=== PATIENT | female | born 1965 | race Two or more races ===

== ENCOUNTER 2020-10-28 11:34 | Inpatient (IN) | payer OTHER ==
[2020-10-28] MEDS ORDERED: SODIUM CHLORIDE 0.9% 500 ML 500 ML IV STA (11:50)
[2020-10-28 12:14] LABS: Basophils # (A) 0.1 k/uL (0-0.2); Basophils % (A) 1 %; Eosinophils # (A) 0.2 k/uL (0-0.7); Eosinophils % (A) 2 %; HCT 37.1 % (34.0-46.0); HGB 12.3 gm/dL (11.4-16.0); Lymphocytes # (A) 1.5 k/uL (1.0-4.8); Lymphocytes % (A) 17 %; MCH 30.9 pg (25.0-35.0); MCHC 33.2 g/dL (31.0-37.0); MCV 92.9 fL (80.0-100.0); Monocytes # (A) 0.7 k/uL (0-1.0); Monocytes % (A) 8 %; Neutrophils # (A) 6.2 k/uL (1.3-7.7); Neutrophils % (A) 71 %; Platelet Count 510 k/uL (150-450); RBC 3.99 m/uL (3.80-5.40); RDW 12.1 % (11.5-15.5); WBC 8.8 k/uL (3.8-10.6)
[2020-10-28 12:16] LABS: Appearance,Urine Clear (Clear); Bilirubin,Urine Negative (Negative); Blood,Urine Negative (Negative); Color,Urine Light Yellow; Glucose,Urine (UA) Negative (Negative); Ketones,Urine Negative (Negative); Leukocyte Esterase,Urine Trace (Negative); Nitrite,Urine Negative (Negative); PH, Urine 6.5 (5.0-8.0); Protein,Urine Negative (Negative); RBC,Urine <1 /hpf (0-5); Specific Gravity,Urine 1.005 (1.001-1.035); Urobilinogen,Urine <2.0 mg/dL (<2.0); WBC,Urine 3 /hpf (0-5)
--- NOTE | 2020-10-28 12:19 | ED ---
Abdominal Pain HPI - General Chief Complaint: Abdominal Pain Stated Complaint: abd distention Time Seen by Provider: 10/28/20 11:41 Source: patient, RN notes reviewed Mode of arrival: ambulatory Limitations: no limitations - History of Present Illness Initial Comments: 54-year-old female presents emergency Department chief complaint abdominal pain and swelling. Patient states that she has not had a good bowel movement over a week states over the last couple weeks she's noticed that she's had increased abdominal distention she's had mild discomfort occasionally on the right side. She denies any melena, hematochezia, hematemesis, coffee-ground emesis, dysuria hematuria. Patient has no significant abdominal issues in the past. Patient denies any liver disease denies fevers chills chest pain states that she's had no shortness breath no leg pain or leg swelling. Patient states she had a small bowel movement this morning which is more liquid stools or anything. Patient was seen by urgent care sent for further evaluation. - Related Data Home Medications Medication Instructions Recorded Confirmed Psyllium Husk (with Sugar) 6 gm PO DAILY 10/28/20 10/28/20 [Metamucil Powder] polyethylene glycoL 3350 [Miralax] 17 gm PO DAILY PRN 10/28/20 10/28/20 Allergies Allergy/AdvReac Type Severity Reaction Status Date / Time No Known Allergies Allergy Verified 10/28/20 13:19 Review of Systems ROS Statement: Those systems with pertinent positive or pertinent negative responses have been documented in the HPI. ROS Other: All systems not noted in ROS Statement are negative. Past Medical History Past Medical History: No Reported History History of Any Multi-Drug Resistant Organisms: None Reported Past Surgical History: Hernia Repair Past Psychological History: Anxiety Smoking Status: Never smoker Past Alcohol Use History: None Reported Past Drug Use History: None Reported General Exam Limitations: no limitations General appearance: alert, in no apparent distress Head exam: Present: atraumatic, normocephalic, normal inspection Neck exam: Present: normal inspection, full ROM. Absent: tenderness, meningismus, lymphadenopathy Respiratory exam: Present: normal lung sounds bilaterally. Absent: respiratory distress, wheezes, rales, rhonchi, stridor Cardiovascular Exam: Present: regular rate, normal rhythm, normal heart sounds. Absent: systolic murmur, diastolic murmur, rubs, gallop, clicks GI/Abdominal exam: Present: soft, distended, tenderness (Minimal), normal bowel sounds. Absent: guarding, rebound, rigid Back exam: Absent: CVA tenderness (R), CVA tenderness (L) Neurological exam: Present: alert, oriented X3, reflexes normal. Absent: motor sensory deficit Skin exam: Present: warm, dry, intact, normal color. Absent: rash Course Vital Signs 10/28/20 10/28/20 11:36 13:20 Temperature 97.6 F Pulse Rate 88 95 Respiratory 18 16 Rate Blood Pressure 131/67 99/62 O2 Sat by Pulse 99 99 Oximetry Medical Decision Making - Medical Decision Making CT reviewed shows evidence of large amount of ascites, no other acute Abnormality he there is no significant mL is on lab work other than mild elevated liver enzymes and low albumin. Patient has not been alcohol drinker. There is no clear reason for her ascites at this time in which the patient will be admitted for further workup with GI. - Lab Data Result diagrams: 10/28/20 12:09 10/28/20 12:09 Lab Results 10/28/20 10/28/20 10/28/20 Range/Units 12:09 12:09 12:09 WBC 8.8 (3.8-10.6) k/uL RBC 3.99 (3.80-5.40) m/uL Hgb 12.3 (11.4-16.0) gm/dL Hct 37.1 (34.0-46.0) % MCV 92.9 (80.0-100.0) fL MCH 30.9 (25.0-35.0) pg MCHC 33.2 (31.0-37.0) g/dL RDW 12.1 (11.5-15.5) % Plt Count 510 H (150-450) k/uL MPV 7.0 Neutrophils % 71 % Lymphocytes % 17 % Monocytes % 8 % Eosinophils % 2 % Basophils % 1 % Neutrophils # 6.2 (1.3-7.7) k/uL Lymphocytes # 1.5 (1.0-4.8) k/uL Monocytes # 0.7 (0-1.0) k/uL Eosinophils # 0.2 (0-0.7) k/uL Basophils # 0.1 (0-0.2) k/uL PT 10.5 (9.0-12.0) sec INR 1.0 (<1.2) APTT 23.1 (22.0-30.0) sec Sodium (137-145) mmol/L Potassium (3.5-5.1) mmol/L Chloride (98-107) mmol/L Carbon Dioxide (22-30) mmol/L Anion Gap mmol/L BUN (7-17) mg/dL Creatinine (0.52-1.04) mg/dL Est GFR (CKD-EPI)AfAm (>60 ml/min/1.73 sqM) Est GFR (CKD-EPI)NonAf (>60 ml/min/1.73 sqM) Glucose (74-99) mg/dL Plasma Lactic Acid Yasmani (0.7-2.0) mmol/L Calcium (8.4-10.2) mg/dL Total Bilirubin (0.2-1.3) mg/dL AST (14-36) U/L ALT (4-34) U/L Alkaline Phosphatase (38-126) U/L Total Protein (6.3-8.2) g/dL Albumin (3.5-5.0) g/dL Amylase (30-110) U/L Lipase (23-300) U/L Urine Color Light Yellow Urine Appearance Clear (Clear) Urine pH 6.5 (5.0-8.0) Ur Specific [place] 1.005 (1.001-1.035) Urine Protein Negative (Negative) Urine Glucose (UA) Negative (Negative) Urine Ketones Negative (Negative) Urine Blood Negative (Negative) Urine Nitrite Negative (Negative) Urine Bilirubin Negative (Negative) Urine Urobilinogen <2.0 (<2.0) mg/dL Ur Leukocyte Esterase Trace H (Negative) Urine RBC <1 (0-5) /hpf Urine WBC 3 (0-5) /hpf 10/28/20 10/28/20 Range/Units 12:09 12:09 WBC (3.8-10.6) k/uL RBC (3.80-5.40) m/uL Hgb (11.4-16.0) gm/dL Hct (34.0-46.0) % MCV (80.0-100.0) fL MCH (25.0-35.0) pg MCHC (31.0-37.0) g/dL RDW (11.5-15.5) % Plt Count (150-450) k/uL MPV Neutrophils % % Lymphocytes % % Monocytes % % Eosinophils % % Basophils % % Neutrophils # (1.3-7.7) k/uL Lymphocytes # (1.0-4.8) k/uL Monocytes # (0-1.0) k/uL Eosinophils # (0-0.7) k/uL Basophils # (0-0.2) k/uL PT (9.0-12.0) sec INR (<1.2) APTT (22.0-30.0) sec Sodium 130 L (137-145) mmol/L Potassium 4.6 (3.5-5.1) mmol/L Chloride 94 L (98-107) mmol/L Carbon Dioxide 28 (22-30) mmol/L Anion Gap 8 mmol/L BUN 12 (7-17) mg/dL Creatinine 0.60 (0.52-1.04) mg/dL Est GFR (CKD-EPI)AfAm >90 (>60 ml/min/1.73 sqM) Est GFR (CKD-EPI)NonAf >90 (>60 ml/min/1.73 sqM) Glucose 104 H (74-99) mg/dL Plasma Lactic Acid Yasmani 1.0 (0.7-2.0) mmol/L Calcium 9.5 (8.4-10.2) mg/dL Total Bilirubin 0.9 (0.2-1.3) mg/dL AST 40 H (14-36) U/L ALT 27 (4-34) U/L Alkaline Phosphatase 199 H (38-126) U/L Total Protein 6.4 (6.3-8.2) g/dL Albumin 3.4 L (3.5-5.0) g/dL Amylase 176 H (30-110) U/L Lipase 62 (23-300) U/L Urine Color Urine Appearance (Clear) Urine pH (5.0-8.0) Ur Specific [place] (1.001-1.035) Urine Protein (Negative) Urine Glucose (UA) (Negative) Urine Ketones (Negative) Urine Blood (Negative) Urine Nitrite (Negative) Urine Bilirubin (Negative) Urine Urobilinogen (<2.0) mg/dL Ur Leukocyte Esterase (Negative) Urine RBC (0-5) /hpf Urine WBC (0-5) /hpf Disposition Clinical Impression: Ascites, Abdominal pain Disposition: ADMITTED IP TO THIS HOSP Condition: Fair Referrals: None,Stated [Primary Care Provider] - 1-2 days
[2020-10-28 12:24] LABS: ALT 27 U/L (4-34); AST 40 U/L (14-36); African American GFR (CKD) >90 (>60 ml/min/1.73 sqM); Albumin 3.4 g/dL (3.5-5.0); Alkaline Phosphatase 199 U/L (38-126); Amylase 176 U/L (30-110); Anion Gap 8 mmol/L; Blood Urea Nitrogen 12 mg/dL (7-17); Calcium 9.5 mg/dL (8.4-10.2); Carbon Dioxide 28 mmol/L (22-30); Chloride 94 mmol/L (98-107); Glucose 104 mg/dL (74-99); Lipase 62 U/L (23-300); Non-African American GFR(CKD) >90 (>60 ml/min/1.73 sqM); Potassium 4.6 mmol/L (3.5-5.1); Sodium 130 mmol/L (137-145); Total Bilirubin 0.9 mg/dL (0.2-1.3); Total Protein 6.4 g/dL (6.3-8.2)
[2020-10-28 12:25] LABS: Partial Thromboplastin Time 23.1 sec (22.0-30.0); Prothrombin Time 10.5 sec (9.0-12.0)
--- NOTE | 2020-10-28 13:14 | CT ---
EXAMINATION TYPE: CT abdomen pelvis w con DATE OF EXAM: 10/28/2020 COMPARISON: None INDICATION: constipation, bloating DLP: 763.7 mGycm, Automated exposure control for dose reduction was used. CONTRAST: 100 mL of Isovue 300. Study performed without Oral Contrast TECHNIQUE: Axial images were obtained from above the diaphragm to the pubic rami in the axial plane a t 5 mm thick sections. Reconstructed images are reviewed on the computer in the coronal plane. FINDINGS: Limited CT sections are obtained the lung bases. The lung bases are clear. Small hiatal hernia is p resent. CT ABDOMEN: Abundant ascites is present. Liver: Normal Spleen: Scattered calcified granuloma are within the spleen. Pancreas: Normal Adrenal glands: The adrenal glands are normal. Gallbladder: Normal Kidneys: No masses are evident. No hydronephrosis is present. No cysts are present. Delayed images were obtained through the kidneys, which remain unremarkable. Aorta: Vascular calcification is within the aorta. Inferior vena cava: Normal. CT PELVIS: Loops of bowel within the abdomen and pelvis are normal. Studies without oral contrast limiting b owel evaluation. Appendix: Normal as visualized. Urinary bladder: Normal. Genitourinary structures: Uterus appears normal. Adnexal regions appear normal. Osseous structures: No suspicious lytic or sclerotic lesions. IMPRESSIONS: 1. Ascites.
[2020-10-28] MEDS ORDERED: NALOXONE 0.4 MG/ML 1 ML VIAL IV PRN (13:34)
--- NOTE | 2020-10-28 14:38 | US ---
EXAMINATION TYPE: US liver DATE OF EXAM: 10/28/2020 COMPARISON: CT performed same day CLINICAL HISTORY: 54-year-old female Ascites. ABD distention TECHNIQUE: Multiple sonographic images of the right upper quadrant are obtained. FINDINGS: EXAM MEASUREMENTS: Liver Length: 14.9 cm Gallbladder Wall: 0.3 cm CBD: 0.4 cm Right Kidney: 11.1 x 4.2 x 4.9 cm Pancreas: Obscured by bowel gas Liver: Small 5 mm echogenic lesion anterior right liver lobe. Otherwise, there is normal homogeneous appearance without focal lesion. Gallbladder: No abnormal gallbladder distention, wall thickening, or shadowing calculi. Adenomyomatosis anterior wall with ringdown artifact. Evidence for sonographic Flores's sign: No CBD: wnl Right Kidney: wnl Moderate amount of ascites present surrounding the liver and within the right flank IMPRESSION: 1. Moderate ascites visualized. 2. Small 5 mm echogenic lesion anterior right liver lobe probably represents a tiny hemangioma. 3-6 m onth follow-up ultrasound recommended to reassess as this is not clearly demonstrated by CT. 3. Benign adenomyomatosis of the gallbladder. 4. Second look at the patient's CT performed earlier today suggests diffuse omental cake and abnormal solid cystic lesions of the bilateral adnexa in addition to the ascites. Correlate with CA-125 and p ossibility of metastatic ovarian cancer.
--- NOTE | 2020-10-28 16:39 | P.HPIM ---
History of Present Illness Patient is a pleasant 54-year-old female came in with complaints of abdominal distention for couple weeks found to have ascites. Patient denied any significant pain but was comparing of discomfort. Patient initially believed she may be constipated got some medications for constipation which relieved medications for her other discomfort. Patient denied any fever chills patient denied any history of alcohol abuse. Patient denied any significant past medical history in the past. Review of Systems REVIEW OF SYSTEMS: CONSTITUTIONAL: No fever, no malaise, no fatigue. HEENT: No recent visual problems or hearing problems. Denied any sore throat. CARDIOVASCULAR: No chest pain, orthopnea, PND, no palpitations, no syncope. PULMONARY: No shortness of breath, no cough, no hemoptysis. GASTROINTESTINAL: No diarrhea, no nausea, no vomiting. NEUROLOGICAL: No headaches, no weakness, no numbness. HEMATOLOGICAL: Denies any bleeding or petechiae. GENITOURINARY: Denies any burning micturition, frequency, or urgency. MUSCULOSKELETAL/RHEUMATOLOGICAL: Denies any joint pain, swelling, or any muscle pain. ENDOCRINE: Denies any polyuria or polydipsia. The rest of the 14-point review of systems is negative. Past Medical History Past Medical History: Asthma Additional Past Medical History / Comment(s): Bronchitis, chronic low back pain/mild scoliosis, sinus problems/seasonal allergies. History of Any Multi-Drug Resistant Organisms: None Reported Past Surgical History: Hernia Repair Additional Past Surgical History / Comment(s): Umbilical hernia, D&Cs, wisdom teeth extractions. Additional Past Anesthesia/Blood Transfusion Reaction / Comment(s): Hypotensive with hernia surgery Smoking Status: Former smoker - Past Family History Mother Family Medical History: No Reported History Additional Family Medical History / Comment(s): Mother is 83 yrs old and healthy Father Family Medical History: Cancer Additional Family Medical History / Comment(s): Father is at 85 yrs. He had colon cancer. Medications and Allergies Home Medications Medication Instructions Recorded Confirmed Type Psyllium Husk (with Sugar) 6 gm PO DAILY 10/28/20 10/28/20 History [Metamucil Powder] polyethylene glycoL 3350 [Miralax] 17 gm PO DAILY PRN 10/28/20 10/28/20 History Allergies Allergy/AdvReac Type Severity Reaction Status Date / Time No Known Allergies Allergy Verified 10/28/20 13:19 Physical Exam Vitals: Vital Signs Temp Pulse Resp BP Pulse Ox 10/28/20 15:19 95 18 101/78 100 10/28/20 13:20 95 16 99/62 99 10/28/20 11:36 97.6 F 88 18 131/67 99 Intake and Output 10/28/20 10/28/20 10/28/20 06:59 14:59 22:59 Other: Weight 66.088 kg 66.088 kg PHYSICAL EXAMINATION: GENERAL: The patient is alert and oriented x3, not in any acute distress. Well developed, well nourished. HEENT: Pupils are round and equally reacting to light. EOMI. No scleral icterus. No conjunctival pallor. Normocephalic, atraumatic. No pharyngeal erythema. No thyromegaly. CARDIOVASCULAR: S1 and S2 present. No murmurs, rubs, or gallops. PULMONARY: Chest is clear to auscultation, no wheezing or crackles. ABDOMEN: Distended abdomen with fluid shift. MUSCULOSKELETAL: No joint swelling or deformity. EXTREMITIES: No cyanosis, clubbing, or pedal edema. NEUROLOGICAL: Gross neurological examination did not reveal any focal deficits. SKIN: No rashes. Results CBC & Chem 7: 10/28/20 12:09 10/28/20 12:09 Labs: Abnormal Lab Results - Last 24 Hours (Table) 10/28/20 10/28/20 10/28/20 Range/Units 12:09 12:09 12:09 Plt Count 510 H (150-450) k/uL Sodium 130 L (137-145) mmol/L Chloride 94 L (98-107) mmol/L Glucose 104 H (74-99) mg/dL AST 40 H (14-36) U/L Alkaline Phosphatase 199 H (38-126) U/L Albumin 3.4 L (3.5-5.0) g/dL Amylase 176 H (30-110) U/L Ur Leukocyte Esterase Trace H (Negative) Thrombosis Risk Factor Assmnt - Choose All That Apply Any of the Below Risk Factors Present?: Yes Each Factor Represents 1 point: Age 41-60 years Other Risk Factors: No Other congenital or acquired thrombophilia - If yes, enter type in comment: No Thrombosis Risk Factor Assessment Total Risk Factor Score: 1 Thrombosis Risk Factor Assessment Level: Low Risk Assessment and Plan Plan: -Ascites: Patient doesn't have any risk factors for cirrhosis patient does have a family history of colon cancer in father. CT of the abdomen is suspicious for adnexal masses and there is a concern of ovarian cancer I'll obtain tumor markers for ovarian cancer, gynecology will be consulted, ordered ultrasound- guided paracentesis rate will obtain the LDH, cytology cell count protein and albumin. Patient will be started on IV Lasix. -Hyponatremia: Hypervolemic hyponatremia expected to improve with IV Lasix -Anxiety disorder.
[2020-10-28] MEDS: FUROSEMIDE 10 MG/ML 4 ML VIAL IV SCH (20:13)
[2020-10-29] MEDS ORDERED: ONDANSETRON 4 MG/2 ML VIAL IVP PRN (02:18)
[2020-10-29] MEDS ORDERED: SODIUM CHLORIDE 0.9% 500 ML 500 ML IV ONE (02:18)
[2020-10-29 06:40] LABS: ALT 29 U/L (4-34); AST 46 U/L (14-36); African American GFR (CKD) >90 (>60 ml/min/1.73 sqM); Albumin 3.1 g/dL (3.5-5.0); Alkaline Phosphatase 185 U/L (38-126); Anion Gap 8 mmol/L; Blood Urea Nitrogen 12 mg/dL (7-17); Calcium 8.9 mg/dL (8.4-10.2); Carbon Dioxide 30 mmol/L (22-30); Chloride 94 mmol/L (98-107); Glucose 108 mg/dL (74-99); Non-African American GFR(CKD) >90 (>60 ml/min/1.73 sqM); Potassium 4.7 mmol/L (3.5-5.1); Sodium 132 mmol/L (137-145); Total Bilirubin 0.7 mg/dL (0.2-1.3)
[2020-10-29] MEDS: FUROSEMIDE 10 MG/ML 4 ML VIAL IV SCH (08:48)
--- NOTE | 2020-10-29 09:09 | P.CON ---
Consult Note - . Consult date: 10/29/20 Assessment/Plan:: This is a 54-year-old white female 6 para 2022 last menstrual period 5-6 years ago. Patient presented to the emergency room yesterday with "my stomach is swollen". She noticed increased abdominal swelling approximately 2 weeks ago. She states she has been fatigued, and not feeling well, but changed to working nights in July but she was just adjusting to new schedule. Her weight has been stable. Appetite is good. She has no other complaints or Past medical history is essentially negative. Past surgical history D&C 2, umbilical herniorrhaphy, wisdom teeth extracted. Past obstetric history normal spontaneous vaginal deliveries 4, 1 infant 24 hours of life. The remaining children are alive and healthy. Current medications Colleen as needed for seasonal ALLERGIES. ALLERGIES none known. Social history patient smoked briefly in her 20s. She denies alcohol or drug use. She works at [employer], lives at home alone in [place] as she is . Family history father had colon cancer in his 50s, at age 86. Mother is healthy at age 83. A maternal grandmother as well as a maternal aunt both had breast cancer. Patient's last mammogram was 5 years ago. On exam patient is 5 foot 5 inches, 146 pounds, vital signs are stable with the exception of her pulse in the 120s. HEENT exam is negative, good dentition, no thyromegaly. Chest is clear in all hernandez. Cardiac exam reveals regular rate and rhythm. Abdomen is distended to the xiphoid process. It is tense. There are hypoactive bowel sounds. Extremities reveal no edema, good peripheral pulses, good range of motion. Cervix is small and mobile, firm. It pelvic examination is very difficult secondary to an amount of pressure from above resulting from a large amount of ascites. CA-125 is over 12,000. UA is negative. Patient is dehydrated clinically. Computed tomography scan reveals normal-appearing ovaries and uterus, a large amount of abdominal ascites is noted. Impression: Massive abdominal ascites, suspect ovarian cancer. Elevated CA-125. Patient scheduled for sonographic tenting of the fluid today. Await cytology report. I did discuss with the patient our considerations in terms of the differential diagnosis. Will follow.
--- NOTE | 2020-10-29 13:39 | P.PN ---
Subjective Progress Note Date: 10/29/20 Patient is a pleasant 54-year-old female came in with complaints of abdominal distention for couple weeks found to have ascites. Patient denied any significant pain but was comparing of discomfort. Patient initially believed she may be constipated got some medications for constipation which relieved me dications for her other discomfort. Patient denied any fever chills patient denied any history of alcohol abuse. Patient denied any significant past medical history in the past. 10/29/2020 Patient is seen and evaluated and follow-up this morning currently awaiting to undergo paracentesis with interventional radiology for ascites and continued abdominal distention. Gynecology consulted and following. CA 125 marker above 12,000. Patient is maintained on IV Lasix although held this morning as she was feeling dizzy in a moment of hypotension. Will await paracentesis and cytology report. Review of systems: Constitutional: No reports of fatigue, fever, or chills Cardiovascular: No reports of chest pain or palpitations Respiratory: No reports of shortness of breath or cough GI: No reports of nausea, vomiting, or diarrhea, reports continued abdominal distention that is nontender : No reports of dysuria or retention Neurovascular: No reports of weakness or numbness All medications have been reviewed Objective - Vital Signs Vital signs: Vital Signs Temp 98.3 F 10/29/20 07:40 Pulse 114 H 10/29/20 11:15 Resp 18 10/29/20 11:15 BP 95/57 10/29/20 11:15 Pulse Ox 95 10/29/20 11:15 Intake & Output 10/28/20 10/29/20 10/29/20 18:59 06:59 18:59 Intake Total 240 Output Total 50 600 50 Balance 190 -600 -50 Weight 66.3 kg 64.1 kg Intake: Oral 240 Output: Urine 50 600 50 Other: Voiding Method Toilet # Bowel Movements 1 - Exam GENERAL: The patient is alert and oriented x3, not in any acute distress. Well developed, well nourished. HEENT: Pupils are round and equally reacting to light. EOMI. No scleral icterus. No conjunctival pallor. Normocephalic, atraumatic. No pharyngeal erythema. No thyromegaly. CARDIOVASCULAR: S1 and S2 present. No murmurs, rubs, or gallops. PULMONARY: Chest is clear to auscultation, no wheezing or crackles. ABDOMEN: Distended abdomen with fluid shift. soft, non-tender, taut MUSCULOSKELETAL: No joint swelling or deformity. EXTREMITIES: No cyanosis, clubbing, or pedal edema. NEUROLOGICAL: Gross neurological examination did not reveal any focal deficits. SKIN: No rashes. - Labs CBC & Chem 7: 10/28/20 12:09 10/29/20 05:38 Labs: Abnormal Lab Results - Last 24 Hours (Table) 10/28/20 10/28/20 10/28/20 Range/Units 12:09 12:09 12:09 Plt Count 510 H (150-450) k/uL Sodium 130 L (137-145) mmol/L Chloride 94 L (98-107) mmol/L Glucose 104 H (74-99) mg/dL AST 40 H (14-36) U/L Alkaline Phosphatase 199 H (38-126) U/L Total Protein (6.3-8.2) g/dL Albumin 3.4 L (3.5-5.0) g/dL Amylase 176 H (30-110) U/L CA 125 Antigen (0.0-30.1) U/mL Ur Leukocyte Esterase Trace H (Negative) 10/28/20 10/29/20 Range/Units 12:09 05:38 Plt Count (150-450) k/uL Sodium 132 L (137-145) mmol/L Chloride 94 L (98-107) mmol/L Glucose 108 H (74-99) mg/dL AST 46 H (14-36) U/L Alkaline Phosphatase 185 H (38-126) U/L Total Protein 6.0 L (6.3-8.2) g/dL Albumin 3.1 L (3.5-5.0) g/dL Amylase (30-110) U/L [place] 125 Antigen >99998.0 H (0.0-30.1) U/mL Ur Leukocyte Esterase (Negative) Assessment and Plan Assessment: -Ascites: Patient doesn't have any risk factors for cirrhosis patient does have a family history of colon cancer in father. CT of the abdomen is suspicious for adnexal masses and there is a concern of ovarian cancer. [place]125 [place] [address]. Gynecology consulted and following. Patient to undergo U/S guided paracentesis with IR today. Labs ordered and pending at this time. Patient maintained on IV Lasix. -Hyponatremia: Hypervolemic hyponatremia expected to improve with IV Lasix, improving, current sodium is 132 -Anxiety disorder Plan: Continue with current medications. Patient is maintained on IV lasix and will continue. Patient had lower blood pressure readings and feeling dizzy and lasix was held this morning by nursing staff. Patient to undergo paracentesis today and labs ordered and are pending. Follow up cytology and gynecology following. CA 125 marker elevated. Sodium improved and will repeat labs in am.
--- NOTE | 2020-10-29 14:46 | US ---
Ultrasound-guided paracentesis. DATE OF EXAM: 10/29/2020 CLINICAL HISTORY: Ascites The procedure was discussed with the patient. The risks, complications, benefits, and alternatives we re discussed and any questions were answered. Informed consent was obtained. The patient was placed s upine on the ultrasound table and prepped and draped in the usual sterile fashion. All elements of maximal barrier technique were utilized. Under ultrasound guidance, access into the right lower quadrant was obtained, via the paracentesis catheter system and direct ultrasound guidanc e. Approximately 2.8 liters of serous fluid was removed. The patient was stable throughout the procedure and remained stable upon discharge from Department of Radiology. Sample sent to pathology for analys is. IMPRESSION: Successful paracentesis under ultrasound guidance.
[2020-10-29 16:48] LABS: Appearance,BF Cloudy; Color,BF Orange; Nucleated Cells, Body Fluid 1075 /uL; RBC, Body Fluid 6750 /uL
[2020-10-29 16:53] LABS: Mononuclear WBC,Body Fluid 75 %; Polynuclear WBC,Body Fluid 24 %; Total Cells Counted,Body Fluid 100
--- NOTE | 2020-10-29 17:10 | CONS ---
CONSULTATION DATE OF DICTATION: 10/29/2020 REASON FOR CONSULTATION: New-onset ascites. HISTORY OF PRESENT ILLNESS: The patient is a 54-year-old pleasant white female who came into the emergency room complaining of abdominal distention for the last 2-3 weeks' duration. She denies any abdominal pain. No recent weight loss. No nausea, no vomiting. No rectal bleeding or melena. She came to the emergency room and had a CT of the abdomen and pelvis done that showed massive ascites. Hence we are consulted in regards to this issue. The patient denies any history of chronic liver disease. No history of jaundice or hepatitis in the past. No history of alcohol abuse. PAST MEDICAL HISTORY: Significant for asthma. PAST SURGICAL HISTORY: Hernia repair. MEDICATIONS AT HOME: MiraLAX as needed. ALLERGIES: NO KNOWN DRUG ALLERGIES. SOCIAL HISTORY: No smoking. No alcohol use. FAMILY HISTORY: Mother is healthy at 83. Father at 85 with colon cancer. REVIEW OF SYSTEMS: CARDIOPULMONARY: No chest pain or shortness of breath. GENITOURINARY: No dysuria or hematuria. MUSCULOSKELETAL: Unremarkable. SKIN: Unremarkable. ENDOCRINE: Unremarkable. PSYCHIATRIC: Unremarkable. NEUROLOGY: Unremarkable. ENT/VISION: Unremarkable. CONSTITUTIONAL: No recent weight loss. No fever, chills, night sweats. PHYSICAL EXAMINATION: Blood pressure is 100/64, pulse rate 125, temperature 99.1. HEENT examination unremarkable. Conjunctivae pink. Sclerae anicteric. Oral cavity no lesions. NECK: No JVD or lymph node enlargement. CHEST: Clear to auscultation. HEART: Regular rate and rhythm. ABDOMEN: Soft. There was some free fluid noted. She just returned from paracentesis and 3.8 L of fluid was removed. EXTREMITIES: No pedal edema. SKIN: No rashes. NEUROLOGIC: Alert and oriented x3. No focal deficits. LABS: WBC 8.8, hemoglobin 12.3, platelets normal. Basic metabolic panel is within normal limits. AST 40, ALT 27, T-bilirubin 0.9 and alkaline phosphatase is 199. CA-125 was more than 12,000. She had a CT of the abdomen and pelvis done in the emergency room that showed evidence of ascites; no other masses identified; small hiatal hernia noted. Uterus appeared normal. Adnexal regions also appeared normal. IMPRESSION: New-onset ascites with elevated CA-125 at more than 12,000 consistent with BAKERY TECHNICIAN malignancy. The patient does not have any history of chronic liver disease or history of alcohol use. RECOMMENDATIONS: 1. Will proceed with large-volume paracentesis for diagnostic and therapeutic purposes and send it for fluid analysis as well as cytology. 2. Obtain BAKERY TECHNICIAN consultation. 3. Symptomatic and supportive care. 4. Will follow with you closely. Thank you for this consultation. NATE / MORTEZAN: [id number] /
--- NOTE | 2020-10-29 20:48 | XR ---
EXAMINATION TYPE: XR chest 1V DATE OF EXAM: 10/29/2020 COMPARISON: NONE HISTORY: Elevated heart rate TECHNIQUE: Single view FINDINGS: There is no heart failure nor confluent pneumonic infiltrate. Costophrenic angles are clear . There are calcified granulomata at the pulmonary samantha. There is no pleural effusion. Bony thorax is intact. IMPRESSION: No active cardiopulmonary disease. Old granulomatous disease.
[2020-10-29 23:36] LABS: Total Protein, Body Fluid 3740 mg/dL
[2020-10-29 23:55] LABS: Glucose, BF Source Ascites; Glucose, Body Fluid 99 mg/dL; LDH, Body Fluid Source Ascites
[2020-10-30 00:16] LABS: Albumin, Fluid Source Ascites
--- NOTE | 2020-10-30 08:27 | P.PN ---
Subjective Progress Note Date: 10/30/20 Principal diagnosis: Ascites, tachycardia Objective - Vital Signs Vital signs: Vital Signs Temp 98.2 F 10/30/20 02:57 Pulse 117 H 10/30/20 01:58 Resp 18 10/30/20 01:58 BP 104/72 10/30/20 01:58 Pulse Ox 98 10/30/20 01:58 Intake & Output 10/29/20 10/30/20 10/30/20 18:59 06:59 18:59 Intake Total 1500 477 Output Total 500 950 Balance 1000 -473 Weight 64.1 kg Intake: Intake, IV Titration 237 Amount Sodium Chloride 0.9% 500 237 ml 500 ml @ 999 mls/hr IV .Q31M ONE Rx#:[id number] Oral 1500 240 Output: Urine 500 950 Other: Voiding Method Toilet Toilet # Voids 1 # Bowel Movements 1 - Constitutional General appearance: Present: average body habitus, cooperative - EENT Eyes: Present: PERRLA ENT: Present: hearing grossly normal - Respiratory Respiratory: bilateral: CTA - Cardiovascular Rhythm: regular - Gastrointestinal Gastrointestinal Comment(s): Softly distended consistant with ascites, clinically improved after sonographic tap yesterday General gastrointestinal: Present: distended - Neurologic Neurologic: Present: CNII-XII intact - Musculoskeletal Musculoskeletal: Present: gait normal - Psychiatric Psychiatric: Present: A&O x's 3, appropriate affect, intact judgment & insight - Labs CBC & Chem 7: 10/28/20 12:09 10/29/20 05:38 Labs: Microbiology - Last 24 Hours (Table) 10/29/20 10:25 Gram Stain - Preliminary Ascites Fluid Body Fluid Culture - Preliminary 10/29/20 10:25 Anaerobic Culture - Preliminary Ascites Fluid Assessment and Plan Assessment: Ascitic fluid, cytology pending. Continued tachycardia Plan: Would recommend follow up with [employer], Dr. Steen with [facility], for likely staging procedure if cytology is consistent with ovarian or primary peritoneal cancer. Discussed with patient. Management medically at present for continued but improving tachycardia. Thank you for the consult. Time with Patient: Less than 30
[2020-10-30 11:01] LABS: HCT 38.8 % (34.0-46.0); HGB 12.4 gm/dL (11.4-16.0); MCH 29.9 pg (25.0-35.0); MCHC 31.9 g/dL (31.0-37.0); MCV 93.6 fL (80.0-100.0); Mean Platelet Volume 7.3; Platelet Count 533 k/uL (150-450); RBC 4.14 m/uL (3.80-5.40); RDW 12.5 % (11.5-15.5)
[2020-10-30 11:10] LABS: ALT 28 U/L (4-34); AST 46 U/L (14-36); African American GFR (CKD) >90 (>60 ml/min/1.73 sqM); Albumin/Globulin Ratio 1.1; Alkaline Phosphatase 170 U/L (38-126); Anion Gap 7 mmol/L; Blood Urea Nitrogen 14 mg/dL (7-17); Calcium 8.7 mg/dL (8.4-10.2); Carbon Dioxide 27 mmol/L (22-30); Chloride 95 mmol/L (98-107); Globulin 2.8 g/dL; Glucose 107 mg/dL (74-99); Non-African American GFR(CKD) >90 (>60 ml/min/1.73 sqM); Potassium 4.3 mmol/L (3.5-5.1); Sodium 129 mmol/L (137-145); Total Bilirubin 0.8 mg/dL (0.2-1.3); Total Protein 5.8 g/dL (6.3-8.2)
[2020-10-30] MEDS ORDERED: SODIUM CHLORIDE 0.9% 1,000 ML IV ONE (11:48)
--- NOTE | 2020-10-30 13:00 | P.PN ---
Subjective Progress Note Date: 10/30/20 Principal diagnosis: New-onset ascites This is a pleasant 54-year-old white female who came into the emergency room complaining of abdominal distention for the last 2 weeks duration. She states she noticed becoming very uncomfortable and the distention and worsening over the last 2-3 days prior to admission. She denies any recent weight loss, nausea or vomiting. She had a admission CT of the abdomen and pelvis done which showed ascites, she is status post therapeutic and diagnostic paracentesis yesterday. They removed 2.8 L of fluid, fluid cytology ordered and pending. Patient had a CEA 125 greater than 12,000. Today she states she is feeling much better, distention is improved. She denies any abdominal pain, nausea, or vomiting. Objective - Vital Signs Vital signs: Vital Signs Temp 98.2 F 10/30/20 02:57 Pulse 117 H 10/30/20 01:58 Resp 18 10/30/20 01:58 BP 104/72 10/30/20 01:58 Pulse Ox 98 10/30/20 01:58 Intake & Output 10/29/20 10/30/20 10/30/20 18:59 06:59 18:59 Intake Total 1500 477 Output Total 500 950 Balance 1000 -473 Weight 64.1 kg Intake: Intake, IV Titration 237 Amount Sodium Chloride 0.9% 500 237 ml 500 ml @ 999 mls/hr IV .Q31M ONE Rx#:[id number] Oral 1500 240 Output: Urine 500 950 Other: Voiding Method Toilet Toilet # Voids 1 # Bowel Movements 1 - Exam General appearance: The patient is alert, oriented, appears in no acute distress. HET: Head is normocephalic and atraumatic. Conjunctiva pink. Sclera anicteric. Neck: Supple without lymphadenopathy. Abdomen: Soft, nontender, mildly distended with bowel sounds. No guarding or rigidity. Extremities: Normal skin color and turgor. No pedal edema Skin: No rashes, no jaundice Neurological: No focal deficits. Alert and oriented 3. - Labs CBC & Chem 7: 10/30/20 10:16 10/30/20 10:16 Labs: Microbiology - Last 24 Hours (Table) 10/29/20 10:25 Gram Stain - Preliminary Ascites Fluid Body Fluid Culture - Preliminary 02/16/21 10:25 Anaerobic Culture - Preliminary Ascites Fluid Assessment and Plan (1) Ascites Narrative/Plan: New Onset ascites with elevated CA-125 at more than 12,000 consistent with BOTTOM LOADER malignancy. Patient does not have any history of chronic liver disease or history of alcohol abuse. He underwent therapeutic and diagnostic paracentesis yesterday was 2.8 L of fluid removal. Fluid cytology ordered and pending. Fluid albumin 2.90, SAAG score less than 1.1, unlikely dealing with liver as source. Current Visit: Yes Status: Acute Code(s): R18.8 - OTHER ASCITES SNOMED Code(s): 624407285 (2) Pulmonary emboli Narrative/Plan: This patient had a positive d-dimer, CTA of chest showed bilateral pulmonary emboli. Will be started on heparin drip, managed by primary medicine team. Current Visit: Yes Status: Acute Code(s): I26.99 - OTHER PULMONARY EMBOLISM WITHOUT ACUTE COR PULMONALE SNOMED Code(s): 38781003 Plan: 1. Supportive care 2. BOTTOM LOADER consultation, recommendations appreciated 3. Patient is status post paracentesis, Cytology studies pending 4. Agree with anticoagulation for bilateral pulmonary emboli being managed by primary medicine team Thank you for this consultation, we will continue to follow Dr. Carlin Conn I agree with the dictator's note, documented as a scribe by Karen Hurley.
--- NOTE | 2020-10-30 14:10 | CT ---
CT CHEST FOR PULMONARY EMBOLISM. EXAMINATION TYPE: CT angio chest DATE OF EXAM: 10/30/2020 INDICATION: Elevated d-dimer. CT DLP: 137.6 mGycm, Automated exposure control for dose reduction was used. CONTRAST: Patient injected with 100 mL of Isovue 370. COMPARISON: None TECHNIQUE: CT of the chest is performed on a spiral scan at 2 mm thick sections. Study is performed with intravenous contrast timed for evaluation for pulmonary embolism. This will limit additional po rtions of the evaluation. 3-D MIP images reconstructed by the technologist are reviewed on the compu ter in the coronal and sagittal planes. FINDINGS: Pulmonary emboli extending into the left lower lobe. Couple of smaller pulmonary emboli are in the ri t lower lobe pulmonary arteries. No mediastinal or hilar adenopathy enlarged by CT criteria is evident. The ascending aorta diameter at the level of the main pulmonary artery is 2.9 cm. The main pulmonary artery diameter at the bifur cation is 2.4 cm. Lung windows are clear. Azygos fissure is present. There may be some prominence of the azygos vein. Limited CT section through the upper abdomen. Ascites is present. IMPRESSIONS: 1. Bilateral lower lobe pulmonary emboli. 2. Ascites.
[2020-10-30] MEDS ORDERED: HEPARIN SODIUM,PORCINE 10,000 UNIT/ML 1 ML VIAL IV ONE (14:52)
[2020-10-30 15:14] LABS: Partial Thromboplastin Time 23.5 sec (22.0-30.0); Prothrombin Time 10.8 sec (9.0-12.0)
[2020-10-30] MEDS: HEPARIN SOD,PORK IN 0.45% NACL 25,000 UNIT in 0.45% NACL 1 250ML.BAG IV SCH (16:22)
[2020-10-30] MEDS: HEPARIN SODIUM,PORCINE 5,000 UNIT/ML 1 ML VIAL IV PRN (22:24)
[2020-10-31] MEDS: HEPARIN SODIUM,PORCINE 5,000 UNIT/ML 1 ML VIAL IV PRN (06:32)
[2020-10-31 09:00] LABS: Basophils # (A) 0.13 X 10*3/uL (0.00-0.10); Basophils % (A) 1.2 %; Eosinophils # (A) 0.04 X 10*3/uL (0.04-0.35); Eosinophils % (A) 0.4 %; HGB 11.5 g/dL (12.0-15.0); Lymphocytes # (A) 1.99 X 10*3/uL (0.90-5.00); Lymphocytes % (A) 18.8 %; MCH 30.3 pg (27.0-32.0); MCHC 32.9 g/dL (32.0-37.0); MCV 92.3 fL (80.0-97.0); Mean Platelet Volume 10.4 fL (9.5-12.2); Monocytes # (A) 1.22 X 10*3/uL (0.20-1.00); Monocytes % (A) 11.5 %; Neutrophils # (A) 7.18 X 10*3/uL (1.80-7.70); Neutrophils % (A) 67.6 %; Platelet Count 497 X 10*3/uL (140-440); RBC 3.79 X 10*6/uL (4.10-5.20); RDW 12.5 % (11.5-14.5); WBC 10.61 X 10*3/uL (4.50-10.00)
[2020-10-31] MEDS ORDERED: SODIUM CHLORIDE 0.9% 1,000 ML IV SCH (09:15)
--- NOTE | 2020-10-31 10:47 | P.CONS ---
History of Present Illness - Reason for Consult Consult date: 10/31/20 sudden onset ascites Requesting physician: Chi Elizabeth - Chief Complaint abd pain and distension - History of Present Illness Ms. Nagel is a very pleasant 54 yo female that we have been asked to see for presentation to the hospital with abdominal pain and gross ascites. Patient is status post a paracentesis, pathology pending. CT AP revealed ascites and maybe omental caking. US liver hemangioma, concerns for omental caking. Her presenting symptoms have improved post para. She states the swelling in her abdomen has been progressive x 1 week, denies any prior symptoms, no associated symptoms to report other the discomfort and bloating. CTA ordered for elevated d-dimer, revealed bilateral pulmonary emboli, she denied any profound symptoms or sudden onset of shortness of breath. Started on heparin drip, no bleeding to report. Patient has no personal history of malignancy, denies unintentional weight loss, no vaginal bleeding, she has noted that her stool has been looser recently, no other constitutional symptoms reported, pt states that she feels really good overall. Patient has never had a colonoscopy or EGD. Her last mammogram and Pap smear were 5+ years ago. She has a remote history of smoking, no EtOH. Review of Systems 14 point ROS is negative except as stated in HPI Past Medical History Past Medical History: Asthma Additional Past Medical History / Comment(s): Bronchitis, chronic low back pain/mild scoliosis, sinus problems/seasonal allergies. History of Any Multi-Drug Resistant Organisms: None Reported Past Surgical History: Hernia Repair Additional Past Surgical History / Comment(s): Umbilical hernia, D&Cs, wisdom teeth extractions. Additional Past Anesthesia/Blood Transfusion Reaction / Comm: Hypotensive with hernia surgery Smoking Status: Former smoker - Past Family History Mother Family Medical History: No Reported History Additional Family Medical History / Comment(s): Mother is 83 yrs old and healthy Father Family Medical History: Cancer Additional Family Medical History / Comment(s): Father is at 85 yrs. He had colon cancer. Medications and Allergies Home Medications Medication Instructions Recorded Confirmed Type Psyllium Husk (with Sugar) 6 gm PO DAILY 10/28/20 10/28/20 History [Metamucil Powder] polyethylene glycoL 3350 [Miralax] 17 gm PO DAILY PRN 10/28/20 10/28/20 History Apixaban [Eliquis Starter Pack 0 mg PO DIRECTED 30 Days #1 pack 10/31/20 Rx (for VTE)] Allergies Allergy/AdvReac Type Severity Reaction Status Date / Time No Known Allergies Allergy Verified 10/28/20 13:19 Physical Exam Vitals: Vital Signs Temp Pulse Resp BP Pulse Ox 10/31/20 06:14 111/70 10/31/20 04:43 99.3 F 123 H 16 95/56 96 10/30/20 20:35 98.8 F 120 H 18 109/72 98 10/30/20 20:10 18 10/30/20 13:00 97.7 F 66 16 111/66 95 Intake and Output 10/30/20 10/31/20 10/31/20 22:59 06:59 14:59 Intake Total 66.572 709.911 Balance 66.572 709.911 Intake: Intake, IV Titration 66.572 109.911 Amount Heparin Sod,Pork in 0.45% 66.572 109.911 NaCl 25,000 unit In 0.45 % NaCl 1 250ml.bag @ 18 UNITS/KG/HR 11.034 mls/hr IV .[id number] [facility] Rx#: [id number] Oral 600 Other: Voiding Method Toilet # Voids 2 2 # Bowel Movements 1 Weight 62.6 kg - Constitutional General appearance: average body habitus, cooperative, no acute distress - EENT Eyes: anicteric sclerae, EOMI, poor dentition ENT: hearing grossly normal, normal oropharynx - Neck Neck: no lymphadenopathy, normal ROM - Respiratory Respiratory: bilateral: CTA - Cardiovascular Rhythm: regular Heart sounds: normal: S1, S2 Abnormal Heart Sounds: no systolic murmur, no diastolic murmur, no rub, no S3 Gallop, no S4 Gallop, no click, no other leg Peripheral Edema: bilateral: None - Gastrointestinal General gastrointestinal: no absent bowel sounds, no decreased bowel sounds, distended, no hepatomegaly, no hyperactive bowel sounds, normal bowel sounds, no organomegaly, no rigid, no scaphoid, soft, no splenomegaly, no tenderness, no umbilical hernia, no ventral hernia - Integumentary Integumentary: normal - Neurologic Neurologic: CNII-XII intact - Musculoskeletal Musculoskeletal: strength equal bilaterally - Psychiatric Psychiatric: A&O x's 3, appropriate affect, intact judgment & insight Results CBC & Chem 7: 10/31/20 04:45 10/30/20 10:16 Labs: Abnormal Lab Results - Last 24 Hours (Table) 10/30/20 10/30/20 10/30/20 Range/Units 10:16 10:16 11:17 WBC (4.50-10.00) X 10*3/uL RBC (4.10-5.20) X 10*6/uL Hgb (12.0-15.0) g/dL Hct (37.2-46.3) % Plt Count 533 H (150-450) k/uL Immature Gran # (0.00-0.04) X 10*3/uL Monocytes # (0.20-1.00) X 10*3/uL Basophils # (0.00-0.10) X 10*3/uL APTT (22.0-30.0) sec D-Dimer 10.78 H (<0.60) mg/L FEU Sodium 129 L (137-145) mmol/L Chloride 95 L (98-107) mmol/L Glucose 107 H (74-99) mg/dL AST 46 H (14-36) U/L Alkaline Phosphatase 170 H (38-126) U/L Total Protein 5.8 L (6.3-8.2) g/dL Albumin 3.0 L (3.5-5.0) g/dL 10/30/20 10/31/20 10/31/20 Range/Units 21:45 04:45 04:45 WBC 10.61 H (4.50-10.00) X 10*3/uL RBC 3.79 L (4.10-5.20) X 10*6/uL Hgb 11.5 L (12.0-15.0) g/dL Hct 35.0 L (37.2-46.3) % Plt Count 497 H (150-450) k/uL Immature Gran # 0.05 H (0.00-0.04) X 10*3/uL Monocytes # 1.22 H (0.20-1.00) X 10*3/uL Basophils # 0.13 H (0.00-0.10) X 10*3/uL APTT 30.7 H 34.5 H (22.0-30.0) sec D-Dimer (<0.60) mg/L FEU Sodium (137-145) mmol/L Chloride (98-107) mmol/L Glucose (74-99) mg/dL AST (14-36) U/L Alkaline Phosphatase (38-126) U/L Total Protein (6.3-8.2) g/dL Albumin (3.5-5.0) g/dL Microbiology - Last 24 Hours (Table) 10/29/20 10:25 Gram Stain - Preliminary Ascites Fluid Body Fluid Culture - Preliminary CT scan - abdomen: report reviewed CT scan - chest: report reviewed CT scan - pelvis: report reviewed Assessment and Plan (1) Ascites Narrative/Plan: Patient is status post paracentesis with improvement in her presenting symptoms. Pending pathology. Dr. Wilson reviewed the findings of the CT AP and CTA. Explained that these findings are all highly suspicious for malignant process. Most consistent with a LIVESTOCK JUDGING COACH malignancy but, other malignancies such as colon cancer cannot be completely excluded at this time. No prognosis or treatment discussions at this time as it would be speculative. Patient verbalized understanding. If LIVESTOCK JUDGING COACH malignancy confirmed, patient will be referred to Surgical LIVESTOCK JUDGING COACH Oncologist for evaluation. Imaging does not identify any disease outside of the abdomen and pelvis. Patient may certainly be a surgical candidate. She may need neoadjuvant neoadjuvant treatment but, that decision is up to [employer] [facility]. Info obtained for referral. Current Visit: Yes Status: Acute Priority: High Code(s): R18.8 - OTHER ASCITES SNOMED Code(s): 966941874 (2) Pulmonary emboli Narrative/Plan: Bilateral pulmonary emboli. Unprovoked. Ordered bilateral lower extremity Dopplers for baseline. Continue heparin drip. DOAC is going to be preferred oral anticoagulant as patient is likely going to require paracentesis intermittently until diagnosis confirmed and therapy can begin. Current Visit: Yes Status: Acute Priority: High Code(s): I26.99 - OTHER PULMONARY EMBOLISM WITHOUT ACUTE COR PULMONALE SNOMED Code(s): 17200049 Plan: Doctor attests: I performed a history and physical examination of this patient, developed impression and plan of care, discussed with dictator. I agree with dictators note, documented as a scribe.
[2020-10-31] MEDS: HEPARIN SOD,PORK IN 0.45% NACL 25,000 UNIT in 0.45% NACL 1 250ML.BAG IV SCH ×2 (11:29→11:33)
[2020-10-31] MEDS ORDERED: APIXABAN 5 MG TAB PO SCH (11:45)
--- NOTE | 2020-10-31 11:52 | P.PN ---
Subjective Progress Note Date: 10/31/20 Principal diagnosis: New-onset ascites This is a pleasant 54-year-old white female who came into the emergency room complaining of abdominal distention for the last 2 weeks duration. She states she noticed becoming very uncomfortable and the distention and worsening over the last 2-3 days prior to admission. She denies any recent weight loss, nausea or vomiting. She had a admission CT of the abdomen and pelvis done which showed ascites, she is status post therapeutic and diagnostic paracentesis yesterday. They removed 2.8 L of fluid, fluid cytology ordered and pending. Patient had a CEA 125 greater than 12,000. Yesterday the patient had a d-dimer that was ordered and elevated, therefore had a CT a of the chest which showed bilateral pulmonary emboli. She was started on a heparin drip. Oncology has been consulted. The patient states overall she is feeling well. She denies any shortness of breath, chest pain, abdominal pain, nausea, or vomiting. States she feels her abdominal distention is stable and not returning. Objective - Vital Signs Vital signs: Vital Signs Temp 99.3 F 10/31/20 04:43 Pulse 123 H 10/31/20 04:43 Resp 16 10/31/20 04:43 BP 111/70 10/31/20 06:14 Pulse Ox 96 10/31/20 04:43 Intake & Output 10/30/20 10/31/20 10/31/20 18:59 06:59 18:59 Intake Total 776.483 Balance 776.483 Weight 61.3 kg 62.6 kg Intake: Intake, IV Titration 176.483 Amount Heparin Sod,Pork in 0.45% 176.483 NaCl 25,000 unit In 0.45 % NaCl 1 250ml.bag @ 18 UNITS/KG/HR 11.034 mls/hr IV .[id number] [facility] Rx#: [id number] Oral 600 Other: Voiding Method Toilet Toilet # Voids 2 2 # Bowel Movements 1 - Exam General appearance: The patient is alert, oriented, appears in no acute distress. HET: Head is normocephalic and atraumatic. Conjunctiva pink. Sclera anicteric. Neck: Supple without lymphadenopathy. Abdomen: Soft, nontender, mildly distended with bowel sounds. No guarding or rigidity. Extremities: Normal skin color and turgor. No pedal edema Skin: No rashes, no jaundice Neurological: No focal deficits. Alert and oriented 3. - Labs CBC & Chem 7: 10/31/20 04:45 10/30/20 10:16 Labs: Abnormal Lab Results - Last 24 Hours (Table) 10/30/20 10/30/20 10/30/20 Range/Units 10:16 10:16 11:17 WBC (4.50-10.00) X 10*3/uL RBC (4.10-5.20) X 10*6/uL Hgb (12.0-15.0) g/dL Hct (37.2-46.3) % Plt Count 533 H (150-450) k/uL Immature Gran # (0.00-0.04) X 10*3/uL Monocytes # (0.20-1.00) X 10*3/uL Basophils # (0.00-0.10) X 10*3/uL APTT (22.0-30.0) sec D-Dimer 10.78 H (<0.60) mg/L FEU Sodium 129 L (137-145) mmol/L Chloride 95 L (98-107) mmol/L Glucose 107 H (74-99) mg/dL AST 46 H (14-36) U/L Alkaline Phosphatase 170 H (38-126) U/L Total Protein 5.8 L (6.3-8.2) g/dL Albumin 3.0 L (3.5-5.0) g/dL 10/30/20 10/31/20 10/31/20 Range/Units 21:45 04:45 04:45 WBC 10.61 H (4.50-10.00) X 10*3/uL RBC 3.79 L (4.10-5.20) X 10*6/uL Hgb 11.5 L (12.0-15.0) g/dL Hct 35.0 L (37.2-46.3) % Plt Count 497 H (150-450) k/uL Immature Gran # 0.05 H (0.00-0.04) X 10*3/uL Monocytes # 1.22 H (0.20-1.00) X 10*3/uL Basophils # 0.13 H (0.00-0.10) X 10*3/uL APTT 30.7 H 34.5 H (22.0-30.0) sec D-Dimer (<0.60) mg/L FEU Sodium (137-145) mmol/L Chloride (98-107) mmol/L Glucose (74-99) mg/dL AST (14-36) U/L Alkaline Phosphatase (38-126) U/L Total Protein (6.3-8.2) g/dL Albumin (3.5-5.0) g/dL Microbiology - Last 24 Hours (Table) 10/29/20 10:25 Gram Stain - Preliminary Ascites Fluid Body Fluid Culture - Preliminary Assessment and Plan (1) Ascites Narrative/Plan: New Onset ascites with elevated CA-125 at more than 12,000 consistent with FURNACE LOADER malignancy. Patient does not have any history of chronic liver disease or h istory of alcohol abuse. He underwent therapeutic and diagnostic paracentesis yesterday was 2.8 L of fluid removal. Fluid cytology ordered and pending. Fluid albumin 2.90, SAAG score less than 1.1, unlikely dealing with liver as source. Current Visit: Yes Status: Acute Priority: High Code(s): R18.8 - OTHER ASCITES SNOMED Code(s): 679285900 (2) Pulmonary emboli Narrative/Plan: This patient had a positive d-dimer, CTA of chest showed bilateral pulmonary emboli. Will be started on heparin drip, managed by primary medicine team. Oncology/otology on consult. Recommending patient be transitioned to DOAC. Current Visit: Yes Status: Acute Priority: High Code(s): I26.99 - OTHER PULMONARY EMBOLISM WITHOUT ACUTE COR PULMONALE SNOMED Code(s): 23597587 Plan: 1. Supportive care 2. FURNACE LOADER consultation, recommendations appreciated 3. Patient is status post paracentesis, Cytology studies pending 4. Agree with anticoagulation for bilateral pulmonary emboli being managed by primary medicine team 5. Appreciate oncology recommendations Thank you for this consultation, we will continue to follow Dr. Carlin Conn I agree with the dictator's note, documented as a scribe by Karen Hurley.
[2020-10-31 12:26] VITALS: BP 102/71; RESP 17; TEMP 99.1
--- NOTE | 2020-10-31 13:15 | US ---
EXAMINATION TYPE: US venous doppler duplex LE DATE OF EXAM: 10/31/2020 1:11 PM COMPARISON: NONE CLINICAL HISTORY: 54-year-old female bilateral PE. SIDE PERFORMED: Bilateral, Taking blood thinner now. TECHNIQUE: The lower extremity deep venous system is examined utilizing real time linear array sonog yasmany with graded compression, doppler sonography and color-flow sonography. 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 Right Leg: Negative for DVT Left Leg: Negative for DVT IMPRESSION: No evidence for DVT within the bilateral lower extremities. Incidentally, some slow flow is noted in the bilateral common femoral veins.
[2020-10-31 13:16] VITALS: PULSE 115
--- NOTE | 2020-10-31 13:52 | P.PN ---
Subjective Progress Note Date: 10/30/20 Patient is a pleasant 54-year-old female came in with complaints of abdominal distention for couple weeks found to have ascites. Patient denied any significant pain but was comparing of discomfort. Patient initially believed she may be constipated got some medications for constipation which relieved me dications for her other discomfort. Patient denied any fever chills patient denied any history of alcohol abuse. Patient denied any significant past medical history in the past. 10/29/2020 Patient is seen and evaluated and follow-up this morning currently awaiting to undergo paracentesis with interventional radiology for ascites and continued abdominal distention. Gynecology consulted and following. CA 125 marker above 12,000. Patient is maintained on IV Lasix although held this morning as she was feeling dizzy in a moment of hypotension. Will await paracentesis and cytology report. 10/30/2020 Patient had a wound 3.5 L of acetic fluid that was removed. Patient ascites fluid analysis is is exudative are not consistent with cirrhosis. Patient remained tachycardic because of which obtained d-dimer and TSH d-dimer was abnormal because of which obtained a CT of the chest which showed bilateral lower lobe pulmonary emboli patient was started on IV heparin will be evaluated for Eliquis. Patient although numerically pretty stable. Patient was receiving IV Lasix which led to dehydration IV Lasix was discontinued patient will be given bolus of IV fluid patient is also hyponatremic because of hypovolemia. Oncology will be consulted as well I was notified later in the day that the patient fluid cytology showing cancer cells. Objective - Vital Signs Vital signs: Vital Signs Temp 99.1 F 10/31/20 12:25 Pulse 114 H 10/31/20 12:25 Resp 17 10/31/20 12:25 BP 102/71 10/31/20 12:25 Pulse Ox 97 10/31/20 12:25 Intake & Output 10/30/20 10/31/20 10/31/20 18:59 06:59 18:59 Intake Total 776.483 313.517 Balance 776.483 313.517 Weight 61.3 kg 62.6 kg Intake: Intake, IV Titration 176.483 73.517 Amount Heparin Sod,Pork in 0.45% 176.483 73.517 NaCl 25,000 unit In 0.45 % NaCl 1 250ml.bag @ 18 UNITS/KG/HR 11.034 mls/hr IV .[id number] [facility] Rx#: [id number] Oral 600 240 Other: Voiding Method Toilet Toilet Toilet # Voids 2 2 # Bowel Movements 1 - Exam PHYSICAL EXAMINATION: GENERAL: The patient is alert and oriented x3, not in any acute distress. Well developed, well nourished. HEENT: Pupils are round and equally reacting to light. EOMI. No scleral icterus. No conjunctival pallor. Normocephalic, atraumatic. No pharyngeal erythema. No thyromegaly. CARDIOVASCULAR: S1 and S2 present. No murmurs, rubs, or gallops. Tachycardic PULMONARY: Chest is clear to auscultation, no wheezing or crackles. ABDOMEN: Soft, still mildly distended nontender, normoactive bowel sounds. No palpable organomegaly. MUSCULOSKELETAL: No joint swelling or deformity. EXTREMITIES: No cyanosis, clubbing, or pedal edema. NEUROLOGICAL: Gross neurological examination did not reveal any focal deficits. SKIN: No rashes. - Labs CBC & Chem 7: 10/31/20 04:45 10/30/20 10:16 Labs: Abnormal Lab Results - Last 24 Hours (Table) 10/30/20 10/31/20 10/31/20 Range/Units 21:45 04:45 04:45 WBC 10.61 H (4.50-10.00) X 10*3/uL RBC 3.79 L (4.10-5.20) X 10*6/uL Hgb 11.5 L (12.0-15.0) g/dL Hct 35.0 L (37.2-46.3) % Plt Count 497 H (140-440) X 10*3/uL Immature Gran # 0.05 H (0.00-0.04) X 10*3/uL Monocytes # 1.22 H (0.20-1.00) X 10*3/uL Basophils # 0.13 H (0.00-0.10) X 10*3/uL APTT 30.7 H 34.5 H (22.0-30.0) sec 10/31/20 Range/Units 12:06 WBC (4.50-10.00) X 10*3/uL RBC (4.10-5.20) X 10*6/uL Hgb (12.0-15.0) g/dL Hct (37.2-46.3) % Plt Count (140-440) X 10*3/uL Immature Gran # (0.00-0.04) X 10*3/uL Monocytes # (0.20-1.00) X 10*3/uL Basophils # (0.00-0.10) X 10*3/uL APTT 33.2 H (22.0-30.0) sec Microbiology - Last 24 Hours (Table) 10/29/20 10:25 Gram Stain - Preliminary Ascites Fluid Body Fluid Culture - Preliminary Assessment and Plan Plan: -Ascites: 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 Patient has highly elevated CEA 125. --Hypovolemic hyponatremia: Patient will be given a bolus of IV fluid. -Bilateral PE secondary to cancer patient was started on IV heparin will be sosa luated for the Eliquis. -Tachycardia secondary to PE -Anxiety disorder Patient will be referred to PCP upon discharge and patient will be referred to gynecologic oncologist as well as medical oncology.
--- NOTE | 2020-11-01 14:29 | P.DS ---
Providers Date of admission: 10/28/20 13:34 Expected date of discharge: 10/31/20 Attending physician: Jorge Steele MD Consults: 10/28/20 13:34 Consult Physician Urgent Consulting Provider: Gail Conn Consult Reason/Comments: Ascites Do you want consulting provider notified?: Yes 10/28/20 16:45 Consult Physician Routine Consulting Provider: Elvira Pope Consult Reason/Comments: ? ovarian cancer Do you want consulting provider notified?: Yes 10/31/20 09:11 Consult Physician Routine Consulting Provider: Pantera Wilson Consult Reason/Comments: possible ovarian cancer Do you want consulting provider notified?: Yes Primary care physician: Stated None Hospital Course: final diagnosis -Ascites: Malignant ascites secondary to either ovarian cancer or omentum cancer. -highly elevated CA 125. -Hypovolemic hyponatremia -Bilateral PE secondary to cancer -Tachycardia secondary to PE -Anxiety disorder -Full code Discharge disposition Patient is being discharged in a stable condition with guarded prognosis to home. Patient will follow-up with Dr. Jan Trejo in the outpatient setting upon discharge. Patient also instructed to follow-up with oncology, GI, gynecology in the outpatient setting. Patient also instructed and will be provided resources with oncology to follow with gynecologic oncologist. Total time taken is greater than 35 minutes. Hospital course This is a 54-year-old female who was recently admitted with abdominal distention and found to have ascites and was being closely monitored. She was seen and evaluated by GI and underwent ultrasound guided paracentesis with IR with removal of 3-4 L. Patient also had preliminary report from fluid analysis showing cancerous cells although final report pending. Patient's CA 125 markers above 12,000. Patient was seen and evaluated by oncology and will be following up outpatient once pathology report is available. Patient also instructed follow-up with gynecology oncologist in the outpatient setting. Patient states she feels much better after paracentesis and would like to go home. Patient was also found to have bilateral lower lobe pulmonary emboli on a chest CT and initiated on heparin. Patient will continue with Eliquis in the outpatient setting. Patient currently has no health care coverage and was provided with a prescription and coupon for 1 free month and will follow-up with her primary care provider to discuss further options for anticoagulant. Currently no reports of chest pain, worsening shortness of breath, or palpitations. Patient is afebrile. No reports of nausea or vomiting and patient is tolerating diet. Patient will be discharged home today. On exam vital signs are stable. Cardio S1, S2 are muffled. Respiratory system shows diminished breath sounds at the bases with no wheezing or rhonchi noted. Abdomen is soft, mildly distended, and nontender. Nervous system shows no focal deficits. Please refer to medication reconciliation sheet for a list of medications. Patient Condition at Discharge: Fair Plan - Discharge Summary Discharge Rx Participant: No New Discharge Prescriptions: New Apixaban [Eliquis Starter Pack (for VTE)] 0 mg PO DIRECTED 30 Days #1 pack Continue polyethylene glycoL 3350 [Miralax] 17 gm PO DAILY PRN PRN Reason: Constipation Psyllium Husk (with Sugar) [Metamucil Powder] 6 gm PO DAILY Discharge Medication List Psyllium Husk (with Sugar) [Metamucil Powder] 6 gm PO DAILY 10/28/20 [History] polyethylene glycoL 3350 [Miralax] 17 gm PO DAILY PRN 10/28/20 [History] Apixaban [Eliquis Starter Pack (for VTE)] 0 mg PO DIRECTED 30 Days #1 pack 10/31/20 [Rx] Follow up Appointment(s)/Referral(s): Pantera Wilson MD [STAFF PHYSICIAN] - 1 Week (office will call patient with appt time and date after test results are in) Vernon Trejo MD [REFERRING] - 3 Days (patient must call office to schedule appt if she still wants to see .she is a new patient never seen before in office) Elvira Pope MD [STAFF PHYSICIAN] - 1 Week (patient will have to call and schedule follow up visit) Gail Conn MD [STAFF PHYSICIAN] - 11/13/20 11:00 am Patient Instructions/Handouts: Apixaban (By mouth), Pulmonary Embolism (GEN), Ascites (GEN) Activity/Diet/Wound Care/Special Instructions: Activity Limited until follow-up Follow-up with primary care provider upon discharge Follow-up with oncology and gynecology outpatient Continue with Eliquis 10 mg twice daily for 3 weeks and then continue with 5 mg twice daily thereafter Continue current diet Follow-up GI outpatient Discharge Disposition: HOME SELF-CARE
== END 2020-10-31 15:40 | disposition home or self-care (01) | DRG 754 ==
LOC: EC 11:34 → 5NMEDONC 13:34 → 6PED 14:59 → 5NMEDONC 10-30 08:21
PROVIDERS: ADMIT Internal Medicine; ATTEND Internal Medicine
PROC: 0W9G3ZZ Drainage of Peritoneal Cavity, Percutaneous Approach (ICD-10-PCS; principal; 2020-10-29)
DX: C56.2 Malignant neoplasm of left ovary (principal); I26.99 Other pulmonary embolism without acute cor pulmonale; R18.0 Malignant ascites; E87.1 Hypo-osmolality and hyponatremia; C56.1 Malignant neoplasm of right ovary; I95.9 Hypotension, unspecified; Z20.822 Contact with and (suspected) exposure to COVID-19; F41.9 Anxiety disorder, unspecified; J45.909 Unspecified asthma, uncomplicated; M41.9 Scoliosis, unspecified; G89.29 Other chronic pain; M54.5 Low back pain; E86.0 Dehydration; D18.03 Hemangioma of intra-abdominal structures; E87.70 Fluid overload, unspecified; R00.0 Tachycardia, unspecified; E86.1 Hypovolemia; Z79.899 Other long term (current) drug therapy; Z98.890 Other specified postprocedural states; Z87.891 Personal history of nicotine dependence; Z80.0 Family history of malignant neoplasm of digestive organs; Z80.3 Family history of malignant neoplasm of breast
CPT/HCPCS: 36415; 49083; 71045; 71275; 74177; 76705; 80053; 81001; 82042; 82105; 82150; 82272; 82945; 83605; 83615; 83690; 84157; 84443; 84484; 85025; 85027; 85379; 85610; 85730; 86304; 87070; 87075; 87205; 87635; 88108; 88305; 88341; 88342; 89050; 93005; 93970; 96360; 96361; 99285

== ENCOUNTER 2020-11-03 03:19 | Emergency (ER) | payer OTHER ==
[2020-11-03 04:02] LABS: Basophils # (A) 0.1 k/uL (0-0.2); Basophils % (A) 1 %; Eosinophils # (A) 0.2 k/uL (0-0.7); Eosinophils % (A) 2 %; HCT 40.3 % (34.0-46.0); HGB 13.3 gm/dL (11.4-16.0); Lymphocytes # (A) 1.4 k/uL (1.0-4.8); Lymphocytes % (A) 16 %; MCHC 32.9 g/dL (31.0-37.0); MCV 91.2 fL (80.0-100.0); Mean Platelet Volume 6.7; Monocytes # (A) 0.6 k/uL (0-1.0); Monocytes % (A) 6 %; Neutrophils # (A) 6.4 k/uL (1.3-7.7); Neutrophils % (A) 74 %; Platelet Count 642 k/uL (150-450); RBC 4.42 m/uL (3.80-5.40); RDW 12.3 % (11.5-15.5); WBC 8.7 k/uL (3.8-10.6)
--- NOTE | 2020-11-03 04:08 | ED ---
Abdominal Pain HPI - General Chief Complaint: Abdominal Pain Stated Complaint: ABD PAIN Time Seen by Provider: 11/03/20 03:37 Source: patient Mode of arrival: ambulatory Limitations: no limitations - History of Present Illness Initial Comments: This patient is a 54-year-old woman with recent diagnosis of suspected ovarian cancer, who presents for feeling of abdominal fullness and she states that also when she was lying flat it felt like it was limiting her breathing. Patient decided to come here for evaluation. She states that she then had an episode of vomiting and the symptoms had resolved. MD Complaint: abdominal pain -: hour(s) Location: LUQ, RUQ Radiation: none Severity: moderate Quality: fullness, other (Pressure) Consistency: now resolved Improves With: vomiting Worsens With: nothing Associated Symptoms: denies other symptoms - Related Data Home Medications Medication Instructions Recorded Confirmed Psyllium Husk (with Sugar) 6 gm PO DAILY 10/28/20 10/28/20 [Metamucil Powder] polyethylene glycoL 3350 [Miralax] 17 gm PO DAILY PRN 10/28/20 10/28/20 Previous Rx's Medication Instructions Recorded Apixaban [Eliquis Starter Pack 0 mg PO DIRECTED 30 Days #1 pack 10/31/20 (for VTE)] Allergies Allergy/AdvReac Type Severity Reaction Status Date / Time No Known Allergies Allergy Verified 10/28/20 13:19 Review of Systems ROS Statement: Those systems with pertinent positive or pertinent negative responses have been documented in the HPI. ROS Other: All systems not noted in ROS Statement are negative. Constitutional: Denies: fever, chills Respiratory: Denies: cough, dyspnea Cardiovascular: Denies: chest pain, palpitations, edema Gastrointestinal: Reports: as per HPI, abdominal pain, vomiting. Denies: diarrhea, melena, hematochezia Genitourinary: Denies: dysuria, hematuria Musculoskeletal: Denies: back pain Skin: Denies: rash Neurological: Denies: headache, weakness, numbness Past Medical History Past Medical History: Asthma Additional Past Medical History / Comment(s): Bronchitis, chronic low back pain/mild scoliosis, sinus problems/seasonal allergies. History of Any Multi-Drug Resistant Organisms: None Reported Past Surgical History: Hernia Repair Additional Past Surgical History / Comment(s): Umbilical hernia, D&Cs, wisdom teeth extractions. Additional Past Anesthesia/Blood Transfusion Reaction / Comment(s): Hypotensive with hernia surgery Past Psychological History: Anxiety Smoking Status: Former smoker Past Alcohol Use History: None Reported Past Drug Use History: None Reported - Past Family History Mother Family Medical History: No Reported History Additional Family Medical History / Comment(s): Mother is 83 yrs old and healthy Father Family Medical History: Cancer Additional Family Medical History / Comment(s): Father is at 85 yrs. He had colon cancer. General Exam Limitations: no limitations General appearance: alert, in no apparent distress Head exam: Present: atraumatic, normocephalic Eye exam: Present: normal appearance. Absent: scleral icterus, conjunctival injection ENT exam: Present: normal oropharynx Respiratory exam: Present: normal lung sounds bilaterally. Absent: respiratory distress, wheezes, rales, rhonchi, stridor Cardiovascular Exam: Present: regular rate, normal rhythm, normal heart sounds. Absent: systolic murmur, diastolic murmur, rubs, gallop GI/Abdominal exam: Present: soft, other (Moderate ascites). Absent: distended, tenderness, guarding, rebound, rigid, mass Extremities exam: Present: normal inspection, normal capillary refill. Absent: pedal edema, calf tenderness Back exam: Present: normal inspection. Absent: CVA tenderness (R), CVA tendern ess (L) Neurological exam: Present: alert Skin exam: Present: warm, dry, intact, normal color. Absent: rash Course Vital Signs 11/03/20 11/03/20 03:34 04:15 Temperature 98.0 F 98.2 F Pulse Rate 117 H 92 Respiratory 18 16 Rate Blood Pressure 132/74 108/71 O2 Sat by Pulse 98 98 Oximetry Medical Decision Making - Medical Decision Making Patient's 54-year-old woman presenting with abdominal pain had resolved after vomiting. Workup here does reveal that she has had mild worsening of hyponatremia. Patient was feeling better and wanted to go home and she will follow with her physicians. Return parameters discussed. - Lab Data Result diagrams: 11/03/20 03:55 11/03/20 03:55 Lab Results 11/03/20 11/03/20 11/03/20 Range/Units 03:55 03:55 04:38 WBC 8.7 (3.8-10.6) k/uL RBC 4.42 (3.80-5.40) m/uL Hgb 13.3 (11.4-16.0) gm/dL Hct 40.3 (34.0-46.0) % MCV 91.2 (80.0-100.0) fL MCH 30.0 (25.0-35.0) pg MCHC 32.9 (31.0-37.0) g/dL RDW 12.3 (11.5-15.5) % Plt Count 642 H (150-450) k/uL MPV 6.7 Neutrophils % 74 % Lymphocytes % 16 % Monocytes % 6 % Eosinophils % 2 % Basophils % 1 % Neutrophils # 6.4 (1.3-7.7) k/uL Lymphocytes # 1.4 (1.0-4.8) k/uL Monocytes # 0.6 (0-1.0) k/uL Eosinophils # 0.2 (0-0.7) k/uL Basophils # 0.1 (0-0.2) k/uL Sodium 127 L (137-145) mmol/L Potassium 4.5 (3.5-5.1) mmol/L Chloride 96 L (98-107) mmol/L Carbon Dioxide 22 (22-30) mmol/L Anion Gap 9 mmol/L BUN 14 (7-17) mg/dL Creatinine 0.55 (0.52-1.04) mg/dL Est GFR (CKD-EPI)AfAm >90 (>60 ml/min/1.73 sqM) Est GFR (CKD-EPI)NonAf >90 (>60 ml/min/1.73 sqM) Glucose 111 H (74-99) mg/dL Calcium 8.9 (8.4-10.2) mg/dL Total Bilirubin 0.7 (0.2-1.3) mg/dL AST 62 H (14-36) U/L ALT 36 H (4-34) U/L Alkaline Phosphatase 217 H (38-126) U/L Total Protein 5.9 L (6.3-8.2) g/dL Albumin 2.9 L (3.5-5.0) g/dL Amylase 161 H (30-110) U/L Lipase 56 (23-300) U/L Urine Color Yellow Urine Appearance Cloudy H (Clear) Urine pH 6.0 (5.0-8.0) Ur Specific [place] 1.017 (1.001-1.035) Urine Protein Trace H (Negative) Urine Glucose (UA) Negative (Negative) Urine Ketones 1+ H (Negative) Urine Blood Negative (Negative) Urine Nitrite Negative (Negative) Urine Bilirubin Negative (Negative) Urine Urobilinogen <2.0 (<2.0) mg/dL Ur Leukocyte Esterase Negative (Negative) Urine WBC 2 (0-5) /hpf Calcium Oxalate Crystal Rare H (None) /hpf Urine Bacteria Rare H (None) /hpf Urine Mucus Moderate H (None) /hpf Urine HCG, Qual (Not Detectd) 11/03/20 Range/Units 04:38 WBC (3.8-10.6) k/uL RBC (3.80-5.40) m/uL Hgb (11.4-16.0) gm/dL Hct (34.0-46.0) % MCV (80.0-100.0) fL MCH (25.0-35.0) pg MCHC (31.0-37.0) g/dL RDW (11.5-15.5) % Plt Count (150-450) k/uL MPV Neutrophils % % Lymphocytes % % Monocytes % % Eosinophils % % Basophils % % Neutrophils # (1.3-7.7) k/uL Lymphocytes # (1.0-4.8) k/uL Monocytes # (0-1.0) k/uL Eosinophils # (0-0.7) k/uL Basophils # (0-0.2) k/uL Sodium (137-145) mmol/L Potassium (3.5-5.1) mmol/L Chloride (98-107) mmol/L Carbon Dioxide (22-30) mmol/L Anion Gap mmol/L BUN (7-17) mg/dL Creatinine (0.52-1.04) mg/dL Est GFR (CKD-EPI)AfAm (>60 ml/min/1.73 sqM) Est GFR (CKD-EPI)NonAf (>60 ml/min/1.73 sqM) Glucose (74-99) mg/dL Calcium (8.4-10.2) mg/dL Total Bilirubin (0.2-1.3) mg/dL AST (14-36) U/L ALT (4-34) U/L Alkaline Phosphatase (38-126) U/L Total Protein (6.3-8.2) g/dL Albumin (3.5-5.0) g/dL Amylase (30-110) U/L Lipase (23-300) U/L Urine Color Urine Appearance (Clear) Urine pH (5.0-8.0) Ur Specific [place] (1.001-1.035) Urine Protein (Negative) Urine Glucose (UA) (Negative) Urine Ketones (Negative) Urine Blood (Negative) Urine Nitrite (Negative) Urine Bilirubin (Negative) Urine Urobilinogen (<2.0) mg/dL Ur Leukocyte Esterase (Negative) Urine WBC (0-5) /hpf Calcium Oxalate Crystal (None) /hpf Urine Bacteria (None) /hpf Urine Mucus (None) /hpf Urine HCG, Qual Not Detected (Not Detectd) Disposition Clinical Impression: Ascites, Abdominal pain, Hyponatremia Disposition: HOME SELF-CARE Condition: Fair Instructions (If sedation given, give patient instructions): Ascites (ED), Abdominal Pain (ED) Is patient prescribed a controlled substance at d/c from ED?: No Referrals: Vernon Trejo MD [Primary Care Provider] - 1-2 days
[2020-11-03 04:15] LABS: ALT 36 U/L (4-34); AST 62 U/L (14-36); African American GFR (CKD) >90 (>60 ml/min/1.73 sqM); Albumin 2.9 g/dL (3.5-5.0); Alkaline Phosphatase 217 U/L (38-126); Amylase 161 U/L (30-110); Anion Gap 9 mmol/L; Blood Urea Nitrogen 14 mg/dL (7-17); Calcium 8.9 mg/dL (8.4-10.2); Carbon Dioxide 22 mmol/L (22-30); Chloride 96 mmol/L (98-107); Glucose 111 mg/dL (74-99); Lipase 56 U/L (23-300); Non-African American GFR(CKD) >90 (>60 ml/min/1.73 sqM); Potassium 4.5 mmol/L (3.5-5.1); Sodium 127 mmol/L (137-145); Total Bilirubin 0.7 mg/dL (0.2-1.3); Total Protein 5.9 g/dL (6.3-8.2)
[2020-11-03 04:51] LABS: Appearance,Urine Cloudy (Clear); Bacteria,Urine Rare /hpf; Bilirubin,Urine Negative (Negative); Blood,Urine Negative (Negative); Calcium Oxalate Crystals,Urine Rare /hpf; Color,Urine Yellow; Glucose,Urine (UA) Negative (Negative); Ketones,Urine 1+ (Negative); Leukocyte Esterase,Urine Negative (Negative); Mucus,Urine Moderate /hpf; Nitrite,Urine Negative (Negative); Protein,Urine Trace (Negative); Specific Gravity,Urine 1.017 (1.001-1.035); Urobilinogen,Urine <2.0 mg/dL (<2.0); WBC,Urine 2 /hpf (0-5)
[2020-11-03 04:54] VITALS: BP 108/71; PULSE 92; RESP 16; TEMP 98.2
== END 2020-11-03 04:45 | disposition home or self-care (01) ==
LOC: EC 03:19
DX: E87.1 Hypo-osmolality and hyponatremia (principal); R18.8 Other ascites; R10.9 Unspecified abdominal pain; Z79.899 Other long term (current) drug therapy; Z87.891 Personal history of nicotine dependence
CPT/HCPCS: 36415; 80053; 81001; 81025; 82150; 83690; 85025; 99284

== ENCOUNTER 2020-11-09 10:53 | Inpatient (IN) | payer OTHER ==
[2020-11-09] MEDS ORDERED: HYDROmorphone 0.5 MG/0.5 ML SYRINGE IVP STA (11:28)
[2020-11-09] MEDS ORDERED: ONDANSETRON 4 MG/2 ML VIAL IVP STA (11:28)
[2020-11-09 12:08] LABS: Basophils # (A) 0.1 k/uL (0-0.2); Basophils % (A) 1 %; Eosinophils # (A) 0.2 k/uL (0-0.7); Eosinophils % (A) 2 %; HCT 40.5 % (34.0-46.0); HGB 13.4 gm/dL (11.4-16.0); Lymphocytes # (A) 1.4 k/uL (1.0-4.8); Lymphocytes % (A) 15 %; MCH 30.1 pg (25.0-35.0); MCHC 32.9 g/dL (31.0-37.0); MCV 91.4 fL (80.0-100.0); Mean Platelet Volume 7.2; Monocytes # (A) 0.7 k/uL (0-1.0); Monocytes % (A) 7 %; Neutrophils # (A) 7.1 k/uL (1.3-7.7); Neutrophils % (A) 74 %; Platelet Count 755 k/uL (150-450); RBC 4.43 m/uL (3.80-5.40); RDW 12.8 % (11.5-15.5); WBC 9.6 k/uL (3.8-10.6)
[2020-11-09 12:18] LABS: Partial Thromboplastin Time 25.2 sec (22.0-30.0)
--- NOTE | 2020-11-09 12:19 | XR ---
EXAMINATION TYPE: XR chest 2V DATE OF EXAM: 11/09/2020 COMPARISON: Chest x-ray October 29, 2020. CTA chest artery 2020. HISTORY: History of multiple. Cancer with shortness of breath. TECHNIQUE: Frontal and lateral views of the chest are obtained. FINDINGS: There is [id number] chronic parenchymal changes bilaterally without suspicious new f ocal air space opacity, pleural effusion, or pneumothorax seen. An azygos lobe/fissure is redemonstr ated. The cardiac silhouette size remains within normal limits. The osseous structures are intact. IMPRESSION: No new acute pulmonary process.
[2020-11-09 12:23] LABS: ALT 67 U/L (4-34); AST 88 U/L (14-36); African American GFR (CKD) >90 (>60 ml/min/1.73 sqM); Albumin 3.3 g/dL (3.5-5.0); Alkaline Phosphatase 211 U/L (38-126); Anion Gap 9 mmol/L; Blood Urea Nitrogen 17 mg/dL (7-17); Calcium 9.3 mg/dL (8.4-10.2); Carbon Dioxide 26 mmol/L (22-30); Chloride 95 mmol/L (98-107); Glucose 103 mg/dL (74-99); Lipase 52 U/L (23-300); Non-African American GFR(CKD) >90 (>60 ml/min/1.73 sqM); Potassium 4.6 mmol/L (3.5-5.1); Sodium 130 mmol/L (137-145); Total Bilirubin 0.6 mg/dL (0.2-1.3); Total Protein 6.3 g/dL (6.3-8.2)
[2020-11-09 12:31] LABS: Appearance,Urine Cloudy (Clear); Bilirubin,Urine Negative (Negative); Blood,Urine Negative (Negative); Calcium Oxalate Crystals,Urine Many /hpf; Color,Urine Yellow; Glucose,Urine (UA) Negative (Negative); Hyaline Casts,Urine 1 /lpf (0-2); Ketones,Urine Negative (Negative); Leukocyte Esterase,Urine Negative (Negative); Mucus,Urine Many /hpf; Nitrite,Urine Negative (Negative); Protein,Urine Trace (Negative); RBC,Urine 10 /hpf (0-5); Specific Gravity,Urine 1.022 (1.001-1.035); Squamous Epithelial Cell,Urine 1 /hpf (0-4); Urobilinogen,Urine <2.0 mg/dL (<2.0); WBC,Urine 6 /hpf (0-5)
[2020-11-09] MEDS ORDERED: SODIUM CHLORIDE 0.9% 1,000 ML IV ONE (12:50)
[2020-11-09] MEDS ORDERED: NALOXONE 0.4 MG/ML 1 ML VIAL IV PRN ×2 (12:53→14:14)
--- NOTE | 2020-11-09 12:53 | ED ---
Abdominal Pain HPI - General Chief Complaint: Abdominal Pain Stated Complaint: GI issues/sent by Dr. Conn Time Seen by Provider: 11/09/20 11:12 Source: patient, RN notes reviewed Mode of arrival: ambulatory Limitations: no limitations - History of Present Illness Initial Comments: This a 54-year-old female presents emergency Department chief complaint of increasing abdominal pain, distention. Patient's has a recently diagnosed ovarian cancer is seen Dr. cheney and. Being referred to [facility] oncology. Patient states her abdomen was drained over a week ago with states that it's increase in size, and discomfort. Patient states she is currently on Eliquis for PE but denies any chest pain or shortness of breath. Patient found to be tachycardic but states that she does not feel her heart racing no headache no dizziness denies any bleeding fevers or chills. - Related Data Home Medications Medication Instructions Recorded Confirmed Apixaban [Eliquis Starter Pack See Taper PO BID 11/09/20 11/09/20 (for VTE)] Allergies Allergy/AdvReac Type Severity Reaction Status Date / Time No Known Allergies Allergy Verified 11/09/20 11:57 Review of Systems ROS Statement: Those systems with pertinent positive or pertinent negative responses have been documented in the HPI. ROS Other: All systems not noted in ROS Statement are negative. Past Medical History Past Medical History: Asthma, Cancer Additional Past Medical History / Comment(s): Bronchitis, chronic low back pain/mild scoliosis, sinus problems/seasonal allergies. ovarian cancer History of Any Multi-Drug Resistant Organisms: None Reported Past Surgical History: Hernia Repair Additional Past Surgical History / Comment(s): Umbilical hernia, D&Cs, wisdom teeth extractions. Additional Past Anesthesia/Blood Transfusion Reaction / Comment(s): Hypotensive with hernia surgery Past Psychological History: Anxiety Smoking Status: Former smoker Past Alcohol Use History: None Reported Past Drug Use History: None Reported - Past Family History Mother Family Medical History: No Reported History Additional Family Medical History / Comment(s): Mother is 83 yrs old and healthy Father Family Medical History: Cancer Additional Family Medical History / Comment(s): Father is at 85 yrs. He had colon cancer. General Exam Limitations: no limitations General appearance: alert, in no apparent distress Head exam: Present: atraumatic, normocephalic, normal inspection Eye exam: Present: normal appearance, PERRL, EOMI. Absent: scleral icterus, conjunctival injection, periorbital swelling ENT exam: Present: normal oropharynx, mucous membranes moist Neck exam: Present: normal inspection, full ROM. Absent: tenderness, meningismus, lymphadenopathy Respiratory exam: Present: normal lung sounds bilaterally. Absent: respiratory distress, wheezes, rales, rhonchi, stridor Cardiovascular Exam: Present: normal rhythm, tachycardia, normal heart sounds. Absent: systolic murmur, diastolic murmur, rubs, gallop, clicks GI/Abdominal exam: Present: soft, distended, tenderness, rigid, normal bowel sounds. Absent: guarding, rebound Back exam: Absent: CVA tenderness (R), CVA tenderness (L) Neurological exam: Present: alert Course Vital Signs 11/09/20 11:07 Temperature 97.9 F Pulse Rate 117 H Respiratory 16 Rate Blood Pressure 89/65 O2 Sat by Pulse 97 Oximetry Medical Decision Making - Medical Decision Making 54-year-old presented for abdominal distention. Patient has severe ascites and which she does require paracentesis. Patient's case discussed with some physician with consult to interventional radiologist, oncology. He did recommend fluid bolus. Patient will be admitted with telemetry/ - Lab Data Result diagrams: 11/09/20 11:54 11/09/20 11:54 Lab Results 11/09/20 11/09/20 11/09/20 Range/Units 11:54 11:54 11:54 WBC 9.6 (3.8-10.6) k/uL RBC 4.43 (3.80-5.40) m/uL Hgb 13.4 (11.4-16.0) gm/dL Hct 40.5 (34.0-46.0) % MCV 91.4 (80.0-100.0) fL MCH 30.1 (25.0-35.0) pg MCHC 32.9 (31.0-37.0) g/dL RDW 12.8 (11.5-15.5) % Plt Count 755 H (150-450) k/uL MPV 7.2 Neutrophils % 74 % Lymphocytes % 15 % Monocytes % 7 % Eosinophils % 2 % Basophils % 1 % Neutrophils # 7.1 (1.3-7.7) k/uL Lymphocytes # 1.4 (1.0-4.8) k/uL Monocytes # 0.7 (0-1.0) k/uL Eosinophils # 0.2 (0-0.7) k/uL Basophils # 0.1 (0-0.2) k/uL PT 11.0 (9.0-12.0) sec INR 1.0 (<1.2) APTT 25.2 (22.0-30.0) sec Sodium (137-145) mmol/L Potassium (3.5-5.1) mmol/L Chloride (98-107) mmol/L Carbon Dioxide (22-30) mmol/L Anion Gap mmol/L BUN (7-17) mg/dL Creatinine (0.52-1.04) mg/dL Est GFR (CKD-EPI)AfAm (>60 ml/min/1.73 sqM) Est GFR (CKD-EPI)NonAf (>60 ml/min/1.73 sqM) Glucose (74-99) mg/dL Plasma Lactic Acid Yasmani (0.7-2.0) mmol/L Calcium (8.4-10.2) mg/dL Total Bilirubin (0.2-1.3) mg/dL AST (14-36) U/L ALT (4-34) U/L Alkaline Phosphatase (38-126) U/L Troponin I (0.000-0.034) ng/mL Total Protein (6.3-8.2) g/dL Albumin (3.5-5.0) g/dL Lipase (23-300) U/L Urine Color Yellow Urine Appearance Cloudy H (Clear) Urine pH 6.0 (5.0-8.0) Ur Specific [place] 1.022 (1.001-1.035) Urine Protein Trace H (Negative) Urine Glucose (UA) Negative (Negative) Urine Ketones Negative (Negative) Urine Blood Negative (Negative) Urine Nitrite Negative (Negative) Urine Bilirubin Negative (Negative) Urine Urobilinogen <2.0 (<2.0) mg/dL Ur Leukocyte Esterase Negative (Negative) Urine RBC 10 H (0-5) /hpf Urine WBC 6 H (0-5) /hpf Ur Squamous Epith Cells 1 (0-4) /hpf Calcium Oxalate Crystal Many H (None) /hpf Hyaline Casts 1 (0-2) /lpf Urine Mucus Many H (None) /hpf 11/09/20 11/09/20 11/09/20 Range/Units 11:54 11:54 11:54 WBC (3.8-10.6) k/uL RBC (3.80-5.40) m/uL Hgb (11.4-16.0) gm/dL Hct (34.0-46.0) % MCV (80.0-100.0) fL MCH (25.0-35.0) pg MCHC (31.0-37.0) g/dL RDW (11.5-15.5) % Plt Count (150-450) k/uL MPV Neutrophils % % Lymphocytes % % Monocytes % % Eosinophils % % Basophils % % Neutrophils # (1.3-7.7) k/uL Lymphocytes # (1.0-4.8) k/uL Monocytes # (0-1.0) k/uL Eosinophils # (0-0.7) k/uL Basophils # (0-0.2) k/uL PT (9.0-12.0) sec INR (<1.2) APTT (22.0-30.0) sec Sodium 130 L (137-145) mmol/L Potassium 4.6 (3.5-5.1) mmol/L Chloride 95 L (98-107) mmol/L Carbon Dioxide 26 (22-30) mmol/L Anion Gap 9 mmol/L BUN 17 (7-17) mg/dL Creatinine 0.56 (0.52-1.04) mg/dL Est GFR (CKD-EPI)AfAm >90 (>60 ml/min/1.73 sqM) Est GFR (CKD-EPI)NonAf >90 (>60 ml/min/1.73 sqM) Glucose 103 H (74-99) mg/dL Plasma Lactic Acid Yasmani 1.2 (0.7-2.0) mmol/L Calcium 9.3 (8.4-10.2) mg/dL Total Bilirubin 0.6 (0.2-1.3) mg/dL AST 88 H (14-36) U/L ALT 67 H (4-34) U/L Alkaline Phosphatase 211 H (38-126) U/L Troponin I <0.012 (0.000-0.034) ng/mL Total Protein 6.3 (6.3-8.2) g/dL Albumin 3.3 L (3.5-5.0) g/dL Lipase 52 (23-300) U/L Urine Color Urine Appearance (Clear) Urine pH (5.0-8.0) Ur Specific Moreland (1.001-1.035) Urine Protein (Negative) Urine Glucose (UA) (Negative) Urine Ketones (Negative) Urine Blood (Negative) Urine Nitrite (Negative) Urine Bilirubin (Negative) Urine Urobilinogen (<2.0) mg/dL Ur Leukocyte Esterase (Negative) Urine RBC (0-5) /hpf Urine WBC (0-5) /hpf Ur Squamous Epith Cells (0-4) /hpf Calcium Oxalate Crystal (None) /hpf Hyaline Casts (0-2) /lpf Urine Mucus (None) /hpf Disposition Clinical Impression: Tachycardia, Ascites, Hyponatremia, Pulmonary emboli, Ovarian cancer Disposition: ADMITTED IP TO THIS [facility] Condition: Serious Referrals: None,Stated [Primary Care Provider] - 1-2 days
--- NOTE | 2020-11-09 14:25 | P.HPIM ---
History of Present Illness H&P Date: 11/09/20 Chief Complaint: abdominal distension 54-year-old female presents emergency Department chief complaint of increasing abdominal pain, distention. Patient's has a recently diagnosed ovarian cancer, is seen Dr. lubin and will see a specialist with [facility] oncology at [facility] next week. Patient had a paracentesis done when she was in the hospital about 2 weeks ago, almost 3.5 L were drained out. Fluid pathology came back positive for malignant cells, ovarian cancer origin. Patient complained that she has not been able to eat a large amount of food due to early satiety. No nausea or vomiting. No diarrhea or urinary symptoms. No fevers or chills. Review of Systems Complete review of system performed, pertinent positives per HPI, otherwise negative Past Medical History Past Medical History: Asthma, Cancer Additional Past Medical History / Comment(s): Bronchitis, chronic low back pain/mild scoliosis, sinus problems/seasonal allergies. ovarian cancer History of Any Multi-Drug Resistant Organisms: None Reported Past Surgical History: Hernia Repair Additional Past Surgical History / Comment(s): Umbilical hernia, D&Cs, wisdom teeth extractions. Additional Past Anesthesia/Blood Transfusion Reaction / Comment(s): Hypotensive with hernia surgery Past Psychological History: Anxiety Smoking Status: Former smoker Past Alcohol Use History: None Reported Past Drug Use History: None Reported - Past Family History Mother Family Medical History: No Reported History Additional Family Medical History / Comment(s): Mother is 83 yrs old and healthy Father Family Medical History: Cancer Additional Family Medical History / Comment(s): Father is at 85 yrs. He had colon cancer. Medications and Allergies Home Medications Medication Instructions Recorded Confirmed Type Apixaban [Eliquis Starter Pack See Taper PO BID 11/09/20 11/09/20 History (for VTE)] Allergies Allergy/AdvReac Type Severity Reaction Status Date / Time No Known Allergies Allergy Verified 11/09/20 11:57 Physical Exam Vitals: Vital Signs Temp Pulse Resp BP Pulse Ox 11/09/20 14:05 97.9 F 102 H 18 110/75 98 11/09/20 14:00 102 H 18 110/75 98 11/09/20 13:00 18 98 11/09/20 12:11 18 111/66 98 11/09/20 11:07 97.9 F 117 H 16 89/65 97 Intake and Output 11/08/20 11/09/20 11/09/20 22:59 06:59 14:59 Other: Weight 68.946 kg Constitutional: No acute distress, conversant, pleasant Eyes:Anicteric sclerae, moist conjunctiva, no lid-lag, PERRLA, ENMT: Oropharynx clear, no erythema, exudates Neck: Supple, FROM, no masses, or JVD, No carotid bruits, No thyromegaly Lungs: Clear to auscultation, Clear to percussion, Normal respiratory effort, no accessory muscle use Cardiovascular: Heart regular in rate and rhythm, No murmurs, gallops, or rubs, No peripheral edema Abdominal: Soft, tense, distended, slightly, no guarding, rebound or rigidity, Normoactive bowel sounds, No hepatomegaly, No splenomegaly, No palpable mass Skin: Normal temperature, tone, texture, turgor, no induration, No subcutaneous nodules, No rash, lesions, No ulcers Extremities: No digital cyanosis, No clubbing, Pedal pulses intact and symmetrical, Radial pulses intact and symmetrical, No calf tenderness Psychiatric: Alert and oriented to person, place and time, appropriate affect, intact judgement Neuro: Muscles Strength 5/5 in all 4 extremities, Sensation to light touch grossly present throughout, Cranial nerves II-XII grossly intact, no focal sensory deficits Results CBC & Chem 7: 11/09/20 11:54 11/09/20 11:54 Labs: Abnormal Lab Results - Last 24 Hours (Table) 11/09/20 11/09/20 11/09/20 Range/Units 11:54 11:54 11:54 Plt Count 755 H (150-450) k/uL Sodium 130 L (137-145) mmol/L Chloride 95 L (98-107) mmol/L Glucose 103 H (74-99) mg/dL AST 88 H (14-36) U/L ALT 67 H (4-34) U/L Alkaline Phosphatase 211 H (38-126) U/L Albumin 3.3 L (3.5-5.0) g/dL Urine Appearance Cloudy H (Clear) Urine Protein Trace H (Negative) Urine RBC 10 H (0-5) /hpf Urine WBC 6 H (0-5) /hpf Calcium Oxalate Crystal Many H (None) /hpf Urine Mucus Many H (None) /hpf Assessment and Plan Plan: Worsening ascites Likely due to malignant ovarian cancer with metastases Arrange for paracentesis, therapeutic Ovarian cancer Patient will follow-up with [facility] oncology at [facility] next week Recent PE Continue eliquis Constipation Miralax Admitted to observation Anticipated discharge: after paracentesis.
[2020-11-09] MEDS: HYDROmorphone 0.5 MG/0.5 ML SYRINGE IVP PRN (18:29)
[2020-11-09] MEDS: ONDANSETRON 4 MG/2 ML VIAL IVP PRN (19:47)
[2020-11-09] MEDS ORDERED: APIXABAN 5 MG TAB PO SCH (21:00)
[2020-11-10] MEDS: ONDANSETRON 4 MG/2 ML VIAL IVP PRN ×3 (05:09→20:32)
[2020-11-10] MEDS: HYDROmorphone 0.5 MG/0.5 ML SYRINGE IVP PRN ×4 (05:09→20:32)
[2020-11-10 07:37] LABS: HGB 11.3 gm/dL (11.4-16.0); MCH 29.9 pg (25.0-35.0); MCHC 32.3 g/dL (31.0-37.0); MCV 92.8 fL (80.0-100.0); Mean Platelet Volume 6.7; Platelet Count 660 k/uL (150-450); RBC 3.78 m/uL (3.80-5.40); RDW 12.8 % (11.5-15.5); WBC 8.7 k/uL (3.8-10.6)
[2020-11-10 07:52] LABS: Potassium 4.9 mmol/L (3.5-5.1)
[2020-11-10 07:53] LABS: African American GFR (CKD) >90 (>60 ml/min/1.73 sqM); Anion Gap 7 mmol/L; Blood Urea Nitrogen 18 mg/dL (7-17); Calcium 8.9 mg/dL (8.4-10.2); Carbon Dioxide 27 mmol/L (22-30); Chloride 96 mmol/L (98-107); Glucose 99 mg/dL (74-99); Magnesium 2.1 mg/dL (1.6-2.3); Non-African American GFR(CKD) >90 (>60 ml/min/1.73 sqM); Sodium 130 mmol/L (137-145)
[2020-11-10] MEDS: polyethylene glycoL 3350 17 GM POWD.PACK PO SCH (10:23)
--- NOTE | 2020-11-10 17:27 | P.PN ---
Subjective Progress Note Date: 11/10/20 Principal diagnosis: abdominal distension Patient feeling that her abdominal distension is worse. She is feeling nausous but no vomiting. No fevers. Objective - Vital Signs Vital signs: Vital Signs Temp 98.3 F 11/10/20 16:00 Pulse 120 H 11/10/20 16:00 Resp 18 11/10/20 16:00 BP 102/63 11/10/20 16:00 Pulse Ox 95 11/10/20 16:00 Intake & Output 11/09/20 11/10/20 11/10/20 18:59 06:59 18:59 Intake Total 1240 240 480 Balance 1240 240 480 Weight 73 kg 68.1 kg Intake: Intake, IV Titration 1000 Amount Sodium Chloride 0.9% 1, 1000 000 ml @ 999 mls/hr IV . Q1H1M ONE Rx#:[id number] Oral 240 240 480 Other: Voiding Method Toilet Toilet Toilet # Voids 1 1 2 # Bowel Movements 1 - Exam Constitutional: No acute distress, conversant, pleasant Eyes:Anicteric sclerae, moist conjunctiva, no lid-lag, PERRLA, ENMT: Oropharynx clear, no erythema, exudates Neck: Supple, FROM, no masses, or JVD, No carotid bruits, No thyromegaly Lungs: Clear to auscultation, Clear to percussion, Normal respiratory effort, no accessory muscle use Cardiovascular: Heart regular in rate and rhythm, No murmurs, gallops, or rubs, No peripheral edema Abdominal: Soft, tense, distended, slightly, no guarding, rebound or rigidity, Normoactive bowel sounds, No hepatomegaly, No splenomegaly, No palpable mass Skin: Normal temperature, tone, texture, turgor, no induration, No subcutaneous nodules, No rash, lesions, No ulcers Extremities: No digital cyanosis, No clubbing, Pedal pulses intact and symmetrical, Radial pulses intact and symmetrical, No calf tenderness Psychiatric: Alert and oriented to person, place and time, appropriate affect, intact judgement Neuro: Muscles Strength 5/5 in all 4 extremities, Sensation to light touch grossly present throughout, Cranial nerves II-XII grossly intact, no focal sensory deficits - Labs CBC & Chem 7: 11/10/20 07:06 11/10/20 07:06 Labs: Abnormal Lab Results - Last 24 Hours (Table) 11/10/20 11/10/20 Range/Units 07:06 07:06 RBC 3.78 L (3.80-5.40) m/uL Hgb 11.3 L (11.4-16.0) gm/dL Plt Count 660 H (150-450) k/uL Sodium 130 L (137-145) mmol/L Chloride 96 L (98-107) mmol/L BUN 18 H (7-17) mg/dL Assessment and Plan Plan: Worsening ascites Likely due to malignant ovarian cancer with metastases Arrange for paracentesis, therapeutic, to be done tomorrow Ovarian cancer Patient will follow-up with [facility] oncology at [facility] next week D/w Onc service, will transfer to [facility] tomorrow. Recent PE Hold eliquis for paracentesis Constipation Miralax Admitted to observation Anticipated discharge: after paracentesis.
[2020-11-11] MEDS: ONDANSETRON 4 MG/2 ML VIAL IVP PRN ×2 (03:38→15:24)
[2020-11-11] MEDS: HYDROmorphone 0.5 MG/0.5 ML SYRINGE IVP PRN ×2 (03:38→15:24)
--- NOTE | 2020-11-11 07:39 | P.CONS ---
History of Present Illness - Reason for Consult Consult date: 11/09/20 Ovarian Cancer Likely Requesting physician: Silvano Ram - History of Present Illness Ms. Nagel is a very pleasant 54 yo female that was initially seen as inpatient at [facility] on 10/31/20 after presenting for presentation to the hospital with abdominal pain and gross ascites. CT AP revealed ascites and maybe omental caking. US liver hemangioma, concerns for omental caking. Her pr esenting symptoms have improved post para. She states the swelling in her abdomen has been progressive x 1 week, denies any prior symptoms, no associated symptoms to report other the discomfort and bloating. CTA ordered for elevated d-dimer, revealed bilateral pulmonary emboli, she denied any profound symptoms or sudden onset of shortness of breath. Started on heparin drip, no bleeding to report. Patient has no personal history of malignancy, denies unintentional weight loss, no vaginal bleeding, she has noted that her stool has been looser recently, no other constitutional symptoms report ed, pt states that she feels really good overall. Patient has never had a colonoscopy or EGD. Her last mammogram and Pap smear were 5+ years ago. She has a remote history of smoking, no EtOH. Last admission 2 weeks ago she had 3.5Liters fluid ascites removed, with positive pathology. Her Ca 125 was elevated greater than 1200. PLan is to follow-up with [facility] Dr. Enio Espinoza on 11/15/20. She now presents with increased abdominal pain, distention, nausea. Paracentesis scheduled Wednesday. Review of Systems All systems: negative Constitutional: Reports as per HPI Past Medical History Past Medical History: Asthma, Cancer Additional Past Medical History / Comment(s): Bronchitis, chronic low back pain/mild scoliosis, sinus problems/seasonal allergies. ovarian cancer-recently diagnosed in past 3 weeks f/u with Katie and now surgeon in [place] for 11/15/20 History of Any Multi-Drug Resistant Organisms: None Reported Past Surgical History: Hernia Repair Additional Past Surgical History / Comment(s): Umbilical hernia, D&Cs, wisdom teeth extractions. Paracentesis 10/29/20 Additional Past Anesthesia/Blood Transfusion Reaction / Comm: Hypotensive with hernia surgery Past Psychological History: Anxiety Additional Psychological History / Comment(s): Pt resides alone with her dog. She is independent. Smoking Status: Former smoker Past Alcohol Use History: None Reported Additional Past Alcohol Use History / Comment(s): Pt started smoking in 1984, quit in 1988. Smoked less than half a pack a day. Past Drug Use History: None Reported - Past Family History Mother Family Medical History: Coronary Artery Disease (CAD) Additional Family Medical History / Comment(s): Mother is 83 yrs old and healthy Father Family Medical History: Cancer Additional Family Medical History / Comment(s): Father is at 85 yrs. He had colon cancer. Medications and Allergies Home Medications Medication Instructions Recorded Confirmed Type Apixaban [Eliquis Starter Pack See Taper PO BID 11/09/20 11/09/20 History (for VTE)] Allergies Allergy/AdvReac Type Severity Reaction Status Date / Time No Known Allergies Allergy Verified 11/09/20 11:57 Physical Exam Vitals: Vital Signs Temp Pulse Pulse Resp BP BP Pulse Ox 11/09/20 14:28 98.3 F 113 H 18 111/74 98 11/09/20 14:05 97.9 F 102 H 18 110/75 98 11/09/20 14:00 102 H 18 110/75 98 11/09/20 13:00 18 98 11/09/20 12:11 18 111/66 98 11/09/20 11:07 97.9 F 117 H 16 89/65 97 Intake and Output 11/08/20 11/09/20 11/09/20 22:59 06:59 14:59 Intake Total 1000 Balance 1000 Intake: Intake, IV Titration 1000 Amount Sodium Chloride 0.9% 1, 1000 000 ml @ 999 mls/hr IV . Q1H1M ONE Rx#:[id number] Other: # Voids 1 Weight 73 kg - Constitutional General appearance: average body habitus, cooperative, no acute distress - EENT Eyes: anicteric sclerae, EOMI, poor dentition ENT: hearing grossly normal, normal oropharynx - Neck Neck: no lymphadenopathy, normal ROM - Respiratory Respiratory: bilateral: CTA - Cardiovascular Rhythm: regular Heart sounds: normal: S1, S2 Abnormal Heart Sounds: no systolic murmur, no diastolic murmur, no rub, no S3 Gallop, no S4 Gallop, no click, no other leg Peripheral Edema: bilateral: None - Gastrointestinal General gastrointestinal: no absent bowel sounds, no decreased bowel sounds, distended, no hepatomegaly, no hyperactive bowel sounds, normal bowel sounds, no organomegaly, no rigid, no scaphoid, soft, no splenomegaly, no tenderness, no umbilical hernia, no ventral hernia - Integumentary Integumentary: normal - Neurologic Neurologic: CNII-XII intact - Musculoskeletal Musculoskeletal: strength equal bilaterally - Psychiatric Psychiatric: A&O x's 3, appropriate affect, intact judgment & insight - Constitutional General appearance: cooperative, no acute distress - EENT Eyes: EOMI ENT: NA/AT - Neck Neck: normal ROM - Respiratory Respiratory: bilateral: diminished (bilateral lower lobes. ) - Cardiovascular Heart rate: 118 leg Peripheral Edema: bilateral: 1+ - Gastrointestinal General gastrointestinal: distended, tenderness - Integumentary Integumentary: pale - Neurologic Neurologic: CNII-XII intact - Musculoskeletal Musculoskeletal: generalized weakness - Psychiatric Psychiatric: A&O x's 3, appropriate affect, intact judgment & insight Results CBC & Chem 7: 11/10/20 07:06 11/10/20 07:06 Labs: Abnormal Lab Results - Last 24 Hours (Table) 11/09/20 11/09/20 11/09/20 Range/Units 11:54 11:54 11:54 Plt Count 755 H (150-450) k/uL Sodium 130 L (137-145) mmol/L Chloride 95 L (98-107) mmol/L Glucose 103 H (74-99) mg/dL AST 88 H (14-36) U/L ALT 67 H (4-34) U/L Alkaline Phosphatase 211 H (38-126) U/L Albumin 3.3 L (3.5-5.0) g/dL Urine Appearance Cloudy H (Clear) Urine Protein Trace H (Negative) Urine RBC 10 H (0-5) /hpf Urine WBC 6 H (0-5) /hpf Calcium Oxalate Crystal Many H (None) /hpf Urine Mucus Many H (None) /hpf Chest x-ray: report reviewed Assessment and Plan Plan: Assessment and Recommendations: Likely new diagnosis of locally advanced Ovarian Cancer: with increased malignant ascites: - Await paracentesis - She sees [facility] with Dr. Steen on this month although the concern of rapidly progressing symptoms continues, she may require zenaida-adjuvant chemotherapy. Consider transfer today for emergent evaluation of surgical intervention with Dr. Steen. DIscussed with Primary team likely transfer after para on Wednesday.
--- NOTE | 2020-11-11 07:42 | P.PN ---
Subjective Progress Note Date: 11/11/20 Tearful and more uncomfortable today. Objective - Vital Signs Vital signs: Vital Signs Temp 98.1 F 11/11/20 04:00 Pulse 120 H 11/11/20 04:00 Resp 18 11/11/20 04:00 BP 114/65 11/11/20 04:00 Pulse Ox 93 L 11/11/20 04:00 Intake & Output 11/10/20 11/11/20 11/11/20 18:59 06:59 18:59 Intake Total 600 540 Balance 600 540 Weight 68 kg Intake: Oral 600 540 Other: Voiding Method Toilet Toilet # Voids 2 1 - Exam - EENT Eyes: anicteric sclerae, EOMI, poor dentition ENT: hearing grossly normal, normal oropharynx - Neck Neck: no lymphadenopathy, normal ROM - Respiratory Respiratory: bilateral: CTA - Cardiovascular Rhythm: regular Heart sounds: normal: S1, S2 Abnormal Heart Sounds: no systolic murmur, no diastolic murmur, no rub, no S3 Gallop, no S4 Gallop, no click, no other leg Peripheral Edema: bilateral: None - Gastrointestinal General gastrointestinal: Decreased bowel sound, extensive ascites. - Integumentary Integumentary: normal - Neurologic Neurologic: CNII-XII intact - Musculoskeletal Musculoskeletal: strength equal bilaterally - Psychiatric Psychiatric: A&O x's 3, appropriate affect, intact judgment & insight - Constitutional General appearance: cooperative, no acute distress - EENT Eyes: EOMI ENT: NA/AT - Neck Neck: normal ROM - Respiratory Respiratory: bilateral: diminished (bilateral lower lobes. ) - Cardiovascular Heart rate: 118 - Labs CBC & Chem 7: 11/10/20 07:06 11/10/20 07:06 Labs: Abnormal Lab Results - Last 24 Hours (Table) 11/10/20 Range/Units 07:06 Sodium 130 L (137-145) mmol/L Chloride 96 L (98-107) mmol/L BUN 18 H (7-17) mg/dL Assessment and Plan Plan: Assessment and Recommendations: Likely new diagnosis of locally advanced Ovarian Cancer: with increased malignant ascites: - Await paracentesis Wednesday - She sees [facility] with Dr. Steen on this month although the concern of rapidly progressing symptoms continues, she may require zenaida-adjuvant chemotherapy. Consider transfer today for emergent evaluation of surgical intervention with Dr. Steen. DIscussed with Primary team likely transfer after para on Wednesday.
[2020-11-11] MEDS: polyethylene glycoL 3350 17 GM POWD.PACK PO SCH ×2 (08:13→14:10)
--- NOTE | 2020-11-11 09:25 | US ---
EXAMINATION TYPE: US abdomen limited DATE OF EXAM: 11/11/2020 COMPARISON: NONE CLINICAL HISTORY: 54-year-old female assess for fluid pocket please. Ascites TECHNIQUE: Multiple sonographic images of the 4 abdominal quadrants for assessment of ascites. FINDINGS: Pin Cleaner notes: Moderate Free fluid noted IMPRESSION: Moderate ascites fluid in the 4 abdominal quadrants.
--- NOTE | 2020-11-11 12:11 | P.PN ---
Subjective Progress Note Date: 11/11/20 Principal diagnosis: Recent/New Ovarian Cancer with Malignant Ascites Awaiting for paracentesis and transfer to [facility] Objective - Vital Signs Vital signs: Vital Signs Temp 98.1 F 11/11/20 04:00 Pulse 132 H 11/11/20 11:41 Resp 18 11/11/20 11:36 BP 111/72 11/11/20 11:36 Pulse Ox 95 11/11/20 11:36 Intake & Output 11/10/20 11/11/20 11/11/20 18:59 06:59 18:59 Intake Total 600 540 Balance 600 540 Weight 68 kg Intake: Oral 600 540 Other: Voiding Method Toilet Toilet # Voids 2 1 - Exam - EENT Eyes: anicteric sclerae, EOMI, poor dentition ENT: hearing grossly normal, normal oropharynx - Neck Neck: no lymphadenopathy, normal ROM - Respiratory Respiratory: bilateral: CTA - Cardiovascular Rhythm: regular Heart sounds: normal: S1, S2 Abnormal Heart Sounds: no systolic murmur, no diastolic murmur, no rub, no S3 Gallop, no S4 Gallop, no click, no other leg Peripheral Edema: bilateral: None - Gastrointestinal General gastrointestinal: Decreased bowel sound, extensive ascites. - Integumentary Integumentary: normal - Neurologic Neurologic: CNII-XII intact - Musculoskeletal Musculoskeletal: strength equal bilaterally - Psychiatric Psychiatric: A&O x's 3, appropriate affect, intact judgment & insight - Constitutional General appearance: cooperative, no acute distress - EENT Eyes: EOMI ENT: NA/AT - Neck Neck: normal ROM - Respiratory Respiratory: bilateral: diminished (bilateral lower lobes. ) - Cardiovascular Heart rate: 118 - Labs CBC & Chem 7: 11/11/20 15:01 11/11/20 15:01 Assessment and Plan Plan: Assessment and Recommendations: Likely new diagnosis of locally advanced Ovarian Cancer: with increased malignant ascites: - Await paracentesis Wednesday - She sees [facility] with Dr. Steen on this month although the concern of rapidly progressing symptoms continues, she may require zenaida-adjuvant chemotherapy. Consider transfer today for emergent evaluation of surgical intervention with Dr. Steen. Discussed with Primary team likely transfer after para on Wednesday. At this point it is critical patient begin treatment, whether this be zenaida-adjuvant therapy versus debulking (not likely a candidate). She will continue to present for paracentesis and symptoms until this time, this is why it is imperative [facility] see her wesly.
[2020-11-11 15:25] LABS: Basophils # (A) 0.1 k/uL (0-0.2); Basophils % (A) 1 %; Eosinophils # (A) 0.1 k/uL (0-0.7); Eosinophils % (A) 2 %; HGB 11.9 gm/dL (11.4-16.0); Lymphocytes # (A) 1.1 k/uL (1.0-4.8); Lymphocytes % (A) 13 %; MCH 29.2 pg (25.0-35.0); MCHC 31.4 g/dL (31.0-37.0); MCV 92.9 fL (80.0-100.0); Mean Platelet Volume 6.4; Monocytes # (A) 0.6 k/uL (0-1.0); Monocytes % (A) 6 %; Neutrophils # (A) 6.9 k/uL (1.3-7.7); Neutrophils % (A) 78 %; Platelet Count 692 k/uL (150-450); RBC 4.09 m/uL (3.80-5.40); RDW 13.4 % (11.5-15.5); WBC 8.9 k/uL (3.8-10.6)
[2020-11-11 15:34] LABS: ALT 53 U/L (4-34); AST 74 U/L (14-36); African American GFR (CKD) >90 (>60 ml/min/1.73 sqM); Albumin 2.5 g/dL (3.5-5.0); Alkaline Phosphatase 144 U/L (38-126); Anion Gap 6 mmol/L; Blood Urea Nitrogen 23 mg/dL (7-17); Calcium 8.7 mg/dL (8.4-10.2); Carbon Dioxide 30 mmol/L (22-30); Chloride 96 mmol/L (98-107); Glucose 117 mg/dL (74-99); Magnesium 2.1 mg/dL (1.6-2.3); Non-African American GFR(CKD) >90 (>60 ml/min/1.73 sqM); Potassium 4.7 mmol/L (3.5-5.1); Sodium 132 mmol/L (137-145); Total Bilirubin 0.4 mg/dL (0.2-1.3)
--- NOTE | 2020-11-11 15:39 | US ---
EXAMINATION TYPE: US paracentesis abd w/image DATE OF EXAM: 11/11/2020 COMPARISON: NONE HISTORY: Ascites. PROCEDURE: Maximal barrier technique was utilized. The skin overlying a suitable pocket of fluid was localized with ultrasound and the overlying skin was prepped and draped. Ultrasound was utilized with sterile technique. Lidocaine was used for local anesthesia and a skin salome made with a scalpel. Catheter was advanced under direct ultrasound guidance into a suitable pocket of fluid and approximately 8.5 liter s of serous fluid were removed. Catheter was withdrawn and hemostasis achieved. There is no immedia te complication; the patient is discharged in stable condition. IMPRESSION: STATUS POST ULTRASOUND GUIDED PARACENTESIS FOR PALLIATION OF ASCITES. THIS PROCEDURE WA S PERFORMED BY THE UNDERSIGNED.
--- NOTE | 2020-11-11 17:07 | P.PN ---
Subjective Progress Note Date: 11/11/20 Principal diagnosis: abdominal distension Seen after the paracentesis was done. 8 liters taken out. She is currently feeling much better. No nausea. No pain. Objective - Vital Signs Vital signs: Vital Signs Temp 98.0 F 11/11/20 16:00 Pulse 136 H 11/11/20 16:00 Resp 16 11/11/20 16:00 BP 101/70 11/11/20 16:00 Pulse Ox 99 11/11/20 16:00 Intake & Output 11/10/20 11/11/20 11/11/20 18:59 06:59 18:59 Intake Total 600 540 600 Output Total 8500 Balance 600 540 -7900 Weight 68 kg 68 kg Intake: Oral 600 540 600 Output: Other 8500 Other: Voiding Method Toilet Toilet Toilet # Voids 2 1 1 - Exam Constitutional: No acute distress, conversant, pleasant Eyes:Anicteric sclerae, moist conjunctiva, no lid-lag, PERRLA, ENMT: Oropharynx clear, no erythema, exudates Neck: Supple, FROM, no masses, or JVD, No carotid bruits, No thyromegaly Lungs: Clear to auscultation, Clear to percussion, Normal respiratory effort, no accessory muscle use Cardiovascular: Heart regular in rate and rhythm, No murmurs, gallops, or rubs, No peripheral edema Abdominal: Soft, tense, distended, slightly, no guarding, rebound or rigidity, Normoactive bowel sounds, No hepatomegaly, No splenomegaly, No palpable mass Skin: Normal temperature, tone, texture, turgor, no induration, No subcutaneous nodules, No rash, lesions, No ulcers Extremities: No digital cyanosis, No clubbing, Pedal pulses intact and symmetrical, Radial pulses intact and symmetrical, No calf tenderness Psychiatric: Alert and oriented to person, place and time, appropriate affect, intact judgement Neuro: Muscles Strength 5/5 in all 4 extremities, Sensation to light touch grossly present throughout, Cranial nerves II-XII grossly intact, no focal senso ry deficits - Labs CBC & Chem 7: 11/11/20 15:01 11/11/20 15:01 Labs: Abnormal Lab Results - Last 24 Hours (Table) 11/11/20 11/11/20 Range/Units 15: 15:01 Plt Count 692 H (150-450) k/uL Sodium 132 L (137-145) mmol/L Chloride 96 L (98-107) mmol/L BUN 23 H (7-17) mg/dL Glucose 117 H (74-99) mg/dL AST 74 H (14-36) U/L ALT 53 H (4-34) U/L Alkaline Phosphatase 144 H (38-126) U/L Total Protein 5.0 L (6.3-8.2) g/dL Albumin 2.5 L (3.5-5.0) g/dL Assessment and Plan Plan: Worsening ascites Likely due to malignant ovarian cancer with metastases S/p large volume paracentesis, will give albumin. Ovarian cancer D/w Onc service, and d/w Dr Steen the [employer] oncologist with whom she had an outpatient appointment. Currently [facility] working on patient's transfer, pending insurance info. Recent PE resume eliquis today, was held for paracentesis Constipation Miralax Anticipated discharge: once accepted by [facility].
[2020-11-11] MEDS: ALBUMIN HUMAN 25% 50 ML in EMPTY BAG 1 BAG IVPB SCH ×2 (18:20→20:13)
[2020-11-12] MEDS: polyethylene glycoL 3350 17 GM POWD.PACK PO SCH (09:03)
[2020-11-12] MEDS: ENOXAPARIN 60 MG/0.6 ML SYRINGE SQ SCH ×2 (10:51→20:03)
[2020-11-12] MEDS ORDERED: FUROSEMIDE 10 MG/ML 4 ML VIAL IV SCH (15:00)
--- NOTE | 2020-11-12 15:01 | P.PN ---
Subjective Progress Note Date: 11/12/20 (delayed charting seen at 0905) Principal diagnosis: abdominal pain and distension Patient is a 54-year-old female with recently diagnosed ovarian cancer, chronic low back pain, seasonal ALLERGIES, and asthma who presented to the ER secondary to increased abdominal pain and distention. She was initially admitted here from 10/28 to 10/31 where she was discovered to have ovarian cancer and a pulmonary embolism. She has been taking Eliquis at home. On arrival to the ER this time she was found to have significant abdominal ascites secondary to ovarian cancer with metastasis. She is admitted for further management. Her Eliquis was held. 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 She is an appointment with Dr. Steen on 11/15. She underwent paracentesis with removal of 8.5 L on 11/11. Patient states almost immediately recurred. [facility] [facility] the patient, currently awaiting financial clearance. Patient seen seen and examined at bedside. She is anxious to get therapy started for her ovarian cancer. She reports that she must immediately had recurrence of her abdominal ascites after her Yesterday. She is having some pain in her lower abdomen, but it is not as significant as when she came in. She denies any nausea or vomiting. We discussed putting her on Lovenox today she should need recurrent paracentesis and she is in agreement. We also discussed that we are currently awaiting acceptance from [facility]. General: Ill appearing, no distress, appears at stated age, temporal and buccal mucosal wasting Derm: warm, dry Head: atraumatic, normocephalic, symmetric Eyes: EOMI, no lid lag, anicteric sclera Mouth: no lip lesion, mucus membranes moist Cardiovascular: S1S2 reg, no murmur, positive posterior tibial pulse bilateral, Lungs: Faint crackles right base, no rhonchi, no rales , no accessory muscle use Abdominal: soft, distended, nontender to palpation, no guarding, no appreciable organomegaly Ext: no gross muscle atrophy, trace edema, no contractures Neuro: CN II-XI grossly intact, no focal neuro deficits Psych: Alert, oriented, appropriate affect Malignant ascities, likely ovarain CA vs primary peritoneal carcinoma on recent path, CA 125> 12,000 Recent Pulmonary embolism Transaminits, mild- liver normal on CT oct 2020, Hyponatmeia, likely due to ascities Thromboytosis, reactive Constipation Transition for eliquis to Lovenox incase repeated para is needed, pain control, [facility]cology recs. Possible need for repeat Para in AM, follow CBC and BMP, start lasix for ascitic management DVT prophylaxis:Lovenox Discussed with: Patient, CM, Dr. Wilson Anticipated discharge: today if accepted to [facility] Anticipated discharge place: [facility] vs other A total of 45 minutes was spent on the care of this complex patient more than 50% of the time was spent in counseling and care coordination. Objective - Vital Signs Vital signs: Vital Signs Temp 98.0 F 11/12/20 12:00 Pulse 129 H 11/12/20 13:41 Resp 14 11/12/20 13:41 BP 91/59 11/12/20 12:00 Pulse Ox 99 11/12/20 12:00 Intake & Output 11/11/20 11/12/20 11/12/20 18:59 06:59 18:59 Intake Total 600 780 360 Output Total 8500 500 Balance -7900 780 -140 Weight 68 kg 60.2 kg Intake: Oral 600 780 360 Output: Urine 500 Other 8500 Other: Voiding Method Toilet Toilet Toilet # Voids 1 1 - Labs CBC & Chem 7: 11/11/20 15:01 11/11/20 15:01 Labs: Abnormal Lab Results - Last 24 Hours (Table) 11/11/20 11/11/20 Range/Units 15:01 15:01 Plt Count 692 H (150-450) k/uL Sodium 132 L (137-145) mmol/L Chloride 96 L (98-107) mmol/L BUN 23 H (7-17) mg/dL Glucose 117 H (74-99) mg/dL AST 74 H (14-36) U/L ALT 53 H (4-34) U/L Alkaline Phosphatase 144 H (38-126) U/L Total Protein 5.0 L (6.3-8.2) g/dL Albumin 2.5 L (3.5-5.0) g/dL
[2020-11-12] MEDS ORDERED: ARTIFICIAL TEARS-HYPROMELLOSE DROPS 15 ML BTL BOTH EYES PRN (17:20)
[2020-11-12] MEDS: ALPRAZolam 0.25 MG TAB PO PRN (21:50)
--- NOTE | 2020-11-12 22:44 | P.PN ---
Subjective Progress Note Date: 11/12/20 Principal diagnosis: Recent/New Ovarian Cancer with Malignant Ascites Transfer to [facility] on hold secondary to insurance, at this time the need is to initiate zenaida-adjuvant therapy. Dr. Wilson did discuss with patient in detail and will plan for telephone consult with Dr. Steen if possible to include his input on need of zenaida-adjuvant therapy. She also is feeling better after large amount of fluid removed paracentesis will have standing order at discharge Objective - Vital Signs Vital signs: Vital Signs Temp 98.6 F 11/12/20 19:48 Pulse 120 H 11/12/20 20:15 Resp 18 11/12/20 20:15 BP 98/55 11/12/20 19:48 Pulse Ox 94 L 11/12/20 19:48 Intake & Output 11/12/20 11/12/20 11/13/20 06:59 18:59 06:59 Intake Total 780 1580 180 Output Total 900 Balance 780 680 180 Weight 60.2 kg Intake: Oral 780 1580 180 Output: Urine 900 Other: Voiding Method Toilet Toilet Toilet # Voids 1 - Exam - EENT Eyes: anicteric sclerae, EOMI, poor dentition ENT: hearing grossly normal, normal oropharynx - Neck Neck: no lymphadenopathy, normal ROM - Respiratory Respiratory: bilateral: CTA - Cardiovascular Rhythm: regular Heart sounds: normal: S1, S2 Abnormal Heart Sounds: no systolic murmur, no diastolic murmur, no rub, no S3 Gallop, no S4 Gallop, no click, no other leg Peripheral Edema: bilateral: None - Gastrointestinal General gastrointestinal: Decreased bowel sound, extensive ascites. - Integumentary Integumentary: normal - Neurologic Neurologic: CNII-XII intact - Musculoskeletal Musculoskeletal: strength equal bilaterally - Psychiatric Psychiatric: A&O x's 3, appropriate affect, intact judgment & insight - Constitutional General appearance: cooperative, no acute distress - EENT Eyes: EOMI ENT: NA/AT - Neck Neck: normal ROM - Respiratory Respiratory: bilateral: diminished (bilateral lower lobes. ) - Cardiovascular Heart rate: 118 - Labs CBC & Chem 7: 11/11/20 15:01 11/11/20 15:01 Assessment and Plan Plan: Assessment and Recommendations: Likely new diagnosis of locally advanced Ovarian Cancer: with increased malignant ascites: - Await paracentesis Matthew - She sees [facility] with Dr. Steen on this month although the concern of rapidly progressing symptoms continues, she may require zenaida-adjuvant chemotherapy. Unable to transfer gynonc related to insurance therefore will plan for telephone call and start of zenaida adj Standing order placed for therapeutic paracentesis weekly Physician attest: I have completed the full history and physical and agree with above dictation.
[2020-11-13 07:35] LABS: HCT 39.7 % (34.0-46.0); HGB 13.1 gm/dL (11.4-16.0); MCH 30.3 pg (25.0-35.0); MCV 91.8 fL (80.0-100.0); Mean Platelet Volume 7.6; Platelet Count 613 k/uL (150-450); RBC 4.33 m/uL (3.80-5.40); RDW 13.2 % (11.5-15.5); WBC 8.9 k/uL (3.8-10.6)
[2020-11-13] MEDS: ENOXAPARIN 60 MG/0.6 ML SYRINGE SQ SCH ×2 (09:12→21:24)
[2020-11-13] MEDS: polyethylene glycoL 3350 17 GM POWD.PACK PO SCH (09:13)
--- NOTE | 2020-11-13 13:12 | P.PN ---
Subjective Progress Note Date: 11/14/20 Principal diagnosis: Recent/New Ovarian Cancer with Malignant Ascites BP continue to trend on low end also sinus tach. Plan port tomorrow and para and hopefully inpatient chemo on Wednesday. Objective - Vital Signs Vital signs: Vital Signs Temp 98.5 F 11/13/20 08:00 Pulse 129 H 11/13/20 08:00 Resp 16 11/13/20 08:00 BP 90/59 11/13/20 08:00 Pulse Ox 98 11/13/20 08:00 Intake & Output 11/12/20 11/13/20 11/13/20 18:59 06:59 18:59 Intake Total 1580 816 240 Output Total 900 Balance 680 816 240 Weight 61.6 kg Intake: Oral 1580 816 240 Output: Urine 900 Other: Voiding Method Toilet Toilet # Voids 1 - Exam - EENT Eyes: anicteric sclerae, EOMI, poor dentition ENT: hearing grossly normal, normal oropharynx - Neck Neck: no lymphadenopathy, normal ROM - Respiratory Respiratory: bilateral: CTA - Cardiovascular Rhythm: regular Heart sounds: normal: S1, S2 Abnormal Heart Sounds: no systolic murmur, no diastolic murmur, no rub, no S3 Gallop, no S4 Gallop, no click, no other leg Peripheral Edema: bilateral: None - Gastrointestinal General gastrointestinal: Decreased bowel sound, extensive ascites. - Integumentary Integumentary: normal - Neurologic Neurologic: CNII-XII intact - Musculoskeletal Musculoskeletal: strength equal bilaterally - Psychiatric Psychiatric: A&O x's 3, appropriate affect, intact judgment & insight - Constitutional General appearance: cooperative, no acute distress - EENT Eyes: EOMI ENT: NA/AT - Neck Neck: normal ROM - Respiratory Respiratory: bilateral: diminished (bilateral lower lobes. ) - Cardiovascular Heart rate: 118 - Labs CBC & Chem 7: 11/14/20 05:59 11/14/20 05:59 Labs: Abnormal Lab Results - Last 24 Hours (Table) 11/13/20 Range/Units 06:39 Plt Count 613 H (150-450) k/uL Assessment and Plan Plan: Assessment and Recommendations: Likely new diagnosis of locally advanced Ovarian Cancer: with increased malignant ascites: - Await paracentesis Wednesday - She sees [facility] with Dr. Steen on this month although the concern of rapidly progressing symptoms continues, she may require zenaida-adjuvant chemotherapy. Consider transfer today for emergent evaluation of surgical intervention with Dr. Steen. Mony in am Paracentesis in am, albumin the morning of chemo (wednesday) to help prevent hypotensive event after chemo Discussed with primary team
[2020-11-13 13:38] LABS: Partial Thromboplastin Time 24.1 sec (22.0-30.0); Prothrombin Time 10.7 sec (9.0-12.0)
[2020-11-13 13:51] LABS: ALT 51 U/L (4-34); AST 72 U/L (14-36); African American GFR (CKD) >90 (>60 ml/min/1.73 sqM); Albumin 2.6 g/dL (3.5-5.0); Alkaline Phosphatase 170 U/L (38-126); Anion Gap 6 mmol/L; Blood Urea Nitrogen 20 mg/dL (7-17); Calcium 8.6 mg/dL (8.4-10.2); Carbon Dioxide 30 mmol/L (22-30); Chloride 94 mmol/L (98-107); Glucose 108 mg/dL (74-99); Magnesium 2.1 mg/dL (1.6-2.3); Non-African American GFR(CKD) >90 (>60 ml/min/1.73 sqM); Potassium 4.4 mmol/L (3.5-5.1); Sodium 130 mmol/L (137-145); Total Bilirubin 0.3 mg/dL (0.2-1.3)
--- NOTE | 2020-11-13 16:44 | P.PN ---
Subjective Progress Note Date: 11/13/20 (delayed charting seen at 0830) Principal diagnosis: abdominal pain and distension Patient is a 54-year-old female with recently diagnosed ovarian cancer, chronic low back pain, seasonal ALLERGIES, and asthma who presented to the ER secondary to increased abdominal pain and distention. She was initially admitted here from 10/28 to 10/31 where she was discovered to have ovarian cancer and a pulmonary embolism. She has been taking Eliquis at home. On arrival to the ER this time she was found to have significant abdominal ascites secondary to ovarian cancer with metastasis. She is admitted for further management. Her Eliquis was held. 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 She is an appointment with Dr. Steen on 11/15. She underwent paracentesis with removal of 8.5 L on 11/11. Patient states almost immediately recurred. [facility] [facility] the patient, currently awaiting financial clearance. Plan is for Port in AM. Heart rate has been varying 130 to 150 per nursing. Patient seen seen and examined at bedside. Xanax has greatly helped with her anxiety. She is having some distention but is not yet uncomfortable or shortness of breath. She denies any chest pain or shortness of breath at this point in time. Abdominal pain is manageable. General: Ill appearing, no distress, appears at stated age, temporal and buccal mucosal wasting Derm: warm, dry Head: atraumatic, normocephalic, symmetric Eyes: EOMI, no lid lag, anicteric sclera Mouth: no lip lesion, mucus membranes moist Cardiovascular: S1S2 reg, no murmur, positive posterior tibial pulse bilateral, Lungs: Faint crackles right base, no rhonchi, no rales , no accessory muscle use Abdominal: soft, distended, nontender to palpation, no guarding, no appreciable organomegaly Ext: no gross muscle atrophy, trace edema, no contractures Neuro: CN II-XI grossly intact, no focal neuro deficits Psych: Alert, oriented, appropriate affect Malignant ascities, likely ovarain CA vs primary peritoneal carcinoma on recent path, CA 125> 12,000 -Discussed with oncology -Plan is for port in a.m. -Still awaiting to hear back from [facility] -Likely will need neoadjuvant chemo per oncology. Recent Pulmonary embolism -Has been transitioned from Eliquis to Lovenox to a if she needs a repeat paracentesis and additional procedures - hold does this evening in anticipation for port Tachycardia - Sinus tachycardia suspect secondary to recent pulmonary embolism in conjunction with ascites, and decreased overall conditioning -Check echocardiogram -Telemetry -Not a candidate for beta mario or calcium channel mario at this point in time secondary to hypotension Transaminits, mild- liver normal on CT oct 2020 - repeat in AM Hyponatmeia, likely due to ascities and fluid overload state - follow NA, stable - limit IVF Thromboytosis, reactive - follow CBC Constipation -mirlax DVT prophylaxis:Lovenox Discussed with: Patient, CM, Diamond larsen NP Anticipated discharge: [facility] Anticipated discharge place: [facility] vs other A total of 25 minutes was spent on the care of this complex patient more than 50% of the time was spent in counseling and care coordination. Objective - Vital Signs Vital signs: Vital Signs Temp 97.4 F L 11/13/20 12:00 Pulse 131 H 11/13/20 12:00 Resp 16 11/13/20 12:00 BP 103/69 11/13/20 12:00 Pulse Ox 95 11/13/20 12:00 Intake & Output 11/12/20 11/13/20 11/13/20 18:59 06:59 18:59 Intake Total 1580 816 240 Output Total 900 Balance 680 816 240 Weight 61.6 kg Intake: Oral 1580 816 240 Output: Urine 900 Other: Voiding Method Toilet Toilet Toilet # Voids 1 3 - Labs CBC & Chem 7: 11/13/20 06:39 11/13/20 13:17 Labs: Abnormal Lab Results - Last 24 Hours (Table) 11/13/20 11/13/20 Range/Units 06:39 13:17 Plt Count 613 H (150-450) k/uL Sodium 130 L (137-145) mmol/L Chloride 94 L (98-107) mmol/L BUN 20 H (7-17) mg/dL Glucose 108 H (74-99) mg/dL AST 72 H (14-36) U/L ALT 51 H (4-34) U/L Alkaline Phosphatase 170 H (38-126) U/L Total Protein 5.0 L (6.3-8.2) g/dL Albumin 2.6 L (3.5-5.0) g/dL
[2020-11-13] MEDS: ALPRAZolam 0.25 MG TAB PO PRN (21:25)
[2020-11-14 06:09] LABS: Basophils # (A) 0.1 k/uL (0-0.2); Basophils % (A) 1 %; Eosinophils # (A) 0.3 k/uL (0-0.7); Eosinophils % (A) 3 %; HCT 40.5 % (34.0-46.0); HGB 12.7 gm/dL (11.4-16.0); Lymphocytes # (A) 1.8 k/uL (1.0-4.8); Lymphocytes % (A) 20 %; MCH 28.9 pg (25.0-35.0); MCHC 31.4 g/dL (31.0-37.0); MCV 92.2 fL (80.0-100.0); Mean Platelet Volume 6.3; Monocytes # (A) 0.7 k/uL (0-1.0); Monocytes % (A) 7 %; Neutrophils % (A) 68 %; Platelet Count 682 k/uL (150-450); RBC 4.39 m/uL (3.80-5.40); RDW 13.5 % (11.5-15.5); WBC 8.9 k/uL (3.8-10.6)
[2020-11-14 06:32] LABS: ALT 51 U/L (4-34); AST 69 U/L (14-36); African American GFR (CKD) >90 (>60 ml/min/1.73 sqM); Albumin 2.6 g/dL (3.5-5.0); Alkaline Phosphatase 184 U/L (38-126); Anion Gap 5 mmol/L; Blood Urea Nitrogen 21 mg/dL (7-17); Calcium 8.6 mg/dL (8.4-10.2); Carbon Dioxide 30 mmol/L (22-30); Chloride 94 mmol/L (98-107); Glucose 99 mg/dL (74-99); Non-African American GFR(CKD) >90 (>60 ml/min/1.73 sqM); Potassium 4.7 mmol/L (3.5-5.1); Sodium 129 mmol/L (137-145); Total Bilirubin 0.5 mg/dL (0.2-1.3)
[2020-11-14] MEDS ORDERED: LIDOCAINE 1% (10MG/ML) FOR IV START INTRADERMA PRN (07:00)
[2020-11-14] MEDS ORDERED: DEXAMETHASONE SOD PHOSPHATE 4 MG/ML 1 ML VIAL IV ONE (07:00)
[2020-11-14] MEDS ORDERED: HYDROmorphone 0.5 MG/0.5 ML SYRINGE IVP PRN (07:00)
--- NOTE | 2020-11-14 08:13 | P.GSCN ---
History of Present Illness Consult date: 11/14/20 History of present illness: CHIEF COMPLAINT: Ovarian cancer HISTORY OF PRESENT ILLNESS: This is a 54-year-old female who was recently diagnosed with ovarian cancer in October 2020. She is recently had a pulmonary embolism and malignant ascites. She's required two paracentesis. Surgical consult requested for port placement. Patient is lying in bed comfortably. R eports that her pain is controlled. She does occasionally have nausea. She has been tachycardic. And per patient appears they're planning to start chemotherapy tomorrow. PAST MEDICAL HISTORY: See list. PAST SURGICAL HISTORY: See list. MEDICATIONS: See list. ALLERGIES: See list. SOCIAL HISTORY: No illicit drug use. REVIEW OF SYSTEMS: CONSTITUTIONAL: Denies fever or chills. HEENT: Denies blurred vision, vision changes, or eye pain. Denies hemoptysis CARDIOVASCULAR: Denies chest pain or pressure. RESPIRATORY: No shortness of breath. GASTROINTESTINAL: See HPI for pertinent findings HEMATOLOGIC: Denies bleeding disorders. GENITOURINARY: Denies any blood in urine or increased urinary frequency. SKIN: Denies pruitis. Denies rash. PHYSICAL EXAM: VITAL SIGNS: Reviewed GENERAL: Well-developed in no acute distress. HEENT: No sclera icterus. Extraocular movements grossly intact. Moist buccal mucosa. Head is atraumatic, normocephalic. No nasal drainage. ABDOMEN: Soft. Distended. ascites present NEUROLOGIC: Alert and oriented. Cranial nerves II through XII grossly intact. LABORATORY DATA: WBC 8.9 Hgb 12.7 platelets 632 sodium 129 potassium 4.7 BUN 21 creatinine 0.53 AST 69 ALT 51 alk phos 184 IMAGING: ASSESSMENT: 1. Ovarian cancer 2. Malignant ascites PLAN: -Patient is scheduled for Mediport placement today with Dr. Sheridan -Keep patient nothing by mouth for procedure -Continue supportive care Thank you for this consultation Physician Physical Security Specialist note has been reviewed by physician. Signing provider agrees with the documented findings, assessment, and plan of care. Past Medical History Past Medical History: Asthma, Cancer Additional Past Medical History / Comment(s): Bronchitis, chronic low back pain/mild scoliosis, sinus problems/seasonal allergies. ovarian cancer-recently diagnosed in past 3 weeks f/u with Katie and now surgeon in [place] for 11/15/20 History of Any Multi-Drug Resistant Organisms: None Reported Past Surgical History: Hernia Repair Additional Past Surgical History / Comment(s): Umbilical hernia, D&Cs, wisdom teeth extractions. Paracentesis 10/29/20 Additional Past Anesthesia/Blood Transfusion Reaction / Comm: Hypotensive with hernia surgery Past Psychological History: Anxiety Additional Psychological History / Comment(s): Pt resides alone with her dog. She is independent. Smoking Status: Former smoker Past Alcohol Use History: None Reported Additional Past Alcohol Use History / Comment(s): Pt started smoking in 1984, quit in 1988. Smoked less than half a pack a day. Past Drug Use History: None Reported - Past Family History Mother Family Medical History: Coronary Artery Disease (CAD) Additional Family Medical History / Comment(s): Mother is 83 yrs old and healthy Father Family Medical History: Cancer Additional Family Medical History / Comment(s): Father is at 85 yrs. He had colon cancer. Medications and Allergies Home Medications Medication Instructions Recorded Confirmed Type Apixaban [Eliquis Starter Pack See Taper PO BID 11/09/20 11/09/20 History (for VTE)] Allergies Allergy/AdvReac Type Severity Reaction Status Date / Time No Known Allergies Allergy Verified 11/09/20 11:57 Surgical - Exam Vital Signs Temp Pulse Resp BP Pulse Ox 97.9 F 117 H 16 89/65 97 11/09/20 11:07 11/09/20 11:07 11/09/20 11:07 11/09/20 11:07 11/09/20 11:07 Results - Labs 11/14/20 05:59 11/14/20 05:59 Abnormal Lab Results - Last 24 Hours (Table) 11/13/20 11/14/20 11/14/20 Range/Units 13:17 05:59 05:59 Plt Count 682 H (150-450) k/uL Sodium 130 L 129 L (137-145) mmol/L Chloride 94 L 94 L (98-107) mmol/L BUN 20 H 21 H (7-17) mg/dL Glucose 108 H (74-99) mg/dL AST 72 H 69 H (14-36) U/L ALT 51 H 51 H (4-34) U/L Alkaline Phosphatase 170 H 184 H (38-126) U/L Total Protein 5.0 L 5.0 L (6.3-8.2) g/dL Albumin 2.6 L 2.6 L (3.5-5.0) g/dL Diabetes panel 11/13/20 11/14/20 Range/Units 13:17 05:59 Sodium 130 L 129 L (137-145) mmol/L Potassium 4.4 4.7 (3.5-5.1) mmol/L Chloride 94 L 94 L (98-107) mmol/L Carbon Dioxide 30 30 (22-30) mmol/L BUN 20 H 21 H (7-17) mg/dL Creatinine 0.57 0.53 (0.52-1.04) mg/dL Glucose 108 H 99 (74-99) mg/dL Calcium 8.6 8.6 (8.4-10.2) mg/dL AST 72 H 69 H (14-36) U/L ALT 51 H 51 H (4-34) U/L Alkaline Phosphatase 170 H 184 H (38-126) U/L Total Protein 5.0 L 5.0 L (6.3-8.2) g/dL Albumin 2.6 L 2.6 L (3.5-5.0) g/dL Calcium panel 11/13/20 11/14/20 Range/Units 13:17 05:59 Calcium 8.6 8.6 (8.4-10.2) mg/dL Albumin 2.6 L 2.6 L (3.5-5.0) g/dL Pituitary panel 11/13/20 11/14/20 Range/Units 13:17 05:59 Sodium 130 L 129 L (137-145) mmol/L Potassium 4.4 4.7 (3.5-5.1) mmol/L Chloride 94 L 94 L (98-107) mmol/L Carbon Dioxide 30 30 (22-30) mmol/L BUN 20 H 21 H (7-17) mg/dL Creatinine 0.57 0.53 (0.52-1.04) mg/dL Glucose 108 H 99 (74-99) mg/dL Calcium 8.6 8.6 (8.4-10.2) mg/dL Adrenal panel 11/13/20 11/14/20 Range/Units 13:17 05:59 Sodium 130 L 129 L (137-145) mmol/L Potassium 4.4 4.7 (3.5-5.1) mmol/L Chloride 94 L 94 L (98-107) mmol/L Carbon Dioxide 30 30 (22-30) mmol/L BUN 20 H 21 H (7-17) mg/dL Creatinine 0.57 0.53 (0.52-1.04) mg/dL Glucose 108 H 99 (74-99) mg/dL Calcium 8.6 8.6 (8.4-10.2) mg/dL Total Bilirubin 0.3 0.5 (0.2-1.3) mg/dL AST 72 H 69 H (14-36) U/L ALT 51 H 51 H (4-34) U/L Alkaline Phosphatase 170 H 184 H (38-126) U/L Total Protein 5.0 L 5.0 L (6.3-8.2) g/dL Albumin 2.6 L 2.6 L (3.5-5.0) g/dL
[2020-11-14 08:49] VITALS: BMI 22.4
[2020-11-14] MEDS ORDERED: LACTATED RINGERS 1,000 ML IV ONE (09:18)
[2020-11-14] MEDS: polyethylene glycoL 3350 17 GM POWD.PACK PO SCH (09:22)
[2020-11-14] MEDS: ONDANSETRON 4 MG/2 ML VIAL IVP PRN ×2 (09:44→18:31)
[2020-11-14] MEDS ORDERED: BUPIVACAINE (PF) 0.25% 30 ML VIAL SQ ONE ×3 (09:46→10:50)
--- NOTE | 2020-11-14 09:52 | P.PN ---
Subjective Progress Note Date: 11/14/20 Principal diagnosis: Recent/New Ovarian Cancer with Malignant Ascites Patient had a busy day today, overall feeling good. She has her port placed and paracentesis with 2.9Liters removed. Her BP is remaining at a safe asymptomatic baseline of 90s systolic. She did have an echocardiogram which showed EF less than 20%, no personal history of heart disease known. sister diagnosed with cardiomyopathy Objective - Vital Signs Vital signs: Vital Signs Temp 98.5 F 11/14/20 09:24 Pulse 129 H 11/14/20 09:24 Resp 18 11/14/20 09:24 BP 97/63 11/14/20 09:24 Pulse Ox 96 11/14/20 09:24 Intake & Output 11/13/20 11/14/20 11/14/20 18:59 06:59 18:59 Intake Total 240 240 Balance 240 240 Weight 61.3 kg 61.3 kg Intake: Oral 240 240 Other: Voiding Method Toilet Toilet # Voids 3 # Bowel Movements 1 - Exam - EENT Eyes: anicteric sclerae, EOMI, poor dentition ENT: hearing grossly normal, normal oropharynx - Neck Neck: no lymphadenopathy, normal ROM - Respiratory Respiratory: bilateral: CTA - Cardiovascular Rhythm: regular Heart sounds: normal: S1, S2 Abnormal Heart Sounds: no systolic murmur, no diastolic murmur, no rub, no S3 Gallop, no S4 Gallop, no click, no other leg Peripheral Edema: bilateral: None - Gastrointestinal General gastrointestinal: Decreased bowel sound, extensive ascites. - Integumentary Integumentary: normal - Neurologic Neurologic: CNII-XII intact - Musculoskeletal Musculoskeletal: strength equal bilaterally - Psychiatric Psychiatric: A&O x's 3, appropriate affect, intact judgment & insight - Constitutional General appearance: cooperative, no acute distress - EENT Eyes: EOMI ENT: NA/AT - Neck Neck: normal ROM - Respiratory Respiratory: bilateral: diminished (bilateral lower lobes. ) - Cardiovascular Heart rate: 118 - Labs CBC & Chem 7: 11/14/20 05:59 11/14/20 05:59 Labs: Abnormal Lab Results - Last 24 Hours (Table) 11/13/20 11/14/20 11/14/20 Range/Units 13:17 05:59 05:59 Plt Count 682 H (150-450) k/uL Sodium 130 L 129 L (137-145) mmol/L Chloride 94 L 94 L (98-107) mmol/L BUN 20 H 21 H (7-17) mg/dL Glucose 108 H (74-99) mg/dL AST 72 H 69 H (14-36) U/L ALT 51 H 51 H (4-34) U/L Alkaline Phosphatase 170 H 184 H (38-126) U/L Total Protein 5.0 L 5.0 L (6.3-8.2) g/dL Albumin 2.6 L 2.6 L (3.5-5.0) g/dL Assessment and Plan Plan: Assessment and Recommendations: Likely new diagnosis of locally advanced Ovarian Cancer: with increased malignant ascites: - Discussion with Dr. Steen yesterday regarding recommendation of zenaida-adjuvant chemotherapy to begin inpatient on Wednesday11/15/20. Status POst Mediport Status POst therapeutic paracentesis 2.9L - Today 11/14/20 Echocardiogram with EF 20%, discussed with primary team PLan to initiate cycle one of chemotherapy in am.
[2020-11-14] MEDS ORDERED: MIDAZOLAM 2 MG/2 ML VIAL ONE (10:23)
[2020-11-14] MEDS ORDERED: LIDOCAINE 1% INJ 10MG/ML (20 ML MDV) ONE (10:23)
[2020-11-14] MEDS ORDERED: PROPOFOL 10 MG/ML 20 ML VIAL IV ONE (10:23)
[2020-11-14] MEDS ORDERED: fentaNYL (PF) 50 MCG/ML 2 ML AMP ONE (10:23)
--- NOTE | 2020-11-14 10:36 | ECHOF ---
Referral Reason:tachycardia MEASUREMENTS -------- HEIGHT: 165.1 cm WEIGHT: 61.2 kg BP: 88/59 RVIDd: 3.3 cm (< 3.3) IVSd: 0.7 cm (0.6 - 1.1) LVIDd: 5.0 cm (3.9 - 5.3) LVPWd: 1.0 cm (0.6 - 1.1) IVSs: 0.9 cm LVIDs: 4.1 cm LVPWs: 1.2 cm LA Diam: 3.6 cm (2.7 - 3.8) Ao Diam: 3.1 cm (2.0 - 3.7) AV Cusp: 2.6 cm (1.5 - 2.6) MV EXCURSION: 26.421 mm (> 18.000) MV EF SLOPE: 137 mm/s (70 - 150) EPSS: 1.7 cm MV E Adiel: 1.05 m/s MV DecT: 154 ms MV A Adiel: 0.45 m/s MV E/A Ratio: 2.31 RAP: 5.00 mmHg RVSP: 19.39 mmHg FINDINGS -------- Sinus rhythm. This was a technically good study. The left ventricular size is normal. Left ventricular wall thickness is normal. There is severe g lobal hypokinesis of LV . Overall left ventricular systolic function is severely impaired with, an EF < 20%. The right ventricle is normal in size. The left atrial size is normal. The right atrial size is normal. There is mild aortic valve sclerosis. There is no evidence of aortic regurgitation. Mild mitral regurgitation is present. Mild tricuspid regurgitation present. Right ventricular systolic pressure is normal at < 35 mmHg. There is no pulmonic regurgitation present. The aortic root size is normal. There is no pericardial effusion. Large Pleural Effusion. CONCLUSIONS -------- 1. The left ventricular size is normal. 2. Left ventricular wall thickness is normal. 3. There is severe global hypokinesis of LV . 4. Overall left ventricular systolic function is severely impaired with, an EF < 20%. 5. The right ventricle is normal in size. 6. The left atrial size is normal. 7. The right atrial size is normal. 8. There is mild aortic valve sclerosis. 9. Mild mitral regurgitation is present. 10. Mild tricuspid regurgitation present. 11. Right ventricular systolic pressure is normal at < 35 mmHg. 12. The aortic root size is normal. 13. There is no pericardial effusion. 14. Large Pleural Effusion. RING SEWER: Shana Francisco RDCS
[2020-11-14] MEDS ORDERED: HEPARIN SODIUM,PORCINE 100 UNIT/ML 5 ML VIAL IV ONE (10:50)
[2020-11-14] MEDS ORDERED: SODIUM CHLORIDE 0.9% 100 ML with ceFAZolin 2,000 MG IV ONE ×2 (10:50)
[2020-11-14] MEDS ORDERED: IOPAMIDOL-370 50ML BTL IRRIGATION ONE (10:50)
--- NOTE | 2020-11-14 11:45 | XR ---
EXAMINATION TYPE: XR chest 1V portable DATE OF EXAM: 11/14/2020 CLINICAL HISTORY: Post-Mediport insertion. TECHNIQUE: Single AP portable upright view of the chest is obtained. COMPARISON: Chest x-ray from November 09, 2020. CTA chest October 30, 2020 FINDINGS: Stable right subclavian Mediport catheter. Azygos lobe/fissure redemonstrated. Chronic par enchymal changes with persistent left basilar opacity. Cardiac silhouette size stable and within norm al limits. Osseous structures are intact. IMPRESSION: Chronic changes with persistent left basilar acute infiltrate and/or atelectasis. No new infiltrates seen.
--- NOTE | 2020-11-14 12:01 | FL ---
EXAMINATION TYPE: FL guided central line placemt DATE OF EXAM: 11/14/2020 CLINICAL HISTORY: Port-A-Cath insertion. TECHNIQUE: Fluoroscopy. COMPARISON: None. FINDINGS: Fluoroscopic guidance was provided during Mediport catheter insertion procedure performed by surgeon. A total of 6 seconds of fluoroscopic time was utilized during the procedure and 1 spot i mages was acquired. Single intraoperative image shows right subclavian Mediport catheter terminating in SVC. IMPRESSION: As Above.
[2020-11-14] MEDS: LACTATED RINGERS 1,000 ML IV SCH (12:31)
--- NOTE | 2020-11-14 12:54 | US ---
EXAMINATION TYPE: US abdomen limited DATE OF EXAM: 11/14/2020 COMPARISON: CT October 28, 2020 CLINICAL HISTORY: assess for fluid pocket please. Ascites. Swelling. Moderate amount of ascites present with septations visualized IMPRESSION: Moderate amount of recurrent ascites redemonstrated on the 8 images saved with slightly less prominent fluid in the left abdomen.
[2020-11-14] MEDS: ENOXAPARIN 60 MG/0.6 ML SYRINGE SQ SCH ×2 (14:26→20:39)
--- NOTE | 2020-11-14 16:24 | P.PN ---
Subjective Progress Note Date: 11/14/20 (delayed charting seen at 0845) Principal diagnosis: abdominal pain and distension Patient is a 54-year-old female with recently diagnosed ovarian cancer, chronic low back pain, seasonal ALLERGIES, and asthma who presented to the ER secondary to increased abdominal pain and distention. She was initially admitted here from 10/28 to 10/31 where she was discovered to have ovarian cancer and a pulmonary embolism. She has been taking Eliquis at home. On arrival to the ER this time she was found to have significant abdominal ascites secondary to ovarian cancer with metastasis. She is admitted for further management. Her Eliquis was held. She was seen by oncology who initially felt to be best served by urgent evaluation from an [facility]. She is an appointment with Dr. Steen on 11/15. She underwent paracentesis with removal of 8.5 L on 11/11. Patient states almost immediately recurred. Initiation for transfer to, [facility] was started on 11/[address] Steen accepted the patient, currently awaiting financial clearance. Plan is for Port today. Heart rate has been varying 130 to 150 per nursing, BP stable but low. Plan for paracentesis. Patient seen seen and examined at bedside. No chest pain, SOB, dizziness, excited to get port and started on chemo. All questions answered. General: Ill appearing, no distress, appears at stated age, temporal and buccal mucosal wasting Derm: warm, dry Head: atraumatic, normocephalic, symmetric Eyes: EOMI, no lid lag, anicteric sclera Mouth: no lip lesion, mucus membranes moist Cardiovascular: S1S2 reg, no murmur, positive posterior tibial pulse bilateral, Lungs: Faint crackles right base, no rhonchi, no rales , no accessory muscle use Abdominal: soft,+ distended, nontender to palpation, no guarding, no appreciable organomegaly Ext: no gross muscle atrophy, trace edema, no contractures Neuro: CN II-XI grossly intact, no focal neuro deficits Psych: Alert, oriented, appropriate affect Malignant ascities, likely ovarain CA vs primary peritoneal carcinoma on recent path, CA 125> 12,000 -Discussed with oncology, port today, chemo in AM -Plan is for port today, para today -Still awaiting to hear back from [facility] Recent Pulmonary embolism -Has been transitioned from Eliquis to Lovenox incase additional procedures needed Newly discovered systolic cardiomyopathy, EF < 20%, sinus tachycardia - No candidate for ACEI or BB due to hypotension - consult cardio - undetermined etiology -Telemetry Transaminits, mild- liver normal on CT oct 2020 - repeat in AM Hyponatmeia, likely due to ascities and fluid overload state - follow NA, stable - limit IVF - lasix once able Thromboytosis, reactive - follow CBC Constipation -mirlax DVT prophylaxis:Lovenox Discussed with: Patient, CM, Daimond Love NP Anticipated discharge: today if accepted to [facility] Anticipated discharge place: [facility] vs other A total of 25 minutes was spent on the care of this complex patient more than 50% of the time was spent in counseling and care coordination. Objective - Vital Signs Vital signs: Vital Signs Temp 98.5 F 11/14/20 09:24 Pulse 122 H 11/14/20 15:40 Resp 16 11/14/20 15:40 BP 90/52 11/14/20 15:40 Pulse Ox 95 11/14/20 15:40 Intake & Output 11/13/20 11/14/20 11/14/20 18:59 06:59 18:59 Intake Total 947 683 4340 Output Total 5 Balance 896 608 1469 Weight 61.3 kg 61.3 kg Intake: IV 800 Oral 240 240 540 Output: Estimated Blood Loss 5 Other: Voiding Method Toilet Toilet # Voids 3 2 # Bowel Movements 1 - Labs CBC & Chem 7: 11/14/20 05:59 11/14/20 05:59 Labs: Abnormal Lab Results - Last 24 Hours (Table) 11/14/20 11/14/20 Range/Units 05:59 05:59 Plt Count 682 H (150-450) k/uL Sodium 129 L (137-145) mmol/L Chloride 94 L (98-107) mmol/L BUN 21 H (7-17) mg/dL AST 69 H (14-36) U/L ALT 51 H (4-34) U/L Alkaline Phosphatase 184 H (38-126) U/L Total Protein 5.0 L (6.3-8.2) g/dL Albumin 2.6 L (3.5-5.0) g/dL
--- NOTE | 2020-11-14 17:06 | US ---
EXAMINATION TYPE: US paracentesis abd w/image DATE OF EXAM: 11/14/2020 COMPARISON: NONE HISTORY: Ascites. PROCEDURE: Maximal barrier technique was utilized. The skin overlying a suitable pocket of fluid was localized with ultrasound and the overlying skin was prepped and draped. Ultrasound was utilized with sterile technique. Lidocaine was used for local anesthesia and a skin salome made with a scalpel. Catheter was advanced under direct ultrasound guidance into a suitable pocket of fluid and approximately 2.9 liter s of serous fluid were removed. Catheter was withdrawn and hemostasis achieved. There is no immedia te complication; the patient is discharged in stable condition. IMPRESSION: STATUS POST ULTRASOUND GUIDED PARACENTESIS FOR PALLIATION OF ASCITES. THIS PROCEDURE WA S PERFORMED BY THE UNDERSIGNED.
[2020-11-14] MEDS: HYDROmorphone 0.5 MG/0.5 ML SYRINGE IVP PRN ×2 (18:31→23:04)
[2020-11-15] MEDS: ALBUMIN HUMAN 25% 50 ML in EMPTY BAG 1 BAG IVPB SCH ×7 (06:51→15:51)
[2020-11-15] MEDS ORDERED: diphenhydrAMINE 50 MG/ML 1 ML VIAL IVP ONE ×2 (08:00→14:00)
[2020-11-15] MEDS ORDERED: DEXAMETHASONE SOD PHOSPHATE 10 MG/ML 1 ML VIAL IV ONE ×2 (08:00→14:00)
[2020-11-15] MEDS ORDERED: ONDANSETRON 16 MG in SODIUM CHLORIDE 0.9% 50 ML IVPB ONE ×2 (08:00→14:00)
[2020-11-15] MEDS ORDERED: FAMOTIDINE 20 MG/2 ML VIAL IV ONE ×2 (08:00→14:00)
[2020-11-15] MEDS ORDERED: PACLITAXEL IV ONE ×2 (08:30→15:00)
[2020-11-15] MEDS ORDERED: SODIUM CHLORIDE 0.9% IV ONE ×4 (08:30→18:00)
[2020-11-15] MEDS ORDERED: CARBOPLATIN IV ONE ×2 (08:30→18:00)
[2020-11-15 08:35] LABS: ALT 42 U/L (4-34); AST 54 U/L (14-36); African American GFR (CKD) >90 (>60 ml/min/1.73 sqM); Albumin 2.5 g/dL (3.5-5.0); Alkaline Phosphatase 179 U/L (38-126); Anion Gap 5 mmol/L; Basophils # (A) 0.1 k/uL (0-0.2); Basophils % (A) 1 %; Blood Urea Nitrogen 20 mg/dL (7-17); Calcium 8.4 mg/dL (8.4-10.2); Carbon Dioxide 29 mmol/L (22-30); Chloride 95 mmol/L (98-107); Eosinophils # (A) 0.1 k/uL (0-0.7); Eosinophils % (A) 1 %; Glucose 83 mg/dL (74-99); HGB 11.7 gm/dL (11.4-16.0); Lymphocytes # (A) 1.8 k/uL (1.0-4.8); Lymphocytes % (A) 19 %; MCHC 33.3 g/dL (31.0-37.0); MCV 93.1 fL (80.0-100.0); Mean Platelet Volume 7.3; Monocytes # (A) 0.7 k/uL (0-1.0); Monocytes % (A) 8 %; Neutrophils # (A) 6.8 k/uL (1.3-7.7); Neutrophils % (A) 71 %; Non-African American GFR(CKD) >90 (>60 ml/min/1.73 sqM); Platelet Count 602 k/uL (150-450); Potassium 4.4 mmol/L (3.5-5.1); RBC 3.76 m/uL (3.80-5.40); RDW 13.2 % (11.5-15.5); Sodium 129 mmol/L (137-145); Total Bilirubin 0.2 mg/dL (0.2-1.3); Total Protein 4.9 g/dL (6.3-8.2); WBC 9.4 k/uL (3.8-10.6)
[2020-11-15] MEDS: LACTATED RINGERS 1,000 ML IV SCH (08:37)
[2020-11-15] MEDS: ENOXAPARIN 60 MG/0.6 ML SYRINGE SQ SCH ×2 (08:37→21:14)
[2020-11-15] MEDS: METOPROLOL TARTRATE 12.5 MG TAB PO SCH (08:37)
[2020-11-15] MEDS: polyethylene glycoL 3350 17 GM POWD.PACK PO SCH (08:37)
--- NOTE | 2020-11-15 10:47 | P.PN ---
Subjective Progress Note Date: 11/15/20 Principal diagnosis: Recent/New Ovarian Cancer with Malignant Ascites Cardiology evaluation and cleared for chemotherapy. Objective - Vital Signs Vital signs: Vital Signs Temp 98.0 F 11/15/20 04:00 Pulse 103 H 11/15/20 04:00 Resp 16 11/15/20 04:00 BP 99/57 11/15/20 04:00 Pulse Ox 95 11/15/20 04:00 Intake & Output 11/14/20 11/15/20 11/15/20 18:59 06:59 18:59 Intake Total 1880 550 240 Output Total 5 200 Balance 1875 550 40 Weight 61.3 kg 60.5 kg Intake: IV 800 Oral 1080 550 240 Output: Urine 200 Estimated Blood Loss 5 Other: Voiding Method Toilet # Voids 2 1 - Exam - EENT Eyes: anicteric sclerae, EOMI, poor dentition ENT: hearing grossly normal, normal oropharynx - Neck Neck: no lymphadenopathy, normal ROM - Respiratory Respiratory: bilateral: CTA - Cardiovascular Rhythm: regular Heart sounds: normal: S1, S2 Abnormal Heart Sounds: no systolic murmur, no diastolic murmur, no rub, no S3 Gallop, no S4 Gallop, no click, no other leg Peripheral Edema: bilateral: None - Gastrointestinal General gastrointestinal: Decreased bowel sound, extensive ascites. - Integumentary Integumentary: normal - Neurologic Neurologic: CNII-XII intact - Musculoskeletal Musculoskeletal: strength equal bilaterally - Psychiatric Psychiatric: A&O x's 3, appropriate affect, intact judgment & insight - Constitutional General appearance: cooperative, no acute distress - EENT Eyes: EOMI ENT: NA/AT - Neck Neck: normal ROM - Respiratory Respiratory: bilateral: diminished (bilateral lower lobes. ) - Cardiovascular Heart rate: 118 - Labs CBC & Chem 7: 11/15/20 07:22 11/15/20 07:22 Labs: Abnormal Lab Results - Last 24 Hours (Table) 11/15/20 11/15/20 Range/Units 07:22 07:22 RBC 3.76 L (3.80-5.40) m/uL Plt Count 602 H (150-450) k/uL Sodium 129 L (137-145) mmol/L Chloride 95 L (98-107) mmol/L BUN 20 H (7-17) mg/dL AST 54 H (14-36) U/L ALT 42 H (4-34) U/L Alkaline Phosphatase 179 H (38-126) U/L Total Protein 4.9 L (6.3-8.2) g/dL Albumin 2.5 L (3.5-5.0) g/dL Assessment and Plan Plan: Assessment and Recommendations: Likely new diagnosis of locally advanced Ovarian Cancer: with increased malignant ascites: - Discussion with Dr. Steen yesterday regarding recommendation of zenaida-adjuvant chemotherapy to begin inpatient on Wednesday11/15/20. Status POst Mediport Status POst therapeutic paracentesis 2.9L - Today 11/14/20 Echocardiogram with EF 20%, discussed with primary team Cardiology has cleared for chemo, awaiting the ok from Dr. lubin to continue Start Day one of inpatient chemo today Physician Attest: I have completed full history and physical and agree with above, dictated as a scribe
--- NOTE | 2020-11-15 11:02 | P.CRDCN ---
<Marta Toribio - Last Filed: 11/15/20 11:00> History of Present Illness History of present illness: HISTORY OF PRESENTING ILLNESS This is a pleasant 54-year-old female past medical history significant for new diagnosis 3 weeks ago for ovarian cancer with ascites requiring paracentesis and PE. She denies prior history of coronary artery disease and does not follow in the office with a stave block splitter. We have been asked to see in consultation for cardiomyopathy. She was diagnosed earlier this month with o varian cancer. She has not started treatment yet. She follows with Dr. Wilson. She presented to the hospital with symptoms of increasing abdominal size and discomfort. Since admission she has undergone a paracentesis on 2 separate occasions the first one with a 8.5L removed and the second with 2.9 L removed. Persistently throughout this admission she has been tachycardic with frequent PVCs. Telemetry tracings reveals sinus tachycardia with frequent PVCs and a 13 beat run of wide complex ventricular tachycardia noted last night. An echocardiogram was performed revealing severely impaired LV systolic function with ejection fraction less than 20% mild MR, mild TR and large pleural effusion noted. No pericardial effusion. Prior to this diagnosis the patient states she has been extremely active and healthy. She exercises on a daily basis. She rides a bike outside on trails for many miles per day and in the gallbladder she uses an indoor stationery spin bike. In fact she had her sister bring in free weights to the hospital so she could continue her exercise throughout her hospitalization. She denies ever having had exertional chest pain or shortness of breath. Currently she feels comfortable. Prior to her paracentesis she said her abdominal discomfort caused her to have to sit up for comfort. She was unable to lay completely flat. She denied specific orthopnea only that her stomach felt so full and heavy she couldn't lay flat due to the pressure. She underwent Mediport placement yesterday with plans to begin chemotherapy this morning. DIAGNOSTICS EKG reveals sinus tachycardia. Chest xray left basilar infiltrate, chronic. Laboratory reviewed, WBC 9.4, hemoglobin 11.7, platelets 602, sodium 129, potassium 4.4, creatinine 0.53, magnesium 2.1, TSH 2.48. She takes no daily cardiac medications. REVIEW OF SYSTEMS At the time of my exam: CONSTITUTIONAL: Denies fever or chills. CARDIOVASCULAR: Denies chest pain, shortness of breath, orthopnea, PND or palpitations. RESPIRATORY: Denies cough. GASTROINTESTINAL: Denies abdominal pain, diarrhea, constipation, nausea or vomiting. MUSCULOSKELETAL: Denies myalgias. NEUROLOGIC: Denies numbness, tingling, headacbe or weakness. ENDOCRINE: Denies fatigue, weight change, polydipsia or polyurina. GENITOURINARY: Denies burning, hematuria or urgency with micturation. HEMATOLOGIC: Denies history of anemia or bleeding. PHYSICAL EXAMINATION Blood pressure 99/57 heart rate 103 afebrile and maintaining oxygen saturation on room air. CONSTITUTIONAL: No apparent distress. HEENT: Head is normocephalic. Pupils are equal, round. Sclerae anicteric. Mucous membranes of the mouth are moist. No JVD. No carotid bruit. CHEST EXAMINATION: Lungs are clear to auscultation. No chest wall tenderness is noted on palpation or with deep breathing. HEART EXAMINATION: Regular rate and rhythm, tachycardic. S1, S2 heard. No murmurs, gallops or rub. ABDOMEN: Soft, nontender. Positive bowel sounds. EXTREMITIES: 2+ peripheral pulses, no lower extremity edema and no calf tenderness. NEUROLOGIC EXAMINATION: Patient is awake, alert and oriented x3. ASSESSMENT Acute systolic heart failure Cardiomyopathy, unknown if ischemic or non-ischemic. Suspect non-ischemic Ovarian cancer, new diagnosis with malignant ascites. Chemotherapy scheduled to begin today. PLAN Initiate low dose beta mario due to hypotension and increase as tolerated. Would like to start on low dose CHRISTIAN if her blood pressure will tolerate. She is scheduled to start paraplatin and paclitaxel today. No contraindications to start chemotherapy today. Ongoing telemetry monitoring. Further recommendations to follow based on clinical course. Thank you kindly for this consultation. Nurse Practitioner note has been reviewed, I agree with a documented findings and plan of care. Patient was seen and examined. Past Medical History Past Medical History: Asthma, Cancer Additional Past Medical History / Comment(s): Bronchitis, chronic low back pain/mild scoliosis, sinus problems/seasonal allergies. ovarian cancer-recently diagnosed in past 3 weeks f/u with [facility] and now surgeon in [place] for 11/15/20 History of Any Multi-Drug Resistant Organisms: None Reported Past Surgical History: Hernia Repair Additional Past Surgical History / Comment(s): Umbilical hernia, D&Cs, wisdom teeth extractions. Paracentesis 10/29/20 Additional Past Anesthesia/Blood Transfusion Reaction / Comment(s): Hypotensive with hernia surgery Past Psychological History: Anxiety Additional Psychological History / Comment(s): Pt resides alone with her dog. She is independent. Smoking Status: Former smoker Past Alcohol Use History: None Reported Additional Past Alcohol Use History / Comment(s): Pt started smoking in 1984, quit in 1988. Smoked less than half a pack a day. Past Drug Use History: None Reported - Past Family History Mother Family Medical History: Coronary Artery Disease (CAD) Additional Family Medical History / Comment(s): Mother is 83 yrs old and healthy Father Family Medical History: Cancer Additional Family Medical History / Comment(s): Father is at 85 yrs. He had colon cancer. Medications and Allergies Home Medications Medication Instructions Recorded Confirmed Type Apixaban [Eliquis Starter Pack See Taper PO BID 11/09/20 11/14/20 History (for VTE)] Allergies Allergy/AdvReac Type Severity Reaction Status Date / Time No Known Allergies Allergy Verified 11/14/20 09:20 Physical Exam Vitals: Vital Signs Temp Pulse Pulse Resp BP Pulse Ox 11/15/20 04:00 98.0 F 103 H 16 99/57 95 11/15/20 00:00 97.6 F 102 H 16 92/56 95 11/14/20 19:56 97.5 F L 108 H 16 90/54 95 11/14/20 16:06 124 H 16 93/61 95 11/14/20 15:40 122 H 16 90/52 95 11/14/20 14:00 120 H 11/14/20 12:00 120 H 20 99/58 94 L 11/14/20 11:45 110 H 16 84/63 98 11/14/20 11:30 108 H 16 91/67 98 11/14/20 11:17 117 H 12 86/61 93 L 11/14/20 09:24 98.5 F 129 H 18 97/63 96 Intake and Output 11/14/20 11/15/20 11/15/20 22:59 06:59 14:59 Intake Total 540 550 240 Output Total 200 Balance 540 550 40 Intake: Oral 540 550 240 Output: Urine 200 Other: Voiding Method Toilet Toilet # Voids 1 Weight 60.5 kg Results 11/15/20 07:22 11/15/20 07:22 Cardiac Enzymes 11/15/20 Range/Units 07:22 AST 54 H (14-36) U/L CBC 11/15/20 Range/Units 07:22 WBC 9.4 (3.8-10.6) k/uL RBC 3.76 L (3.80-5.40) m/uL Hgb 11.7 (11.4-16.0) gm/dL Hct 35.0 (34.0-46.0) % Plt Count 602 H (150-450) k/uL Comprehensive Metabolic Panel 11/15/20 Range/Units 07:22 Sodium 129 L (137-145) mmol/L Potassium 4.4 (3.5-5.1) mmol/L Chloride 95 L (98-107) mmol/L Carbon Dioxide 29 (22-30) mmol/L BUN 20 H (7-17) mg/dL Creatinine 0.53 (0.52-1.04) mg/dL Glucose 83 (74-99) mg/dL Calcium 8.4 (8.4-10.2) mg/dL AST 54 H (14-36) U/L ALT 42 H (4-34) U/L Alkaline Phosphatase 179 H (38-126) U/L Total Protein 4.9 L (6.3-8.2) g/dL Albumin 2.5 L (3.5-5.0) g/dL Current Medications Generic Name Dose Route Start Last Admin Trade Name Freq PRN Reason Stop Dose Admin Alprazolam 0.25 mg 11/12/20 17:20 11/13/20 21:25 Alprazolam 0.25 Mg Tab PO 0.25 mg TID PRN Administration Anxiety Artificial Tears 1 drops 11/12/20 17:20 Artificial Tears-Hypromellose Drops 15 Ml Btl BOTH EYES QID PRN Dry Eye(s) Enoxaparin Sodium 60 mg 11/12/20 09:00 11/15/20 08:37 Enoxaparin 60 Mg/0.6 Ml Syringe SQ 60 mg Q12HR SAGE Administration Hydromorphone HCl 0.5 mg 11/09/20 12:53 11/14/20 23:04 Hydromorphone 0.5 Mg/0.5 Ml Syringe IVP 0.5 mg Q3H PRN Administration Moderate Pain Lactated Ringer's 1,000 mls @ 20 mls/hr 11/14/20 07:00 11/15/20 08:37 Lactated Ringers IV 20 mls/hr .Q24H SAGE Administration Lidocaine HCl 0.1 ml 11/14/20 07:00 Lidocaine 1% (10mg/Ml) For Iv Start INTRADERMA PER PROTOCOL PRN IV Start Metoprolol Tartrate 12.5 mg 11/15/20 09:00 11/15/20 08:37 Metoprolol Tartrate 12.5 Mg Tab PO 12.5 mg BID SAGE Administration Naloxone HCl 0.2 mg 11/09/20 14:14 Naloxone 0.4 Mg/Ml 1 Ml Vial IV Q2M PRN Opioid Reversal Ondansetron HCl 4 mg 11/09/20 12:53 11/14/20 18:31 Ondansetron 4 Mg/2 Ml Vial IVP 4 mg Q8H PRN Administration Nausea And Vomiting Polyethylene Glycol 17 gm 11/10/20 09:00 11/15/20 08:37 Polyethylene Glycol 3350 17 Gm Powd.Pack PO 17 gm DAILY SAGE Administration Intake and Output 11/14/20 11/15/20 11/15/20 22:59 06:59 14:59 Intake Total 540 550 240 Output Total 200 Balance 540 550 40 Intake: Oral 540 550 240 Output: Urine 200 Other: Voiding Method Toilet Toilet # Voids 1 Weight 60.5 kg 11/15/20 07:22 11/15/20 07:22 <Cortes Argueta - Last Filed: 11/15/20 16:55> Physical Exam Vitals: Vital Signs Temp Pulse Resp BP Pulse Ox 11/15/20 16:00 110 H 104/54 11/15/20 12:00 109 H 93/58 97 11/15/20 08:00 98.3 F 119 H 109/69 98 11/15/20 04:00 98.0 F 103 H 16 99/57 95 11/15/20 00:00 97.6 F 102 H 16 92/56 95 11/14/20 19:56 97.5 F L 108 H 16 90/54 95 Intake and Output 11/15/20 11/15/20 11/15/20 06:59 14:59 22:59 Intake Total 550 480 Output Total 200 Balance 550 280 Intake: Oral 550 480 Output: Urine 200 Other: Voiding Method Toilet Weight 60.5 kg Results 11/15/20 07:22 11/15/20 07:22 Cardiac Enzymes 11/15/20 Range/Units 07:22 AST 54 H (14-36) U/L CBC 11/15/20 Range/Units 07:22 WBC 9.4 (3.8-10.6) k/uL RBC 3.76 L (3.80-5.40) m/uL Hgb 11.7 (11.4-16.0) gm/dL Hct 35.0 (34.0-46.0) % Plt Count 602 H (150-450) k/uL Comprehensive Metabolic Panel 11/15/20 Range/Units 07:22 Sodium 129 L (137-145) mmol/L Potassium 4.4 (3.5-5.1) mmol/L Chloride 95 L (98-107) mmol/L Carbon Dioxide 29 (22-30) mmol/L BUN 20 H (7-17) mg/dL Creatinine 0.53 (0.52-1.04) mg/dL Glucose 83 (74-99) mg/dL Calcium 8.4 (8.4-10.2) mg/dL AST 54 H (14-36) U/L ALT 42 H (4-34) U/L Alkaline Phosphatase 179 H (38-126) U/L Total Protein 4.9 L (6.3-8.2) g/dL Albumin 2.5 L (3.5-5.0) g/dL Current Medications Generic Name Dose Route Start Last Admin Trade Name Freq PRN Reason Stop Dose Admin Alprazolam 0.25 mg 11/12/20 17:20 11/13/20 21:25 Alprazolam 0.25 Mg Tab PO 0.25 mg TID PRN Administration Anxiety Artificial Tears 1 drops 11/12/20 17:20 Artificial Tears-Hypromellose Drops 15 Ml Btl BOTH EYES QID PRN Dry Eye(s) Enoxaparin Sodium 60 mg 11/12/20 09:00 11/15/20 08:37 Enoxaparin 60 Mg/0.6 Ml Syringe SQ 60 mg Q12HR SAGE Administration Hydromorphone HCl 0.5 mg 11/09/20 12:53 11/14/20 23:04 Hydromorphone 0.5 Mg/0.5 Ml Syringe IVP 0.5 mg Q3H PRN Administration Moderate Pain Lactated Ringer's 1,000 mls @ 20 mls/hr 11/14/20 07:00 11/15/20 08:37 Lactated Ringers IV 20 mls/hr .Q24H SAGE Administration Carboplatin 790 mg/ Sodium 329 mls @ 329 mls/hr 11/15/20 18:00 Chloride IV 11/15/20 18:59 ONCE ONE Paclitaxel 300 mg/ Sodium 550 mls @ 183.333 mls/hr 11/15/20 15:00 11/15/20 15:20 Chloride IV 11/15/20 17:59 183.333 mls/hr ONCE ONE Administration Lidocaine HCl 0.1 ml 11/14/20 07:00 Lidocaine 1% (10mg/Ml) For Iv Start INTRADERMA PER PROTOCOL PRN IV Start Metoprolol Tartrate 12.5 mg 11/15/20 09:00 11/15/20 08:37 Metoprolol Tartrate 12.5 Mg Tab PO 12.5 mg BID SAGE Administration Naloxone HCl 0.2 mg 11/09/20 14:14 Naloxone 0.4 Mg/Ml 1 Ml Vial IV Q2M PRN Opioid Reversal Ondansetron HCl 4 mg 11/09/20 12:53 11/14/20 18:31 Ondansetron 4 Mg/2 Ml Vial IVP 4 mg Q8H PRN Administration Nausea And Vomiting Polyethylene Glycol 17 gm 11/10/20 09:00 11/15/20 08:37 Polyethylene Glycol 3350 17 Gm Powd.Pack PO 17 gm DAILY SAGE Administration Intake and Output 11/15/20 11/15/20 11/15/20 06:59 14:59 22:59 Intake Total 550 480 Output Total 200 Balance 550 280 Intake: Oral 550 480 Output: Urine 200 Other: Voiding Method Toilet Weight 60.5 kg 11/15/20 07:22 11/15/20 07:22
--- NOTE | 2020-11-15 11:37 | P.PN ---
Subjective Progress Note Date: 11/15/20 CHIEF COMPLAINT: Ovarian cancer HISTORY OF PRESENT ILLNESS: Patient is status post port a catheter placement for chemotherapy. She is scheduled to start chemotherapy today. She denies any pain at port site. Denies any nausea or vomiting. She did have paracentesis yesterday with 2.9 L removed. She is tolerating regular diet. Afebrile. Remains tachycardic. WBC 9.4 PHYSICAL EXAM: VITAL SIGNS: Reviewed. GENERAL: Well-developed in no acute distress. HEENT: No sclera icterus. Extraocular movements grossly intact. Moist buccal mucosa. Head is atraumatic, normocephalic. ABDOMEN: Soft. Distended with ascites. Nontender. NEUROLOGIC: Alert and oriented. Cranial nerves II through XII grossly intact. SKIN: Port on right-sided chest. area is clean dry and intact. ASSESSMENT: 1. Ovarian cancer patient is status post port a catheter placement for chemotherapy 2. Malignant ascites PLAN: -Okay to proceed with chemotherapy through port -Continue supportive care Physician Sack Sewer Machine note has been reviewed by physician. Signing provider agrees with the documented findings, assessment, and plan of care. Objective - Vital Signs Vital signs: Vital Signs Temp 98.3 F 11/15/20 08:00 Pulse 119 H 11/15/20 08:00 Resp 16 11/15/20 04:00 BP 109/69 11/15/20 08:00 Pulse Ox 98 11/15/20 08:00 Intake & Output 11/14/20 11/15/20 11/15/20 18:59 06:59 18:59 Intake Total 1880 550 240 Output Total 5 200 Balance 1875 550 40 Weight 61.3 kg 60.5 kg Intake: IV 800 Oral 1080 550 240 Output: Urine 200 Estimated Blood Loss 5 Other: Voiding Method Toilet # Voids 2 1 - Labs CBC & Chem 7: 11/15/20 07:22 11/15/20 07:22 Labs: Abnormal Lab Results - Last 24 Hours (Table) 11/15/20 11/15/20 Range/Units 07:22 07:22 RBC 3.76 L (3.80-5.40) m/uL Plt Count 602 H (150-450) k/uL Sodium 129 L (137-145) mmol/L Chloride 95 L (98-107) mmol/L BUN 20 H (7-17) mg/dL AST 54 H (14-36) U/L ALT 42 H (4-34) U/L Alkaline Phosphatase 179 H (38-126) U/L Total Protein 4.9 L (6.3-8.2) g/dL Albumin 2.5 L (3.5-5.0) g/dL
--- NOTE | 2020-11-15 15:37 | P.PN ---
Subjective Progress Note Date: 11/15/20 (delayed charting seen at 1015 ) Principal diagnosis: abdominal pain and distension Patient is a 54-year-old female with recently diagnosed ovarian cancer, chronic low back pain, seasonal ALLERGIES, and asthma who presented to the ER secondary to increased abdominal pain and distention. She was initially admitted here from 10/28 to 10/31 where she was discovered to have ovarian cancer and a pulmonary embolism. She has been taking Eliquis at home. On arrival to the ER this time she was found to have significant abdominal ascites secondary to ovarian cancer with metastasis. She is admitted for further management. Her Eliquis was held. She was seen by oncology who initially felt to be best served by urgent evaluation from an alpine patroller oncology. She is an appointment with Dr. Steen on 11/15. She underwent paracentesis with removal of 8.5 L on 11/11. Patient states almost immediately recurred. Initiation for transfer to, [facility] was started on 11/[address] Steen accepted the patient, currently awaiting financial clearance. Had port placed on 11/14 without complications. Heart rate has been varying 130 to 150 per nursing, BP stable but low and echo ordered, ef <20%, cardio consult placed and oncology notified. She underwent para on 11/14 with removal of 2.6 L of fluid and no albumin indicated. Patient seen seen and examined at bedside. Doing well, feeling anxious to get chemo started, no chest pain, no nausea, no vomiting, no diarrhea General: Ill appearing, no distress, appears at stated age, temporal and buccal mucosal wasting Derm: warm, dry Head: atraumatic, normocephalic, symmetric Eyes: EOMI, no lid lag, anicteric sclera Mouth: no lip lesion, mucus membranes moist Cardiovascular: S1S2 reg, no murmur, positive posterior tibial pulse bilateral, Lungs: Faint crackles right base, no rhonchi, no rales , no accessory muscle use Abdominal: soft,+ distended, nontender to palpation, no guarding, no appreciable organomegaly Ext: no gross muscle atrophy, trace edema, no contractures Neuro: CN II-XI grossly intact, no focal neuro deficits Psych: Alert, oriented, appropriate affect Malignant ascities, likely Ovarian CA vs primary peritoneal carcinoma on recent path, CA 125> 12,000 -s/p port 3/4 - Last para 3/4 - chemo 3/4- carboplatin and taxol Newly discovered systolic cardiomyopathy, EF < 20%, sinus tachycardia - Cardio recs appreciated : low dose metoprolol today and monitor BP closely - follow CR closely with carboplatin prior to CHRISTIAN starting - undetermined etiology - Telemetry Recent Pulmonary embolism -Has been transitioned from Eliquis to Lovenox incase additional procedures needed. Plan on discharge Transaminits, mild- liver normal on CT oct 2020 - repeat in AM Hyponatmeia, likely due to ascities and fluid overload state - follow NA, stable - limit IVF - lasix once able, pt reports decreased BP with lasix prior Thromboytosis, reactive - follow CBC Constipation -mirlax DVT prophylaxis:Lovenox Discussed with: Patient, CM, Diamond Love NP Anticipated discharge: 3-[address]: home A total of 25 minutes was spent on the care of this complex patient more than 50% of the time was spent in counseling and care coordination. Objective - Vital Signs Vital signs: Vital Signs Temp 98.3 F 11/15/20 08:00 Pulse 109 H 11/15/20 12:00 Resp 16 11/15/20 04:00 BP 93/58 11/15/20 12:00 Pulse Ox 97 11/15/20 12:00 Intake & Output 11/14/20 11/15/20 11/15/20 18:59 06:59 18:59 Intake Total 1880 550 480 Output Total 5 200 Balance 1875 550 280 Weight 61.3 kg 60.5 kg Intake: IV 800 Oral 1080 550 480 Output: Urine 200 Estimated Blood Loss 5 Other: Voiding Method Toilet # Voids 2 1 - Labs CBC & Chem 7: 11/15/20 07:22 11/15/20 07:22 Labs: Abnormal Lab Results - Last 24 Hours (Table) 11/15/20 11/15/20 Range/Units 07:22 07:22 RBC 3.76 L (3.80-5.40) m/uL Plt Count 602 H (150-450) k/uL Sodium 129 L (137-145) mmol/L Chloride 95 L (98-107) mmol/L BUN 20 H (7-17) mg/dL AST 54 H (14-36) U/L ALT 42 H (4-34) U/L Alkaline Phosphatase 179 H (38-126) U/L Total Protein 4.9 L (6.3-8.2) g/dL Albumin 2.5 L (3.5-5.0) g/dL
[2020-11-16] MEDS: METOPROLOL TARTRATE 12.5 MG TAB PO SCH ×2 (02:43→08:25)
[2020-11-16] MEDS: LACTATED RINGERS 1,000 ML IV SCH (07:08)
[2020-11-16 07:37] LABS: ALT 128 U/L (4-34); AST 196 U/L (14-36); African American GFR (CKD) >90 (>60 ml/min/1.73 sqM); Albumin 2.8 g/dL (3.5-5.0); Alkaline Phosphatase 247 U/L (38-126); Blood Urea Nitrogen 16 mg/dL (7-17); Calcium 8.5 mg/dL (8.4-10.2); Carbon Dioxide 29 mmol/L (22-30); Glucose 120 mg/dL (74-99); Magnesium 2.1 mg/dL (1.6-2.3); Non-African American GFR(CKD) >90 (>60 ml/min/1.73 sqM); Potassium 4.3 mmol/L (3.5-5.1); Sodium 134 mmol/L (137-145); Total Bilirubin 0.3 mg/dL (0.2-1.3)
[2020-11-16 07:43] LABS: HGB 10.8 gm/dL (11.4-16.0); Hypochromasia Slight; MCH 30.6 pg (25.0-35.0); MCHC 32.7 g/dL (31.0-37.0); MCV 93.6 fL (80.0-100.0); Mean Platelet Volume 7.4; Platelet Count 516 k/uL (150-450); RBC 3.52 m/uL (3.80-5.40); RDW 13.3 % (11.5-15.5); WBC 7.7 k/uL (3.8-10.6)
[2020-11-16 07:50] LABS: Anion Gap 5 mmol/L; Chloride 100 mmol/L (98-107)
[2020-11-16] MEDS: polyethylene glycoL 3350 17 GM POWD.PACK PO SCH (08:25)
[2020-11-16] MEDS: ENOXAPARIN 60 MG/0.6 ML SYRINGE SQ SCH ×2 (08:25→20:36)
--- NOTE | 2020-11-16 10:25 | P.PN ---
Subjective Progress Note Date: 11/16/20 Principal diagnosis: abdominal pain and distension Patient is a 54-year-old female with recently diagnosed ovarian cancer, chronic low back pain, seasonal ALLERGIES, and asthma who presented to the ER secondary to increased abdominal pain and distention. She was initially admitted here from 10/28 to 10/31 where she was discovered to have ovarian cancer and a pulmonary embolism. She has been taking Eliquis at home. On arrival to the ER this time she was found to have significant abdominal ascites secondary to ovarian cancer with metastasis. She is admitted for further management. Her Eliquis was held. She was seen by oncology who initially felt to be best served by urgent evaluation from an senior interactive producer oncology. She is an appointment with Dr. Steen on 11/15. She underwent paracentesis with removal of 8.5 L on 11/11. Patient states almost immediately recurred. Initiation for transfer to, [facility] was started on 11/[address] Steen accepted the patient, currently awaiting financial clearance. Had port placed on 11/14 without complications. Heart rate has been varying 130 to 150 per nursing, BP stable but low and echo ordered, ef <20%, cardio consult placed and oncology notified. She underwent para on 11/14 with removal of 2.6 L of fluid and no albumin indicated. Stated on metoprolol with improving HR and stable BP. She had chemo on 11/15/20. Patient seen seen and examined at bedside. Tolerated first dose of chemo well. No chest pain, shortness of breath, no nausea, no vomiting, no diarrhea. Was winded with walking around room earlier. General: Ill appearing, no distress, appears at stated age, temporal and buccal mucosal wasting Derm: warm, dry Head: atraumatic, normocephalic, symmetric Eyes: EOMI, no lid lag, anicteric sclera Mouth: no lip lesion, mucus membranes moist Cardiovascular: S1S2 reg, no murmur, positive posterior tibial pulse bilateral, Lungs: CTA bilateral, no rhonchi, no rales , no accessory muscle use Abdominal: soft,+ distended, nontender to palpation, no guarding, no appreciable organomegaly Ext: no gross muscle atrophy, trace edema, no contractures Neuro: CN II-XI grossly intact, no focal neuro deficits Psych: Alert, oriented, appropriate affect Malignant ascities, likely Ovarian CA vs primary peritoneal carcinoma on recent path, CA 125> 12,000 - s/p port 3/4 - Last para 3/4 - chemo 3/5- carboplatin and taxol Newly discovered systolic cardiomyopathy, EF < 20%, sinus tachycardia - Cardio recs appreciated : metoprolol - follow CR closely with carboplatin prior to CHRISTIAN starting - undetermined etiology - Telemetry Recent Pulmonary embolism -Has been transitioned from Eliquis to Lovenox incase additional procedures needed. Plan on discharge Hyponatremia - improving - monitor closely - repeat bmp in AM Transaminits, worsening - likely due to chemo - repeat in AM - liver normal on CT oct 2020 Anemia, thrombocytosis - reactive and acute blood loss - follow CBC Constipation -mirlax DVT prophylaxis:Lovenox Discussed with: Patient, nursing Anticipated discharge: 2-[address]: home A total of 25 minutes was spent on the care of this complex patient more than 50% of the time was spent in counseling and care coordination. Objective - Vital Signs Vital signs: Vital Signs Temp 97.3 F L 11/16/20 08:20 Pulse 107 H 11/16/20 08:20 Resp 18 11/16/20 08:20 BP 103/64 11/16/20 08:20 Pulse Ox 96 11/16/20 08:20 Intake & Output 11/15/20 11/16/20 11/16/20 18:59 06:59 18:59 Intake Total 1130 630 Output Total 1200 1200 Balance -70 -570 Weight 61.7 kg Intake: Intake, IV Titration 410 30 Amount Albumin Human 25% 50 ml 200 In Empty Bag 1 bag @ 200 mls/hr IVPB Q15M SAGE Rx#: [id number] Lactated Ringers 1,000 ml 160 30 @ 20 mls/hr IV .Q24H SAGE Rx#:[id number] Ondansetron 16 mg In 50 Sodium Chloride 0.9% 50 ml @ 232 mls/hr IVPB ONCE ONE Rx#:[id number] Oral 720 600 Output: Urine 1200 1200 Other: Voiding Method Toilet Toilet # Voids 2 1 - Labs CBC & Chem 7: 11/16/20 06:47 11/16/20 06:47 Labs: Abnormal Lab Results - Last 24 Hours (Table) 11/16/20 11/16/20 Range/Units 06:47 06:47 RBC 3.52 L (3.80-5.40) m/uL Hgb 10.8 L (11.4-16.0) gm/dL Hct 33.0 L (34.0-46.0) % Plt Count 516 H (150-450) k/uL Sodium 134 L (137-145) mmol/L Glucose 120 H (74-99) mg/dL AST 196 H (14-36) U/L ALT 128 H (4-34) U/L Alkaline Phosphatase 247 H (38-126) U/L Total Protein 5.0 L (6.3-8.2) g/dL Albumin 2.8 L (3.5-5.0) g/dL
--- NOTE | 2020-11-16 11:16 | P.PN ---
Progress Note - Text Progress Note Date: 11/16/20 Port-A-Cath site is clean. Patient is currently using for chemotherapy. She'll continue receive supportive care.
--- NOTE | 2020-11-16 14:26 | P.PN ---
Subjective Progress Note Date: 11/16/20 Pt had chemo on . She appears to have tolerated it well, with no untoward side effects of Objective - Vital Signs Vital signs: Vital Signs Temp 97.3 F L 11/16/20 12:00 Pulse 96 11/16/20 12:00 Resp 18 11/16/20 12:00 BP 89/57 11/16/20 12:00 Pulse Ox 96 11/16/20 12:00 Intake & Output 11/15/20 11/16/20 11/16/20 18:59 06:59 18:59 Intake Total 1130 630 480 Output Total 1200 1200 300 Balance -70 -570 180 Weight 61.7 kg Intake: Intake, IV Titration 410 30 Amount Albumin Human 25% 50 ml 200 In Empty Bag 1 bag @ 200 mls/hr IVPB Q[facility]M [facility] Rx#: [id number] Lactated Ringers 1,000 ml 160 30 @ 20 mls/hr IV .Q24H [facility] Rx#:[id number] Ondansetron 16 mg In 50 Sodium Chloride 0.9% 50 ml @ 232 mls/hr IVPB ONCE ONE Rx#:[id number] Oral 720 600 480 Output: Urine 1200 1200 300 Other: Voiding Method Toilet Toilet # Voids 2 1 - Constitutional General appearance: Present: no acute distress - EENT Eyes: Present: EOMI ENT: Present: hearing grossly normal, normal oropharynx - Respiratory Respiratory: bilateral: CTA - Cardiovascular Rhythm: regular Heart sounds: normal: S1, S2 - Gastrointestinal General gastrointestinal: Present: distended, soft - Integumentary Integumentary: Present: normal - Neurologic Neurologic: Present: CNII-XII intact - Musculoskeletal Musculoskeletal: Present: generalized weakness - Psychiatric Psychiatric: Present: A&O x's 3, appropriate affect - Labs CBC & Chem 7: 11/16/20 06:47 11/16/20 06:47 Labs: Abnormal Lab Results - Last 24 Hours (Table) 11/16/20 11/16/20 Range/Units 06:47 06:47 RBC 3.52 L (3.80-5.40) m/uL Hgb 10.8 L (11.4-16.0) gm/dL Hct 33.0 L (34.0-46.0) % Plt Count 516 H (150-450) k/uL Sodium 134 L (137-145) mmol/L Glucose 120 H (74-99) mg/dL AST 196 H (14-36) U/L ALT 128 H (4-34) U/L Alkaline Phosphatase 247 H (38-126) U/L Total Protein 5.0 L (6.3-8.2) g/dL Albumin 2.8 L (3.5-5.0) g/dL Assessment and Plan (1) Ovarian cancer Narrative/Plan: According to my discussion with DRAW OPERATOR oncology, it was decided to proceed with chemotherapy, as it was felt based on the clinical picture, that she would require neoadjuvant treatment anyway. It had cycle 1 of carboplatin and Taxol yesterday which he tolerated well. She was given albumin along with the chemotherapy because of her prior issues with hypertension. - Continue to monitor counts and renal function. Chemotherapy is due in 3 weeks. - It was discussed with patient recurrence of ascites and still occur, and typically it may take 2 cycles at least before we see decrease in the amount of fluid assuming that the chemotherapy is effective. - Follow-up with DRAW OPERATOR oncology will be rescheduled as an outpatient. Current Visit: Yes Status: Acute Code(s): C56.9 - MALIGNANT NEOPLASM OF UNSPECIFIED OVARY SNOMED Code(s): 743001904 (2) Ascites Narrative/Plan: Abdomen is mildly distended today, but still quite soft. There doesn't appear to be significantly reaccumulate so far. Continue to monitor and repeat paracentesis prior to discharge if indicated. Patient will have a standing order as an outpatient to have paracentesis when necessary. Current Visit: Yes Status: Acute Priority: High Code(s): R18.8 - OTHER ASCITES SNOMED Code(s): 097703594 (3) Liver enzyme elevation Narrative/Plan: This is probably acute, due to hypotension causing a degree of shock liver. Chemotherapy effect is also possible. Patient is asymptomatic. Continue to monitor. Current Visit: Yes Status: Acute Code(s): R74.8 - ABNORMAL LEVELS OF OTHER SERUM ENZYMES SNOMED Code(s): 910755458
[2020-11-16] MEDS: ALPRAZolam 0.25 MG TAB PO PRN (17:52)
--- NOTE | 2020-11-16 19:13 | P.PN ---
Subjective HISTORY OF PRESENTING ILLNESS This is a pleasant 54-year-old female past medical history significant for new diagnosis 3 weeks ago for ovarian cancer with ascites requiring paracentesis and PE. She denies prior history of coronary artery disease and does not follow in the office with a industrial seamstress. We have been asked to see in consultation for cardiomyopathy. She was diagnosed earlier this month with ovarian cancer. She has not started treatment yet. She follows with Dr. Wilson. She presented to the hospital with symptoms of increasing abdominal size and discomfort. Since admission she has undergone a paracentesis on 2 separate occasions the first one with a 8.5L removed and the second with 2.9 L removed. Persistently throughout this admission she has been tachycardic with frequent PVCs. Telemetry tracings reveals sinus tachycardia with frequent PVCs and a 13 beat run of wide complex ventricular tachycardia noted last night. An echocardiogram was performed revealing severely impaired LV systolic function with ejection fraction less than 20% mild MR, mild TR and large pleural effusion noted. No pericardial effusion. Prior to this diagnosis the patient states she has been extremely active and healthy. She exercises on a daily basis. She rides a bike outside on trails for many miles per day and in the gallbladder she uses an indoor stationery spin bike. In fact she had her sister bring in free weights to the hospital so she could continue her exercise throughout her hospitalization. She denies ever having had exertional chest pain or shortness of breath. Currently she feels comfortable. Prior to her paracentesis she said her abdominal discomfort caused her to have to sit up for comfort. She was un able to lay completely flat. She denied specific orthopnea only that her stomach felt so full and heavy she couldn't lay flat due to the pressure. She underwent Mediport placement yesterday with plans to begin chemotherapy this morning. 11/16/2020 Patient seen and examined. She was started on Lopressor 12.5mg bid with HR's still elevated predominantly 90-120's. Denies any chest pain or pressure. Started chemo yesterday. Did have some left thigh numbness which she believes is positional. PHYSICAL EXAMINATION Blood pressure 93/61 heart rate 122 afebrile and maintaining oxygen saturation on room air. CONSTITUTIONAL: No apparent distress. HEENT: Head is normocephalic. Pupils are equal, round. Sclerae anicteric. Mucous membranes of the mouth are moist. No JVD. No carotid bruit. CHEST EXAMINATION: Lungs are clear to auscultation. No chest wall tenderness is noted on palpation or with deep breathing. HEART EXAMINATION: Regular rate and rhythm, tachycardic. S1, S2 heard. No murmurs, gallops or rub. ABDOMEN: Soft, nontender. +ascites, Positive bowel sounds. EXTREMITIES: 2+ peripheral pulses, no lower extremity edema and no calf tenderness. NEUROLOGIC EXAMINATION: Patient is awake, alert and oriented x3. ASSESSMENT Acute systolic heart failure Cardiomyopathy, unknown if ischemic or non-ischemic. Suspect non-ischemic Ovarian cancer, new diagnosis with malignant ascites. Chemotherapy scheduled to begin today. Sinus tachycardia, likely physiologic related to pain, anxiety, cancer. PLAN HR's appear elevated related to sinus mechanism. If remain elevated may consider Ivabridine. Ideally CHRISTIAN if her blood pressure will tolerate however will uptitrate BBlocker as able. Appears euvolemic although does have some abdominal fullness related to ascites. Objective - Vital Signs Vital signs: Vital Signs Temp 96.7 F L 11/16/20 15:45 Pulse 122 H 11/16/20 15:45 Resp 18 11/16/20 15:45 BP 93/61 11/16/20 15:45 Pulse Ox 96 11/16/20 15:45 Intake & Output 11/16/20 11/16/20 11/17/20 06:59 18:59 06:59 Intake Total 630 720 Output Total 1200 700 Balance -570 20 Weight 61.7 kg Intake: Intake, IV Titration 30 Amount Lactated Ringers 1,000 ml 30 @ 20 mls/hr IV .Q24H [facility] Rx#:[id number] Oral 600 720 Output: Urine 1200 700 Other: Voiding Method Toilet Toilet # Voids 1 - Labs CBC & Chem 7: 11/16/20 06:47 11/16/20 06:47 Labs: Abnormal Lab Results - Last 24 Hours (Table) 11/16/20 11/16/20 Range/Units 06:47 06:47 RBC 3.52 L (3.80-5.40) m/uL Hgb 10.8 L (11.4-16.0) gm/dL Hct 33.0 L (34.0-46.0) % Plt Count 516 H (150-450) k/uL Sodium 134 L (137-145) mmol/L Glucose 120 H (74-99) mg/dL AST 196 H (14-36) U/L ALT 128 H (4-34) U/L Alkaline Phosphatase 247 H (38-126) U/L Total Protein 5.0 L (6.3-8.2) g/dL Albumin 2.8 L (3.5-5.0) g/dL
[2020-11-16] MEDS: METOPROLOL TARTRATE 25 MG TAB PO SCH (20:35)
[2020-11-17] MEDS: ALPRAZolam 0.25 MG TAB PO PRN ×2 (00:23→20:54)
[2020-11-17] MEDS: ONDANSETRON 4 MG/2 ML VIAL IVP PRN ×4 (00:23→23:49)
[2020-11-17] MEDS: LACTATED RINGERS 1,000 ML IV SCH (06:54)
[2020-11-17 08:59] LABS: Basophils # (A) 0.1 k/uL (0-0.2); Basophils % (A) 1 %; Eosinophils # (A) 0.1 k/uL (0-0.7); Eosinophils % (A) 1 %; HCT 40.6 % (34.0-46.0); HGB 12.8 gm/dL (11.4-16.0); Hypochromasia Slight; Lymphocytes # (A) 1.2 k/uL (1.0-4.8); Lymphocytes % (A) 14 %; MCH 29.9 pg (25.0-35.0); MCHC 31.6 g/dL (31.0-37.0); MCV 94.7 fL (80.0-100.0); Mean Platelet Volume 6.7; Monocytes # (A) 0.2 k/uL (0-1.0); Monocytes % (A) 2 %; Neutrophils # (A) 6.7 k/uL (1.3-7.7); Neutrophils % (A) 81 %; Platelet Count 456 k/uL (150-450); RBC 4.28 m/uL (3.80-5.40); RDW 13.5 % (11.5-15.5); WBC 8.3 k/uL (3.8-10.6)
[2020-11-17 09:12] LABS: ALT 221 U/L (4-34); AST 368 U/L (14-36); African American GFR (CKD) >90 (>60 ml/min/1.73 sqM); Albumin 2.6 g/dL (3.5-5.0); Alkaline Phosphatase 264 U/L (38-126); Anion Gap 7 mmol/L; Blood Urea Nitrogen 15 mg/dL (7-17); Calcium 8.4 mg/dL (8.4-10.2); Carbon Dioxide 24 mmol/L (22-30); Chloride 100 mmol/L (98-107); Glucose 86 mg/dL (74-99); Magnesium 1.9 mg/dL (1.6-2.3); Non-African American GFR(CKD) >90 (>60 ml/min/1.73 sqM); Phosphorus 3.5 mg/dL (2.5-4.5); Potassium 4.8 mmol/L (3.5-5.1); Sodium 131 mmol/L (137-145); Total Bilirubin 0.8 mg/dL (0.2-1.3)
[2020-11-17] MEDS: METOPROLOL TARTRATE 25 MG TAB PO SCH ×2 (09:13→20:54)
[2020-11-17] MEDS: ENOXAPARIN 60 MG/0.6 ML SYRINGE SQ SCH ×2 (09:13→20:49)
[2020-11-17] MEDS: polyethylene glycoL 3350 17 GM POWD.PACK PO SCH (09:13)
--- NOTE | 2020-11-17 12:30 | P.PN ---
Subjective Progress Note Date: 11/17/20 the patient states that she feels somewhat fatigued, and mildly nauseous, but has not had any overt vomiting. Stools are somewhat loose. Appetite is fair. Objective - Vital Signs Vital signs: Vital Signs Temp 98.4 F 11/17/20 03:50 Pulse 112 H 11/17/20 03:50 Resp 16 11/17/20 03:50 BP 84/54 11/17/20 03:50 Pulse Ox 92 L 11/17/20 03:50 Intake & Output 11/16/20 11/17/20 11/17/20 18:59 06:59 18:59 Intake Total 720 460 240 Output Total 700 1050 800 Balance 20 -590 -560 Weight 62.9 kg Intake: Intake, IV Titration 60 Amount Lactated Ringers 1,000 ml 60 @ 20 mls/hr IV .Q24H [facility] Rx#:[id number] Oral 720 400 240 Output: Urine 700 1050 800 Other: Voiding Method Toilet Toilet # Voids 1 # Bowel Movements 1 - Constitutional General appearance: Present: no acute distress - EENT Eyes: Present: EOMI ENT: Present: hearing grossly normal, normal oropharynx - Respiratory Respiratory: bilateral: CTA - Cardiovascular Rhythm: regular Heart sounds: normal: S1, S2 - Gastrointestinal General gastrointestinal: Present: distended, soft - Integumentary Integumentary: Present: normal - Neurologic Neurologic: Present: CNII-XII intact - Psychiatric Psychiatric: Present: A&O x's 3, appropriate affect - Labs CBC & Chem 7: 11/17/20 08:36 11/17/20 08:36 Labs: Abnormal Lab Results - Last 24 Hours (Table) 11/17/20 11/17/20 Range/Units 08:36 08:36 Plt Count 456 H (150-450) k/uL Sodium 131 L (137-145) mmol/L AST 368 H (14-36) U/L ALT 221 H (4-34) U/L Alkaline Phosphatase 264 H (38-126) U/L Total Protein 5.0 L (6.3-8.2) g/dL Albumin 2.6 L (3.5-5.0) g/dL Assessment and Plan (1) Ovarian cancer Narrative/Plan: patient is day #3 of her first cycle of carboplatin and Taxol. So far there does not appear to be any untoward side effects. Continue to monitor with labs and physical exam. Resuming discharge in the next 1 or 2 days, follow-up in the office late next week for follow-up blood draw. - The patient was advised that we will likely plan on at least 3-4 cycles prior to consideration of surgery. In addition for surgery, the patient would need her cardiac status improved anyway. Current Visit: Yes Status: Acute Code(s): C56.9 - MALIGNANT NEOPLASM OF UNSPECIFIED OVARY SNOMED Code(s): 240639711 (2) Ascites Narrative/Plan: there appears to be further increase in ascites today, though abdomen is still not tense. Consider paracentesis tomorrow. Patient also has a standing order for paracentesis as an outpatient Current Visit: Yes Status: Acute Priority: High Code(s): R18.8 - OTHER ASCITES SNOMED Code(s): 135957439 (3) Liver enzyme elevation Narrative/Plan: for the liver enzyme elevation is noted today. It was discussed with the patient that this most likely represents ischemia, given her hypotensive episodes, and/or chemotherapy effect. Check ultrasound to rule out obstruction. If negative continue to follow, with the anticipation that this will improve with improvement in her cardiovascular parameters, and increasing time from chemotherapy Current Visit: Yes Status: Acute Code(s): R74.8 - ABNORMAL LEVELS OF OTHER SERUM ENZYMES SNOMED Code(s): 482672791
--- NOTE | 2020-11-17 13:27 | P.PN ---
Subjective Progress Note Date: 11/17/20 (delayed charting seen at 0930) Principal diagnosis: abdominal pain and distension Patient is a 54-year-old female with recently diagnosed ovarian cancer, chronic low back pain, seasonal ALLERGIES, and asthma who presented to the ER secondary to increased abdominal pain and distention. She was initially admitted here from 10/28 to 10/31 where she was discovered to have ovarian cancer and a pulmonary embolism. She has been taking Eliquis at home. On arrival to the ER this time she was found to have significant abdominal ascites secondary to ovarian cancer with metastasis. She is admitted for further management. Her Eliquis was held. She was seen by oncology who initially felt to be best served by urgent evaluation from an specimen technician oncology. She is an appointment with Dr. Steen on 11/15. She underwent paracentesis with removal of 8.5 L on 11/11. Patient states almost immediately recurred. Initiation for transfer to, [facility] was started on 11/[address] Steen accepted the patient, currently awaiting financial clearance. Had port placed on 11/14 without complications. Heart rate has been varying 130 to 150 per nursing, BP stable but low and echo ordered, ef <20%, cardio consult placed and oncology notified. She underwent para on 11/14 with removal of 2.6 L of fluid and no albumin indicated. Stated on metoprolol with improving HR and stable BP. She had chemo on 11/15/20. Her labs demonstrated worsening liver function. Patient seen seen and examined at bedside. She is feeling okay today. No chest pain shortness breath lightheaded or dizziness. No nausea or vomiting. [place] slightly more fatigued last night. Feels as though she is getting some more abdominal distention. General: Ill appearing, no distress, appears at stated age, temporal and buccal mucosal wasting Derm: warm, dry Head: atraumatic, normocephalic, symmetric Eyes: EOMI, no lid lag, anicteric sclera Mouth: no lip lesion, mucus membranes moist Cardiovascular: S1S2 reg, no murmur, positive posterior tibial pulse bilateral, Lungs: CTA bilateral, no rhonchi, no rales , no accessory muscle use Abdominal: soft,+ distended, nontender to palpation, no guarding, no ap preciable organomegaly Ext: no gross muscle atrophy, trace edema, no contractures Neuro: CN II-XI grossly intact, no focal neuro deficits Psych: Alert, oriented, appropriate affect Malignant ascities, likely Ovarian CA vs primary peritoneal carcinoma on recent path, CA 125> 12,000 - s/p port 3/4 - Last para 3/4 - chemo 3/5- carboplatin and taxol Newly discovered systolic cardiomyopathy, EF < 20%, sinus tachycardia - Cardio recs appreciated: metoprolol increased - follow CR closely with carboplatin prior to CHRISTIAN starting - undetermined etiology - Telemetry Recent Pulmonary embolism -Has been transitioned from Eliquis to Lovenox incase additional procedures needed. Plan on discharge Hyponatremia - improving - monitor closely - repeat bmp in AM Transaminits, worsening - likely due to chemo - repeat in AM - liver normal on CT oct 2020 Anemia, thrombocytosis - reactive and acute blood loss - follow CBC Constipation -mirlax DVT prophylaxis:Lovenox Discussed with: Patient, nursing Anticipated discharge:in AM if LFTs and BP stable Anticipated discharge place: home A total of 25 minutes was spent on the care of this complex patient more than 50% of the time was spent in counseling and care coordination. Objective - Vital Signs Vital signs: Vital Signs Temp 96.7 F L 11/17/20 08:45 Pulse 103 H 11/17/20 11:40 Resp 16 11/17/20 11:40 BP 90/58 11/17/20 11:40 Pulse Ox 94 L 11/17/20 11:40 Intake & Output 11/16/20 11/17/20 11/17/20 18:59 06:59 18:59 Intake Total 720 460 240 Output Total 700 1050 800 Balance 20 -590 -560 Weight 62.9 kg Intake: Intake, IV Titration 60 Amount Lactated Ringers 1,000 ml 60 @ 20 mls/hr IV .Q24H [facility] Rx#:[id number] Oral 720 400 240 Output: Urine 700 1050 800 Other: Voiding Method Toilet Toilet # Voids 1 # Bowel Movements 1 - Labs CBC & Chem 7: 11/17/20 08:36 11/17/20 08:36 Labs: Abnormal Lab Results - Last 24 Hours (Table) 11/17/20 11/17/20 Range/Units 08:36 08:36 Plt Count 456 H (150-450) k/uL Sodium 131 L (137-145) mmol/L AST 368 H (14-36) U/L ALT 221 H (4-34) U/L Alkaline Phosphatase 264 H (38-126) U/L Total Protein 5.0 L (6.3-8.2) g/dL Albumin 2.6 L (3.5-5.0) g/dL
--- NOTE | 2020-11-17 17:02 | P.PN ---
Progress Note - Text Progress Note Date: 11/17/20 Port site is clean. Patient will continue receive chemotherapy.
[2020-11-18 05:51] VITALS: RESP 16
[2020-11-18 08:24] LABS: HCT 38.9 % (34.0-46.0); HGB 12.7 gm/dL (11.4-16.0); MCH 30.8 pg (25.0-35.0); MCHC 32.5 g/dL (31.0-37.0); MCV 94.7 fL (80.0-100.0); Mean Platelet Volume 7.2; Platelet Count 422 k/uL (150-450); RBC 4.11 m/uL (3.80-5.40); RDW 13.2 % (11.5-15.5); WBC 7.1 k/uL (3.8-10.6)
[2020-11-18 08:37] LABS: ALT 145 U/L (4-34); AST 149 U/L (14-36); African American GFR (CKD) >90 (>60 ml/min/1.73 sqM); Albumin 2.5 g/dL (3.5-5.0); Alkaline Phosphatase 253 U/L (38-126); Anion Gap 6 mmol/L; Blood Urea Nitrogen 18 mg/dL (7-17); Calcium 8.5 mg/dL (8.4-10.2); Carbon Dioxide 24 mmol/L (22-30); Chloride 99 mmol/L (98-107); Glucose 102 mg/dL (74-99); Non-African American GFR(CKD) >90 (>60 ml/min/1.73 sqM); Potassium 4.7 mmol/L (3.5-5.1); Sodium 129 mmol/L (137-145); Total Bilirubin 0.8 mg/dL (0.2-1.3); Total Protein 4.7 g/dL (6.3-8.2)
[2020-11-18] MEDS: METOPROLOL TARTRATE 25 MG TAB PO SCH (08:50)
[2020-11-18] MEDS: polyethylene glycoL 3350 17 GM POWD.PACK PO SCH (08:51)
[2020-11-18] MEDS: ENOXAPARIN 60 MG/0.6 ML SYRINGE SQ SCH (08:51)
[2020-11-18 08:58] VITALS: TEMP 97.7
--- NOTE | 2020-11-18 09:58 | US ---
EXAMINATION TYPE: US abdomen limited DATE OF EXAM: 11/18/2020 COMPARISON: 11/14/2020 CLINICAL HISTORY: 54-year-old female assess for fluid pocket for paracentesis. Technique: Multiple sonographic images of the 4 abdominal quadrants for assessment of ascites. FINDINGS: Scattered moderate abdominal ascites visualized. IMPRESSION: Scattered moderate abdominal ascites fluid.
[2020-11-18 10:46] VITALS: BP 80/51; PULSE 94
--- NOTE | 2020-11-18 12:08 | P.DS ---
Providers Date of admission: 11/09/20 12:54 Expected date of discharge: 11/18/20 Attending physician: Geovany Restrepo Consults: 11/09/20 12:53 Consult Physician Urgent Consulting Provider: Pantera Wilson Consult Reason/Comments: Ovarian cancer Do you want consulting provider notified?: Yes 11/13/20 14:14 Consult Physician Routine Consulting Provider: Rehan Sheridan Consult Reason/Comments: port placement Do you want consulting provider notified?: Already Contacted 11/14/20 16:11 Consult Physician Routine Consulting Provider: Shahram Centeno Consult Reason/Comments: cardiomyopathy Do you want consulting provider notified?: Yes Primary care physician: Stated None Hospital Course: Discharge Diagnosis: Malignant Ascities due to ovarian CT Newly discovered systolic cardiomyopathy, EF < 20%, sinus tachycardia Recent Pulmonary Embolism Hyponatremia Transaminits, worsening Anemia, thrombocytosis Constipation Hospital Course: Patient is a 54-year-old female with recently diagnosed ovarian cancer, chronic low back pain, seasonal ALLERGIES, and asthma who presented to the ER secondary to increased abdominal pain and distention. She was initially admitted here from 10/28 to 10/31 where she was discovered to have ovarian cancer and a pulmonary embolism. She has been taking Eliquis at home. On arrival to the ER this time she was found to have significant abdominal ascites secondary to ovarian cancer with metastasis. She is admitted for further management. Her Eliquis was held. She was seen by oncology who initially felt to be best served by urgent evaluation from an rn peritoneal dialysis oncology. She is an appointment with Dr. Steen on 11/15. She underwent paracentesis with removal of 8.5 L on 11/11. Patient states almost immediately recurred. Initiation for transfer to, [facility] was started on 11/[address] Steen accepted the patient, currently awaiting financial clearance. Had port placed on 11/14 without complications. Heart rate has been varying 130 to 150 per nursing, BP stable but low and echo ordered, ef <20%, cardio consult placed and oncology notified. She underwent para on 11/14 with removal of 2.6 L of fluid and no albumin indicated. Stated on metoprolol with improving HR and stable BP. She had chemo on 11/15/20. Her labs demonstrated worsening liver function, which began to improve without intervention. She was doing well and determined stable for discharge home. We attempted to have paracentesis on 11/18 but her blood pressure was to low and radiology deferred. She was asymptomatic from her low BP and was up and ambulating without dizziness or shortness of breath. She will continue on metoprolol at home. She was also given an rx for zofran in the case or nausea. Patient seen and examined at bedside. Feeling well, no chest pain, SOB, nausea, Vital signs reviewed and stable. General: non toxic, no distress, appears at stated age, loss of buccal and temporal fat pad. Derm: warm, dry, Head: atraumatic, normocephalic, symmetric Eyes: EOMI, no lid lag, anicteric sclera Mouth: no lip lesion, mucus membranes moist Cardiovascular: S1S2 reg, no murmur, positive posterior tibial pulse bilateral, Lungs: Ronchi right base , no accessory muscle use Abdominal: soft, + distended, nontender to palpation, no guarding, no appreciable organomegaly Ext: no gross muscle atrophy, no edema, no contractures Neuro: CN II-XI grossly intact, no focal neuro deficits Psych: Alert, oriented, appropriate affect A total of 45 minutes of time were spent preparing this complex discharge summary. Patient Condition at Discharge: Stable Plan - Discharge Summary Discharge Rx Participant: Yes New Discharge Prescriptions: New polyethylene glycoL 3350 [Miralax] 17 gm PO DAILY #0 powd.pack Ondansetron [Zofran] 4 mg PO Q8HR PRN #20 tab PRN Reason: Nausea Continue Apixaban [Eliquis Starter Pack (for VTE)] See Taper PO BID Metoprolol Tartrate [Lopressor] 25 mg PO BID #60 tab Discharge Medication List Apixaban [Eliquis Starter Pack (for VTE)] See Taper PO BID 11/09/20 [History] Metoprolol Tartrate [Lopressor] 25 mg PO BID #60 tab 11/18/20 [Rx] Ondansetron [Zofran] 4 mg PO Q8HR PRN #20 tab 11/18/20 [Rx] polyethylene glycoL 3350 [Miralax] 17 gm PO DAILY #0 powd.pack 11/18/20 [Rx] Follow up Appointment(s)/Referral(s): None,Stated [Primary Care Provider] - 1-2 days Patient Instructions/Handouts: How to Care for Your Implanted Venous Access Port (DC), How to Care for Your Implanted Venous Access Port (GEN), Chemo Induced Nausea and Vomiting (GEN), Intravenous Chemotherapy (GEN) Activity/Diet/Wound Care/Special Instructions: Activity: as tolerated Diet: regular Special Instructions: Outpatient paracentesis scheduled for , November 21 @0900 - hold Eliquis on Monday 11/20 and 11/21 - january resume after paracentesis Bioteine mouth wash Discharge Disposition: HOME SELF-CARE
--- NOTE | 2020-11-18 12:39 | P.PN ---
Subjective Progress Note Date: 11/18/20 CHIEF COMPLAINT: Ovarian cancer HISTORY OF PRESENT ILLNESS: Patient is status post port a catheter placement for chemotherapy. Patient did start chemotherapy during this admission. She is tolerating regular diet. Denies any nausea or vomiting. PHYSICAL EXAM: VITAL SIGNS: Reviewed. GENERAL: Well-developed in no acute distress. HEENT: No sclera icterus. Extraocular movements grossly intact. Moist buccal mucosa. Head is atraumatic, normocephalic. ABDOMEN: Soft. Distended with ascites. Nontender. NEUROLOGIC: Alert and oriented. Cranial nerves II through XII grossly intact. SKIN: Port on right-sided chest. area is clean dry and intact. ASSESSMENT: 1. Ovarian cancer patient is status post port a catheter placement for chemotherapy PLAN: -Continue supportive care -Okay to discharge from surgical standpoint Physician Medic Technician note has been reviewed by physician. Signing provider agrees with the documented findings, assessment, and plan of care. Objective - Vital Signs Vital signs: Vital Signs Temp 97.7 F 11/18/20 08:57 Pulse 94 11/18/20 10:45 Resp 16 11/18/20 10:45 BP 80/51 11/18/20 10:45 Pulse Ox 98 11/18/20 10:45 Intake & Output 11/17/20 11/18/20 11/18/20 18:59 06:59 18:59 Intake Total 360 Output Total 1200 500 Balance -840 -500 Weight 78.5 kg Intake: Oral 360 Output: Urine 1200 500 Other: Voiding Method Toilet Toilet Toilet - Labs CBC & Chem 7: 11/18/20 07:39 11/18/20 07:39 Labs: Abnormal Lab Results - Last 24 Hours (Table) 11/18/20 Range/Units 07:39 Sodium 129 L (137-145) mmol/L BUN 18 H (7-17) mg/dL Glucose 102 H (74-99) mg/dL AST 149 H (14-36) U/L ALT 145 H (4-34) U/L Alkaline Phosphatase 253 H (38-126) U/L Total Protein 4.7 L (6.3-8.2) g/dL Albumin 2.5 L (3.5-5.0) g/dL
--- NOTE | 2020-11-18 15:48 | P.PN ---
Subjective Progress Note Date: 11/18/20 Principal diagnosis: Malignant Ascites, ovarian cancer Patient is currently denying any significant complaints, tolerating oral intake, she has had a bowel movement. She had her first cycle of chemotherapy and so far she has tolerated well. She has her prescription for antiemetic. Her LFTs were elevated posttreatment but, they have improved today Objective - Vital Signs Vital signs: Vital Signs Temp 97.7 F 11/18/20 08:57 Pulse 94 11/18/20 10:45 Resp 16 11/18/20 10:45 BP 80/51 11/18/20 10:45 Pulse Ox 98 11/18/20 10:45 Intake & Output 11/17/20 11/18/20 11/18/20 18:59 06:59 18:59 Intake Total 360 Output Total 1200 500 500 Balance -840 -500 -500 Weight 78.5 kg Intake: Oral 360 Output: Urine 1200 500 500 Other: Voiding Method Toilet Toilet Toilet # Bowel Movements 1 - Constitutional General appearance: Present: cooperative, no acute distress, thin - EENT Eyes: Present: anicteric sclerae, EOMI ENT: Present: hearing grossly normal, normal oropharynx - Respiratory Respiratory: bilateral: CTA (diminished bases) - Cardiovascular Heart sounds: normal: S1, S2 - Peripheral edema leg Peripheral Edema: bilateral: Trace - Gastrointestinal Gastrointestinal Comment(s): firm to touch, distant bowel sounds are heard General gastrointestinal: Present: distended - Integumentary Integumentary: Present: pale - Neurologic Neurologic: Present: CNII-XII intact - Musculoskeletal Musculoskeletal: Present: generalized weakness, strength equal bilaterally - Psychiatric Psychiatric: Present: A&O x's 3, appropriate affect, intact judgment & insight - Labs CBC & Chem 7: 11/18/20 07:39 11/18/20 07:39 Labs: Abnormal Lab Results - Last 24 Hours (Table) 11/18/20 Range/Units 07:39 Sodium 129 L (137-145) mmol/L BUN 18 H (7-17) mg/dL Glucose 102 H (74-99) mg/dL AST 149 H (14-36) U/L ALT 145 H (4-34) U/L Alkaline Phosphatase 253 H (38-126) U/L Total Protein 4.7 L (6.3-8.2) g/dL Albumin 2.5 L (3.5-5.0) g/dL - Imaging and Cardiology US - abdomen: report reviewed Assessment and Plan (1) Malignant ascites Narrative/Plan: Ascites is going to be recurrent. Patient is status post her first cycle of treatment. Hopefully, the frequency of recurrence declines and the amount of fluid accumulation decreases with each treatment. Patient has a paracentesis scheduled in 3 days outpatient. She has a standing order for weekly paracentesis. Patient does know that she needs to hold her dose of eliquis day before and the morning of procedure, resume the night of procedure Current Visit: Yes Status: Acute Priority: High Code(s): R18.0 - MALIGNANT ASCITES SNOMED Code(s): 129257805 (2) Liver enzyme elevation Narrative/Plan: 2/2 chemo and hypotension. Improving today. Ongoing monitoring Current Visit: Yes Status: Acute Priority: High Code(s): R74.8 - ABNORMAL LEVELS OF OTHER SERUM ENZYMES SNOMED Code(s): 083335297 (3) Ovarian cancer Narrative/Plan: Medical oncology and COUNCILPERSON oncology and discussed the case. Plan is for neoadjuvant treatment. Patient is not a surgical candidate right away due to ejection fraction of about 20%. She is on meds for the same Follow-up one week status post first cycle of carbo/taxol, appt in discharge Current Visit: Yes Status: Acute Priority: High Code(s): C56.9 - MALIGNANT NEOPLASM OF UNSPECIFIED OVARY SNOMED Code(s): 728113584 (4) Pulmonary emboli Narrative/Plan: Cont eliquis. Hold day before and morning of paracentesis, resume evening of. Bleeding precautions discussed Current Visit: Yes Status: Acute Priority: High Code(s): I26.99 - OTHER PULMONARY EMBOLISM WITHOUT ACUTE COR PULMONALE SNOMED Code(s): 38653890
--- NOTE | 2020-11-22 08:55 | P.OP ---
Date of Procedure: 11/14/20 Preoperative Diagnosis: Ovarian cancer Postoperative Diagnosis: Ovarian cancer Procedure(s) Performed: Right subclavian Port-A-Cath Anesthesia: MAC Surgeon: Rehan Sheridan Estimated Blood Loss (ml): 5 Pathology: none sent Condition: stable Disposition: PACU Description of Procedure: WPROCEDURE: The patient was placed on the operating table in the supine position. She received MAC anesthetic. The [right] chest was prepped and draped in the usual sterile fashion. The skin underneath the right clavicle was anesthetized with 1% Xylocaine and using Seldinger technique, the right subclavian vein was cannulized. The wire was placed through the needle and positioned under fluoroscopy. Next, the needle was removed and the port site was anesthetized with 1% Xylocaine. Skin was incised with #15 blade and port pocket was made using blunt and sharp dissection. Following this the catheter was attached to the sport and the port was flushed. The port was positioned into the pocket site and was secured with 3-0 Vicryl suture. The catheter was then brought out through the wire site and then the dilator sheath was placed over the wire and the dilator and the wire were removed. The catheter was placed through the sheath and the sheath was removed. The port was flushed with hep-lock solution. Skin was closed with interrupted 3-0 Vicryl sutures. Steri-Strips were applied. The patient tolerated the procedure well. The patient was sent to recovery room for chest x-ray after the procedure.
== END 2020-11-18 15:58 | disposition home or self-care (01) | DRG 754 ==
LOC: EC 10:53 → 3SCARD 12:54
PROVIDERS: ADMIT Internal Medicine; ATTEND Internal Medicine
PROC: 0W9G3ZZ Drainage of Peritoneal Cavity, Percutaneous Approach (ICD-10-PCS; principal; 2020-11-11)
PROC: 0W9G3ZZ Drainage of Peritoneal Cavity, Percutaneous Approach (ICD-10-PCS; 2020-11-14)
PROC: 0JH63WZ Insertion of Totally Implantable Vascular Access Device into Chest Subcutaneous Tissue and Fascia, Percutaneous Approach (ICD-10-PCS; 2020-11-14)
PROC: 02HV33Z Insertion of Infusion Device into Superior Vena Cava, Percutaneous Approach (ICD-10-PCS; 2020-11-14)
PROC: 3E04305 Introduction of Other Antineoplastic into Central Vein, Percutaneous Approach (ICD-10-PCS; 2020-11-15)
DX: C56.9 Malignant neoplasm of unspecified ovary (principal); K72.00 Acute and subacute hepatic failure without coma; I50.21 Acute systolic (congestive) heart failure; R18.0 Malignant ascites; I47.2 Ventricular tachycardia; I42.9 Cardiomyopathy, unspecified; E87.1 Hypo-osmolality and hyponatremia; I95.9 Hypotension, unspecified; I11.0 Hypertensive heart disease with heart failure; Z20.822 Contact with and (suspected) exposure to COVID-19; G89.29 Other chronic pain; M41.9 Scoliosis, unspecified; J45.909 Unspecified asthma, uncomplicated; F41.9 Anxiety disorder, unspecified; K59.00 Constipation, unspecified; R68.81 Early satiety; I49.3 Ventricular premature depolarization; D63.0 Anemia in neoplastic disease; D18.03 Hemangioma of intra-abdominal structures; T45.1X5A Adverse effect of antineoplastic and immunosuppressive drugs, initial encounter; Z71.3 Dietary counseling and surveillance; Z79.01 Long term (current) use of anticoagulants; Z79.899 Other long term (current) drug therapy; Z98.890 Other specified postprocedural states; Z86.711 Personal history of pulmonary embolism; Z87.891 Personal history of nicotine dependence; Z82.49 Family history of ischemic heart disease and other diseases of the circulatory system; Z80.0 Family history of malignant neoplasm of digestive organs
CPT/HCPCS: 36415; 49083; 71045; 71046; 76705; 77001; 80048; 80053; 81001; 83605; 83690; 83735; 84100; 84443; 84484; 85025; 85027; 85610; 85730; 87635; 93005; 93306; 96361; 96374; 96375; 99285

== ENCOUNTER 2020-11-21 08:56 | Day surgery (SDC) | payer OTHER ==
[2020-11-21 09:29] VITALS: RESP 18; TEMP 97.9
[2020-11-21 09:38] LABS: Mean Platelet Volume 7.3; Platelet Count 430 k/uL (150-450)
[2020-11-21 09:47] LABS: INR 0.9 (<1.2); Prothrombin Time 9.8 sec (9.0-12.0)
[2020-11-21] MEDS: ALBUMIN HUMAN 25% 50 ML in EMPTY BAG 1 BAG IVPB SCH ×2 (12:14→12:29)
[2020-11-21 13:28] VITALS: BP 103/66; PULSE 134
--- NOTE | 2020-11-21 13:53 | US ---
EXAMINATION TYPE: US paracentesis abd w/image DATE OF EXAM: 11/21/2020 COMPARISON: NONE HISTORY: Ascites. PROCEDURE: Maximal barrier technique was utilized. The skin overlying a suitable pocket of fluid was localized with ultrasound and the overlying skin was prepped and draped. Ultrasound was utilized with sterile technique. Lidocaine was used for local anesthesia and a skin salome made with a scalpel. Catheter was advanced under direct ultrasound guidance into a suitable pocket of fluid and approximately 5.6 liter s of serous fluid were removed. Catheter was withdrawn and hemostasis achieved. There is no immedia te complication; the patient is discharged in stable condition. IMPRESSION: STATUS POST ULTRASOUND GUIDED PARACENTESIS FOR PALLIATION OF ASCITES. THIS PROCEDURE WA S PERFORMED BY THE UNDERSIGNED.
== END 2020-11-21 13:00 | disposition home or self-care (01) ==
LOC: RADPROMAIN 08:56
PROVIDERS: ATTEND Internal Medicine Hematology & Oncology
DX: R18.8 Other ascites (principal)
CPT/HCPCS: 85049; 85610; 49083; P9047

== ENCOUNTER 2020-11-28 11:43 | Day surgery (SDC) | payer SELFPAY ==
[2020-11-28 12:26] VITALS: TEMP 98.4
[2020-11-28 12:27] LABS: Mean Platelet Volume 6.9; Platelet Count 423 k/uL (150-450)
[2020-11-28 12:33] LABS: Prothrombin Time 10.4 sec (9.0-12.0)
[2020-11-28] MEDS: ALBUMIN HUMAN 25% 50 ML in EMPTY BAG 1 BAG IVPB SCH ×3 (13:20→13:54)
[2020-11-28 14:33] VITALS: BP 116/78; PULSE 116; RESP 16
--- NOTE | 2020-11-28 14:37 | US ---
Ultrasound-guided paracentesis. DATE OF EXAM: 11/28/2020 CLINICAL HISTORY: Ascites The procedure was discussed with the patient. The risks, complications, benefits, and alternatives we re discussed and any questions were answered. Informed consent was obtained. The patient was placed s upine on the ultrasound table and prepped and draped in the usual sterile fashion. All elements of maximal barrier technique were utilized. Under ultrasound guidance, access into the right lower quadrant was obtained, via the paracentesis catheter system and direct ultrasound guidanc e. Approximately 2.5 liters of bloody serous fluid was removed. The patient was stable throughout the pr ocedure and remained stable upon discharge from Department of Radiology. IMPRESSION: Successful paracentesis under ultrasound guidance.
== END 2020-11-28 14:20 | disposition home or self-care (01) ==
LOC: RADPROMAIN 11:43
PROVIDERS: ATTEND Internal Medicine Hematology & Oncology
DX: R18.8 Other ascites (principal)
CPT/HCPCS: 85049; 85610; 36415; 49083; P9047; J1642

== ENCOUNTER 2020-12-05 12:04 | Day surgery (SDC) | payer OTHER ==
[2020-12-05] MEDS ORDERED: ALBUMIN HUMAN 25% 50 ML in EMPTY BAG 1 BAG IVPB SCH (12:15)
--- NOTE | 2020-12-05 12:57 | US ---
EXAMINATION TYPE: US abdomen limited DATE OF EXAM: 12/05/2020 COMPARISON: 11/28/2020 CLINICAL HISTORY: malignant ascites. Hx James. Check for fluid for paracentesis today. Patient stat es she does not feel full. RLQ and LLQ scanned. Ascites visualized. No prominent pocket for paracentesis seen for today. IMPRESSION: As above
== END 2020-12-05 12:44 | disposition home or self-care (01) ==
LOC: RADPROMAIN 12:04
PROVIDERS: ATTEND Internal Medicine Hematology & Oncology
DX: R18.0 Malignant ascites (principal); Z53.8 Procedure and treatment not carried out for other reasons
CPT/HCPCS: 76705

== ENCOUNTER 2020-12-19 11:50 | Day surgery (SDC) | payer OTHER ==
[2020-12-19 12:32] VITALS: BP 109/64; PULSE 98; RESP 16; TEMP 98.4
--- NOTE | 2020-12-19 13:44 | US ---
Ultrasound-guided paracentesis DATE OF EXAM: 12/19/2020 CLINICAL HISTORY: Ascites Patient presented for paracentesis. There is only a small amount of fluid in the patient wished to de osmin the procedure. IMPRESSION: 1. Deferred ultrasound guided paracentesis.
== END 2020-12-19 12:41 | disposition home or self-care (01) ==
LOC: RADPROMAIN 11:50
PROVIDERS: ATTEND Nurse Practitioner Adult Health
DX: R18.0 Malignant ascites (principal); Z53.8 Procedure and treatment not carried out for other reasons
CPT/HCPCS: 76604

== ENCOUNTER → 2021-01-01 | Outpatient (CLI) | payer OTHER ==
[2021-01-01 14:28] LABS: African American GFR (CKD) >90 (>60 ml/min/1.73 sqM); Blood Urea Nitrogen 18 mg/dL (7-17); Non-African American GFR(CKD) >90 (>60 ml/min/1.73 sqM)
--- NOTE | 2021-01-01 16:09 | CT ---
EXAMINATION TYPE: CT ChestAbdPelvis w con DATE OF EXAM: 01/01/2021 COMPARISON: CTA chest October 30, 2020. CT abdomen and pelvis October 28, 2020. HISTORY: Follow up ovarian cancer CT DLP: 564.3 mGycm. Automated Exposure Control for Dose Reduction was Utilized. CONTRAST: CT scan of the thorax, abdomen and pelvis is performed with IV Contrast, patient injected with 100 mL of Isovue 300. FINDINGS: LUNGS: An azygos lobe/fissure is redemonstrated. The lungs remain grossly clear, there is no concerni ng new parenchymal mass or nodule identified. There is no pleural effusion or pneumothorax seen. T he tracheobronchial tree is patent. MEDIASTINUM: There are no new greater than 1 cm noncalcified hilar or mediastinal lymph nodes. Promi nent but calcified right hilar lymph nodes noted. No pericardial effusion is seen. Heart size upper limits of normal. There is mild to moderate left ventricular dilatation noted. OTHER: There is new right Subclavian Mediport catheter terminates in SVC LIVER/GB: Tiny hypodense focus posterior right hepatic lobe axial image 63 is too small to further ch aracterize. Contracted gallbladder. PANCREAS: No significant abnormality is seen. SPLEEN: Scattered calcifications throughout the spleen consistent with product of old granulomatous d isease. ADRENALS: No significant abnormality is seen. KIDNEYS: Symmetric cortical medullary uptake and excretion from both kidneys without hydronephrosis s een bilaterally. Roughly 1.0 cm thin-walled cyst left kidney midpole level laterally series 5 image 3 5 is noted. BOWEL: Oral contrast reaches level of the cecum. There is no suspicious small or large bowel dilatati on. Moderate 2 severe irregular wall thickening involving the right colon and cecum is identified on current study. There is moderate wall thickening in the proximal transverse colon just below the live r image 15 on current study contiguous with the cecum. Poor distention of the sigmoid colon with mode rate wall thickening. GENITAL ORGANS: Anteverted uterus redemonstrated. Just superior to uterus there is better visualizati on ovarian structures. Left ovary is smaller with 2.6 cm thin-walled cyst or cystic lesion axial imag e 104 anteriorly. Right ovary is enlarged in size with complex cystic lesion likely having right peripheral solid compo nent measuring 8.8 x 5.9 cm axial image 104. LYMPH NODES: No greater than 1cm abdominal or pelvic lymph nodes are appreciated. OSSEOUS STRUCTURES: Multilevel facet arthropathy in mid to lower lumbar spine.. OTHER: Small amount of intra-abdominal and pelvic ascites significantly improved from prior study. Pe ritoneal carcinomatosis is less prominent than prior exam. Prominent residual tissue is noted anterio rly just below requisition sheet. There is involvement in the right lower peritoneal ascites for refe rence axial image 78 noted.. IMPRESSION: Significantly improved ascites and peritoneal carcinomatosis. Abnormal appearance to righ t ovary likely origin of the neoplasm. No significant wall thickening in the right colon into transve rse colon raises concern for colitis, correlate clinically. No new metastatic disease identified. .
== END | disposition home or self-care (01) ==
LOC: RADPROMAIN 13:29
PROVIDERS: ATTEND Internal Medicine Hematology & Oncology
DX: C78.6 Secondary malignant neoplasm of retroperitoneum and peritoneum (principal); C56.1 Malignant neoplasm of right ovary; R18.8 Other ascites
CPT/HCPCS: 82565; 84520; 71260; 74177; J1642; Q9967

== ENCOUNTER → 2021-05-28 | Outpatient (CLI) | payer OTHER ==
--- NOTE | 2021-05-29 09:48 | CT ---
EXAMINATION TYPE: CT ChestAbdPelvis w con DATE OF EXAM: 05/28/2021 COMPARISON: Most recent CT January 01, 2021 and older studies. HISTORY: f/u ovarian ca CT DLP: 574.8 mGycm. Automated Exposure Control for Dose Reduction was Utilized. CONTRAST: CT scan of the thorax, abdomen and pelvis is performed with oral and with IV Contrast, patient inject ed with 100 mL of Isovue 300. FINDINGS: FINDINGS: LUNGS: An azygos lobe/fissure is redemonstrated. The lungs remain grossly clear, there is no concerni ng new parenchymal mass or nodule identified. There is no pleural effusion or pneumothorax seen. T he tracheobronchial tree is patent. Mild bibasilar linear scarring and/or atelectasis is again seen MEDIASTINUM: There are no new greater than 1 cm noncalcified hilar or mediastinal lymph nodes. Promi nent but calcified right hilar lymph nodes redemonstrated. No pericardial effusion is seen. Heart si ze stable and upper limits of normal. There is mild to moderate left ventricular dilatation is redemo nstrated. OTHER: There is stable right Subclavian Mediport catheter terminating in SVC LIVER/GB: Tiny hypodense focus posterior right hepatic lobe axial image 62 is stable and too small to further characterize favored benign. PANCREAS: No significant abnormality is seen. SPLEEN: Scattered calcifications throughout the spleen consistent with product of old granulomatous d isease. ADRENALS: No significant abnormality is seen. KIDNEYS: Symmetric cortical medullary uptake and excretion from both kidneys without hydronephrosis s een bilaterally. Roughly 1.0 cm thin-walled cyst left kidney midpole level laterally series 7 image 2 5 is redemonstrated. BOWEL: Oral contrast and does not reach level of colon making evaluation of bowel is suboptimal. Madelaine ent also has very little intra-abdominal fat making evaluation suboptimal There is no suspicious smal l or large bowel dilatation. Improved areas of wall thickening on current study. Mild wall thickening in the sigmoid colon left pelvis near axial image 3 remains present for reference. GENITAL ORGANS: Uterus now surgically absent. Both ovaries now not clearly seen suspected surgically removed. Surgical clips in pelvis now identified. New Anterior vertical skin and subcutaneous scarring noted. LYMPH NODES: No new greater than 1cm abdominal or pelvic lymph nodes are appreciated. OSSEOUS STRUCTURES: Multilevel facet arthropathy in mid to lower lumbar spine.. Moderate disc space n arrowing and vacuum disc phenomenon L4-L5 and L5-S1 levels OTHER: Small amount of intra-abdominal and pelvic ascites resolved from prior study. Peritoneal carci nomatosis now is not clearly identified inferior to the liver anteriorly and anterior to bowel loops in the upper to mid abdomen. IMPRESSION: Interval hysterectomy and bilateral oophorectomy. Interval resolution of abdominal and pe lvic ascites. Previous visualized peritoneal carcinomatosis now not clearly seen. No new mass or gopal opathy clearly identified. .
== END | disposition home or self-care (01) ==
LOC: RADPROMAIN 13:00
PROVIDERS: ATTEND Internal Medicine Hematology & Oncology
DX: R18.8 Other ascites (principal); Z85.43 Personal history of malignant neoplasm of ovary; Z90.710 Acquired absence of both cervix and uterus
CPT/HCPCS: 71260; 74177; J1642; Q9967

== ENCOUNTER → 2021-08-13 | Outpatient (CLI) | payer OTHER ==
--- NOTE | 2021-08-15 11:33 | MM ---
Reason for exam: screening (asymptomatic). Last mammogram was performed 7 years and 4 months ago. History: Patient is postmenopausal and has history of ovarian cancer at age 54. Family history of breast cancer in maternal aunt at age 70 and breast cancer in maternal grandmother at age 90. Physical Findings: A clinical breast exam by your physician is recommended on an annual basis and results should be correlated with mammographic findings. MG 3D Screening Mammo W/Cad Bilateral CC and MLO view(s) were taken. Prior study comparison: April 17, 2014, right breast MG work up mamm w CAD RT. April 12, 2014, bilateral MG screening mammo w CAD. The breast tissue is heterogeneously dense. This may lower the sensitivity of mammography. There are benign appearing round calcifications in the left breast. There is no discrete abnormality. Right axillary mediport new from 2013. ASSESSMENT: Benign, BI-RAD 2 RECOMMENDATION: Routine screening mammogram of both breasts in 1 year.
== END | disposition home or self-care (01) ==
LOC: RADMAMWWP 06-30 07:54
PROVIDERS: ATTEND Family Medicine
DX: Z12.31 Encounter for screening mammogram for malignant neoplasm of breast (principal); Z78.0 Asymptomatic menopausal state; Z85.43 Personal history of malignant neoplasm of ovary; Z80.3 Family history of malignant neoplasm of breast
CPT/HCPCS: 77063; 77067

== ENCOUNTER → 2021-08-27 | Outpatient (CLI) | payer OTHER ==
[2021-08-27 09:29] LABS: African American GFR (CKD) >90 (>60 ml/min/1.73 sqM); Blood Urea Nitrogen 16 mg/dL (7-17); Non-African American GFR(CKD) >90 (>60 ml/min/1.73 sqM)
--- NOTE | 2021-08-27 11:26 | CT ---
EXAMINATION TYPE: CT ChestAbdPelvis w con DATE OF EXAM: 08/27/2021 COMPARISON: Most recent CT May 28, 2021 and older studies HISTORY: Ovarian Cancer CT DLP: 1334 mGycm. Automated Exposure Control for Dose Reduction was Utilized. CONTRAST: CT scan of the thorax, abdomen and pelvis is performed with oral and with IV Contrast, patient inject ed with 100 ml mL of Isovue 300. FINDINGS: LUNGS: An azygos lobe/fissure is redemonstrated. The lungs remain grossly clear, there is no concerni ng new greater than 5 mm noncalcified parenchymal mass or nodule identified. There is no pleural ef fusion or pneumothorax seen. The tracheobronchial tree is patent. Mild bibasilar linear scarring and /or atelectasis is redemonstrated. MEDIASTINUM: There are no new greater than 1 cm noncalcified hilar or mediastinal lymph nodes. Promi nent but calcified right hilar lymph nodes redemonstrated. No pericardial effusion is seen. Heart si ze stable and upper limits of normal. There is mild to moderate left ventricular dilatation redemonst rated. OTHER: There is stable right Subclavian Mediport catheter. LIVER/GB: Tiny hypodense focus posterior right hepatic lobe axial image 62 is stable and too small to further characterize strongly favored benign. PANCREAS: No significant abnormality is seen. SPLEEN: Scattered calcifications throughout the spleen consistent with product of old granulomatous d isease are redemonstrated. ADRENALS: No significant abnormality is seen. KIDNEYS: Symmetric cortical medullary uptake and excretion from both kidneys without hydronephrosis s een bilaterally. Roughly 1.0 cm thin-walled cyst left kidney midpole level laterally series 7 image 3 1 is redemonstrated. BOWEL: Oral contrast reaches level of cecum making evaluation of distal bowel suboptimal. Patient al so has very little intra-abdominal fat making bowel evaluation suboptimal There is no suspicious smal l or large bowel dilatation. Improved areas of wall thickening on current study. Mild diffuse colonic fecal prominence remains present. More focal colonic fecal prominence in the pelvis on current study . GENITAL ORGANS: Uterus remains surgically absent. Both ovaries suspected surgically absent. Surgical clips in pelvis now redemonstrated axial image 107. Overlying Anterior vertical skin redemonstrated. Occasional scattered pelvic phlebolith. LYMPH NODES: No definitive new greater than 1cm abdominal or pelvic lymph nodes are appreciated. OSSEOUS STRUCTURES: Multilevel facet arthropathy in mid to lower lumbar spine. Moderate disc space na rrowing and vacuum disc phenomenon L4-L5 and L5-S1 levels redemonstrated. OTHER: Recurrent Peritoneal carcinomatosis now is not clearly identified inferior to the liver anteri salo and anterior to bowel loops in the upper to mid abdomen. IMPRESSION: No suspicious new mass or adenopathy or recurrent suspicious peritoneal thickening or car cinomatosis to suggest active neoplastic recurrence. .
== END | disposition home or self-care (01) ==
LOC: RADPROMAIN 07:43
PROVIDERS: ATTEND Internal Medicine Hematology & Oncology
DX: N28.1 Cyst of kidney, acquired (principal); Z85.43 Personal history of malignant neoplasm of ovary
CPT/HCPCS: 82565; 84520; 71260; 74177; 36415; J1642; Q9967

== ENCOUNTER 2021-10-21 07:36 | Day surgery (SDC) | payer OTHER ==
[2021-10-16 10:42] VITALS: BMI 24.1
[~2021-10-21 07:36] MED LIST: LACTATED RINGERS 1,000 ML IV SCH; LIDOCAINE 1% (10MG/ML) FOR IV START INTRADERMA PRN
[2021-10-21 08:09] VITALS: TEMP 97.6
[2021-10-21] MEDS ORDERED: PROPOFOL 10 MG/ML 20 ML VIAL IV ONE (08:41)
[2021-10-21] MEDS ORDERED: LIDOCAINE 1% INJ 10MG/ML (20 ML MDV) ONE (08:41)
--- NOTE | 2021-10-21 08:46 | P.GSHP ---
History of Present Illness H&P Date: 10/21/21 Chief Complaint: Colon cancer screening 55-year-old female here today for colonoscopy. She has not had one previously. She was diagnosed with ovarian cancer last year. No bowel complaints. Father with history of colon cancer. Past Medical History Past Medical History: Asthma, Cancer, Pulmonary Embolus (PE) Additional Past Medical History / Comment(s): Bronchitis, chronic low back pain/mild scoliosis, sinus problems/seasonal allergies. ovarian cancer-dx 11-06-[address] Wilson-Chemo started November 2020-last chemo Apr,initially had low EF rate-started on metoprolol-improved with last echo History of Any Multi-Drug Resistant Organisms: None Reported Past Surgical History: Hernia Repair, Hysterectomy Additional Past Surgical History / Comment(s): Umbilical hernia, D&Cs, wisdom teeth extractions. multi Paracentesis, RADICAL OVARIAN SURGERY (HYSTERECTOMY AND OPEN EXPLORATORY),rt chest portacath Additional Past Anesthesia/Blood Transfusion Reaction / Comment(s): Hypotensive with hernia surgery Smoking Status: Former smoker - Past Family History Mother Family Medical History: Coronary Artery Disease (CAD) Additional Family Medical History / Comment(s): Mother is healthy Father Family Medical History: Cancer Additional Family Medical History / Comment(s): Father is at 85 yrs. He had colon cancer in age 50s Medications and Allergies Home Medications Medication Instructions Recorded Confirmed Type Metoprolol Tartrate [Lopressor] 25 mg PO BID #60 tab 11/18/20 10/21/21 Rx Ondansetron [Zofran] 4 mg PO Q8HR PRN #20 tab 11/18/20 10/21/21 Rx Acetaminophen [Tylenol] 500 mg PO Q4-6H PRN 11/28/20 10/21/21 History Albuterol Inhaler [Ventolin Hfa 2 puff INHALATION RT-QID PRN 10/16/21 10/21/21 History Inhaler] Apixaban [Eliquis] 5 mg PO BID 10/16/21 10/21/21 History Bevacizumab [Avastin] 1 dose IV Q21D 10/16/21 10/21/21 History Losartan Potassium [Cozaar] 12.5 mg PO HS 10/16/21 10/21/21 History Niraparib Tosylate [Zejula] 200 mg PO HS 10/16/21 10/21/21 History Spironolactone [Aldactone] 25 mg PO DAILY 10/16/21 10/21/21 History Allergies Allergy/AdvReac Type Severity Reaction Status Date / Time No Known Allergies Allergy Verified 10/21/21 07:52 Surgical - Exam Vital Signs Temp Pulse Resp BP Pulse Ox 97.6 F 90 18 119/77 98 10/21/21 07:55 10/21/21 07:55 10/21/21 07:55 10/21/21 07:55 10/21/21 07:55 Physical exam: General: Well-developed, well-nourished HEENT: Normocephalic, sclerae nonicteric Abdomen: Nontender, nondistended Extremities: No edema Neuro: Alert and oriented Assessment and Plan (1) Colon cancer screening Narrative/Plan: Will proceed with colonoscopy at this time Current Visit: Yes Status: Acute Code(s): Z12.11 - ENCOUNTER FOR SCREENING FOR MALIGNANT NEOPLASM OF COLON SNOMED Code(s): 499197268
--- NOTE | 2021-10-21 09:15 | P.PCN ---
Date of Procedure: 10/21/21 Procedure(s) Performed: PREOPERATIVE DIAGNOSIS: Colon cancer screening, family history of colon cancer father POSTOPERATIVE DIAGNOSIS: Mild diverticulosis PROCEDURE: Colonoscopy ANESTHESIA: MAC SURGEON: Agustin Marley M.D. SPECIMENS: None ENDOSCOPIC PROCEDURE: The patient was placed on the endoscopy table in the left decubitus position. The Olympus colonoscope was inserted into the anus and passed under direct visualization to the base of the cecum. The appendiceal orifice was visualized. From that point the scope was slowly withdrawn inspecting all surfaces carefully. There were no neoplastic inflammatory or polypoid lesions throughout the cecum, ascending, transverse, descending, sigmoid and rectum. There was mild left-sided diverticulosis noted. Digital rectal examination was normal. The patient was taken to the recovery room in stable condition per anesthesia guidelines. RECOMMENDATIONS: Resume diet. Follow colonoscopy advised in 5 years given the patient's family history.
[2021-10-21 09:32] VITALS: RESP 16
[2021-10-21 09:46] VITALS: BP 106/69; PULSE 76
== END 2021-10-21 10:15 | disposition home or self-care (01) ==
LOC: ORWHC2ENDO 07:36
PROVIDERS: ATTEND Surgery
DX: Z12.11 Encounter for screening for malignant neoplasm of colon (principal); K57.30 Diverticulosis of large intestine without perforation or abscess without bleeding; J45.909 Unspecified asthma, uncomplicated; G89.4 Chronic pain syndrome; Z80.0 Family history of malignant neoplasm of digestive organs; M54.50 Low back pain, unspecified; M41.9 Scoliosis, unspecified; Z80.41 Family history of malignant neoplasm of ovary; Z92.21 Personal history of antineoplastic chemotherapy; Z86.711 Personal history of pulmonary embolism; J30.2 Other seasonal allergic rhinitis; Z90.710 Acquired absence of both cervix and uterus; Z98.890 Other specified postprocedural states; Z87.891 Personal history of nicotine dependence; Z82.49 Family history of ischemic heart disease and other diseases of the circulatory system; Z79.01 Long term (current) use of anticoagulants; Z79.899 Other long term (current) drug therapy
CPT/HCPCS: J2001; J2704; G0105; 45378

== ENCOUNTER → 2022-01-26 | Outpatient (CLI) | payer OTHER ==
--- NOTE | 2022-01-26 13:44 | CT ---
EXAMINATION TYPE: CT ChestAbdPelvis w con DATE OF EXAM: 01/26/2022 COMPARISON: 11/29/2021, 08/27/2021 all HISTORY: 56-year-old female C56.9, follow-up ovarian ca TECHNIQUE: Contiguous axial scanning of the chest, abdomen, and pelvis performed with IV Contrast, pa tient injected with 100 mL of Isovue 300. Delayed images through the kidneys were obtained. Coronal/s agittal reconstructions performed. CT DLP: 761.7 mGycm Automated exposure control for dose reduction was used. FINDINGS: CHEST: Celestine chest wall injection port. Catheter tip remains at the confluence of the brachiocephalic vein s. Heart normal size without pericardial effusion. Aorta normal caliber with very direct takeoff of the left vertebral artery directly from the aortic a rch. Calcified right hilar and superior mediastinal lymph nodes compatible with prior granulomatous diseas e. No thoracic lymphadenopathy by CT size criteria. Some residual strandy density in the anterior med iastinum likely mild thymic hyperplasia, unchanged. Emphysematous change in the lungs. Normal variant azygos fissure. No consolidation or pleural effusio n. ABDOMEN: No focal liver lesion or biliary ductal dilatation. Portal venous system is patent. Gallbladder, adrenal glands, and atrophic pancreas show no gross abnormal body. Calcified granulomas redemonstrated within the spleen. Scattered left renal cortical cysts measuring up to 9 mm unchanged. Extra renal pelves noted particul lucia on the right. No dilated small bowel, free fluid, or free air. No mesenteric or retroperitoneal lymphadenopathy see n. However, patchy omental and anterior peritoneal soft tissue densities increasing in some regions, for example, anterior left upper quadrant, axial image 65, and along the anterior midline axial images 7 3 and 75. Cecum hangs low in the pelvis. Scattered [id number] stool. PELVIS: Bladder is collapsed. Uterus surgically absent. Pelvic phleboliths versus surgical material. No abnor mal fluid collection in the pelvis or pelvic lymphadenopathy. BONES: Mild degenerative change both hips and pubic symphysis. Moderate degenerative disc disease L4-L5 and L5-S1. Normal variant sternal foramen. No osseous destructive process. IMPRESSION: 1. STATUS POST HYSTERECTOMY AND BILATERAL SALPINGO-OOPHORECTOMIES. 2. SOME SUBTLE INCREASED OMENTAL AND ANTERIOR PERITONEAL SOFT TISSUE DENSITY IN THE LEFT UPPER QUADRA NT AND ANTERIOR MIDLINE. EARLY PERITONEAL RECURRENCE DIFFICULT TO EXCLUDE AT THIS TIME. CLOSE ATTENTI ON ON FOLLOW-UP AND CORRELATE WITH TUMOR MARKERS. OTHERWISE, NO OTHER FINDINGS TO SUGGEST METASTATIC DISEASE.
== END | disposition home or self-care (01) ==
LOC: RADPROMAIN 10:32
PROVIDERS: ATTEND Internal Medicine Hematology & Oncology
DX: C56.9 Malignant neoplasm of unspecified ovary (principal); J98.4 Other disorders of lung; Z90.710 Acquired absence of both cervix and uterus; Z90.722 Acquired absence of ovaries, bilateral
CPT/HCPCS: 82565; 84520; 71260; 74177; 36415; J1642; Q9967

== ENCOUNTER → 2022-04-09 | Outpatient (CLI) | payer OTHER ==
[2022-04-09 11:10] LABS: African American GFR (CKD) 110.7 (60.0-200.0); Albumin 4.7 g/dL (3.8-4.9); Albumin/Globulin Ratio 1.96 (1.60-3.17); Anion Gap 13.3 mmol/L (10.00-18.00); BUN/Creat Ratio 14.29 Ratio (12.00-20.00); Carbon Dioxide 23.7 mmol/L (20.0-27.5); Globulin 2.4 g/dL (1.6-3.3); Non-African American GFR(CKD) 95.5 (60.0-200.0); Potassium 5.1 mmol/L (3.5-5.5); Total Bilirubin 0.5 mg/dL (0.30-1.20); Total Protein 7.1 g/dL (6.2-8.2)
[2022-04-09 12:13] LABS: Basophils # (A) 0.07 X 10*3/uL (0.00-0.10); Basophils % (A) 1.6 %; Eosinophils # (A) 0.06 X 10*3/uL (0.04-0.35); Eosinophils % (A) 1.4 %; Immature Grans, Automated 0.2 %; Lymphocytes # (A) 1.25 X 10*3/uL (0.90-5.00); Lymphocytes % (A) 28.8 %; MCH 35.7 pg (27.0-32.0); MCHC 32.4 g/dL (32.0-37.0); MCV 110.1 fL (80.0-97.0); Macrocytosis (M) 2+; Mean Platelet Volume 11.3 fL (9.5-12.2); Monocytes % (A) 11.5 %; NRBC Per 100 WBC 0 /100 WBCS (0.0-0.0); Neutrophils # (A) 2.45 X 10*3/uL (1.80-7.70); Neutrophils % (A) 56.5 %; Platelet Count 196 X 10*3/uL (140-440); RBC 3.36 X 10*6/uL (4.10-5.20); RDW 13.8 % (11.5-14.5); WBC 4.34 X 10*3/uL (4.50-10.00)
== END | disposition home or self-care (01) ==
LOC: LABWHC1 07:58
PROVIDERS: ATTEND Internal Medicine Hematology & Oncology
DX: O88.23 Thromboembolism in the puerperium (principal); O99.519 Diseases of the respiratory system complicating pregnancy, unspecified trimester; O9A.119 Malignant neoplasm complicating pregnancy, unspecified trimester; Z3A.00 Weeks of gestation of pregnancy not specified; C56.9 Malignant neoplasm of unspecified ovary; J45.998 Other asthma
CPT/HCPCS: 36415; 80053; 85025; 86304

== ENCOUNTER → 2022-08-20 | Outpatient (CLI) | payer OTHER ==
[~2022-08-20] MED LIST changes: -LACTATED RINGERS 1,000 ML IV SCH; -LIDOCAINE 1% (10MG/ML) FOR IV START INTRADERMA PRN; +SODIUM CHLORIDE 0.9% 500 ML 500 ML in EMPTY BAG 1 BAG IV PRN
[2022-08-20 07:59] VITALS: BP 115/68; PULSE 82; RESP 16; TEMP 98
== END ==
LOC: PROCWHC3 07:45
DX: C56.9 Malignant neoplasm of unspecified ovary (principal)
CPT/HCPCS: 96523; J1642

== ENCOUNTER → 2022-09-23 | Outpatient (CLI) | payer OTHER ==
[2022-09-23 14:56] LABS: Basophils # (A) 0.06 X 10*3/uL (0.00-0.10); Eosinophils % (A) 3.3 %; HCT 35.8 % (37.2-46.3); HGB 11.4 g/dL (12.0-15.0); Immature Grans, Automated 0.3 %; Lymphocytes # (A) 1.08 X 10*3/uL (0.90-5.00); MCH 33.1 pg (27.0-32.0); MCHC 31.8 g/dL (32.0-37.0); MCV 104.1 fL (80.0-97.0); Mean Platelet Volume 9.7 fL (9.5-12.2); Monocytes # (A) 0.59 X 10*3/uL (0.20-1.00); Monocytes % (A) 9.8 %; NRBC Per 100 WBC 0 /100 WBCS (0.0-0.0); Neutrophils # (A) 4.06 X 10*3/uL (1.80-7.70); Neutrophils % (A) 67.6 %; Platelet Count 326 X 10*3/uL (140-440); RBC 3.44 X 10*6/uL (4.10-5.20); RDW 13.5 % (11.5-14.5); WBC 6.01 X 10*3/uL (4.50-10.00)
[2022-09-23 15:48] LABS: Erythrocyte Sedimentation Rate 54 mm/Hr (0-30)
[2022-09-23 17:50] LABS: African American GFR (CKD) 111.1 (60.0-200.0); Albumin 4.4 g/dL (3.8-4.9); Albumin/Globulin Ratio 1.75 (1.60-3.17); Anion Gap 16.3 mmol/L (10.00-18.00); BUN/Creat Ratio 14.08 Ratio (12.00-20.00); Blood Urea Nitrogen 9.8 mg/dL (9.0-27.0); C Reactive Protein 1.8 mg/dL (0.00-0.80); Calcium 9.6 mg/dL (8.7-10.3); Carbon Dioxide 23.2 mmol/L (20.0-27.5); Globulin 2.5 g/dL (1.6-3.3); Non-African American GFR(CKD) 95.8 (60.0-200.0); Potassium 4.5 mmol/L (3.5-5.5); Total Bilirubin 0.2 mg/dL (0.30-1.20); Total Protein 6.8 g/dL (6.2-8.2)
== END | disposition home or self-care (01) ==
LOC: LABWHC1 08:03
PROVIDERS: ATTEND Nurse Practitioner Adult Health
DX: C56.9 Malignant neoplasm of unspecified ovary (principal); D61.818 Other pancytopenia; E63.9 Nutritional deficiency, unspecified; F41.9 Anxiety disorder, unspecified; R53.82 Chronic fatigue, unspecified
CPT/HCPCS: 36415; 80053; 82306; 82525; 82728; 82977; 83615; 83690; 84255; 85025; 85379; 85652; 86140; 86304

== ENCOUNTER 2022-10-08 08:58 | Day surgery (SDC) | payer OTHER ==
[2022-10-08 09:23] VITALS: RESP 16; TEMP 98.1
[2022-10-08 10:47] VITALS: BP 116/69; PULSE 94
--- NOTE | 2022-10-08 11:52 | US ---
EXAMINATION TYPE: US paracentesis abd w/image DATE OF EXAM: 10/08/2022 CLINICAL HISTORY: Ascites The procedure was discussed with the patient. The risks, complications, benefits, and alternatives we re discussed and any questions were answered. Informed consent was obtained. The patient was placed s upine on the ultrasound table and prepped and draped in the usual sterile fashion. All elements of maximal barrier technique were utilized. Ultrasound was used to magan an appropriate site in the right lower quadrant. Access to the ascites was obtained with a paracentesis catheter. Approximately 3.7 liters of straw-colored fluid was removed. The patient was stable throughout the pr ocedure and remained stable upon discharge from Department of Radiology. IMPRESSION: Successful therapeutic paracentesis under ultrasound guidance.
== END 2022-10-08 10:51 | disposition home or self-care (01) ==
LOC: RADPROMAIN 08:58
PROVIDERS: ATTEND Nurse Practitioner Family
DX: R18.8 Other ascites (principal)
CPT/HCPCS: 49083

== ENCOUNTER 2022-12-11 12:04 | Observation (INO) | payer OTHER ==
--- NOTE | 2022-12-11 13:14 | ED ---
General Adult HPI - General Chief complaint: Recheck/Abnormal Lab/Rx Stated complaint: Low Hemoglobin,Sent by Dr Time Seen by Provider: 12/11/22 12:10 Source: patient, RN notes reviewed, old records reviewed Mode of arrival: ambulatory Limitations: no limitations - History of Present Illness Initial comments: This is a 56-year-old female who presents emergency Department stating that she has a history of ovarian cancer for the last 2 years and she got chemotherapy today. Patient states when she was there they kayli blood and noticed she was anemic and sent the emergency department. Patient states she is on a blood thinner but she has not noted any black or bloody stools. Patient denies any chest pain palpitations or shortness of breath. Patient states she has noted that her skin looks whiter than normal and she has a little bit more tired than normal. Patient denies any swelling to the legs or calf tenderness. Patient denies headache patient with numbness weakness. - Related Data Home Medications Medication Instructions Recorded Confirmed Apixaban [Eliquis] 5 mg PO BID 10/16/21 12/11/22 Losartan Potassium [Cozaar] 12.5 mg PO DAILY 10/16/21 12/11/22 Lidocaine-Prilocaine Cream [Emla 1 applic TOPICAL DIRECTED PRN 12/11/22 12/11/22 Cream 2.5%/2.5%] metFORMIN HCL 500 mg PO DAILY 12/11/22 12/11/22 Previous Rx's Medication Instructions Recorded Metoprolol Tartrate [Lopressor] 25 mg PO BID #60 tab 11/18/20 Ondansetron [Zofran] 4 mg PO Q8HR PRN #20 tab 11/18/20 Allergies Allergy/AdvReac Type Severity Reaction Status Date / Time No Known Allergies Allergy Verified 12/11/22 12:55 Review of Systems ROS Statement: Those systems with pertinent positive or pertinent negative responses have been documented in the HPI. ROS Other: All systems not noted in ROS Statement are negative. Past Medical History Past Medical History: Asthma, Cancer Additional Past Medical History / Comment(s): Bronchitis, chronic low back pain/mild scoliosis, sinus problems/seasonal allergies. ovarian cancer-recently diagnosed in past 3 weeks f/u with Katie and now surgeon in [place] for 11/15/20. Maligant ascites. Chemo started November 2020 OVARIAN CA History of Any Multi-Drug Resistant Organisms: None Reported Past Surgical History: Hernia Repair Additional Past Surgical History / Comment(s): Umbilical hernia, D&Cs, wisdom teeth extractions. multi Paracentesis, current chemotherapy. RADICAL OVARIAN SURGERY (HYSTERECTOMY, FALLOPIAN TUBE, OVARIAN AND OTHER EXPLORATORY PROCEDURES) Mediport Additional Past Anesthesia/Blood Transfusion Reaction / Comment(s): Hypotensive with hernia surgery Past Psychological History: Anxiety Smoking Status: Former smoker Past Alcohol Use History: None Reported Past Drug Use History: None Reported - Past Family History Mother Family Medical History: Coronary Artery Disease (CAD) Additional Family Medical History / Comment(s): Mother is healthy Father Family Medical History: Cancer Additional Family Medical History / Comment(s): Father is at 85 yrs. He had colon cancer in age 50s General Exam - General Exam Comments Initial Comments: GENERAL: Patient is well-developed and well-nourished. Patient is nontoxic and well- hydrated and is in mild distress. ENT: Neck is soft and supple. No significant lymphadenopathy is noted. Oropharynx is clear. Moist mucous membranes. Neck has full range of motion without eliciting any pain. EYES: The sclera were anicteric and conjunctiva were pink and moist. Extraocular movements were intact and pupils were equal round and reactive to light. Eyelids were unremarkable. PULMONARY: Unlabored respirations. Good breath sounds bilaterally. No audible rales rhonchi or wheezing was noted. CARDIOVASCULAR: Patient is tachycardic at 110 beats a minute. ABDOMEN: Soft and nontender with normal bowel sounds. SKIN: Patient's skin is pale NEUROLOGIC: Patient is alert and oriented x3. Cranial nerves II through XII are grossly intact. Motor and sensory are also intact. Normal speech, volume and content. Symmetrical smile. MUSCULOSKELETAL: Normal extremities with adequate strength and full range of motion. No lower extremity swelling or edema. No calf tenderness. LYMPHATICS: No significant lymphadenopathy is noted PSYCHIATRIC: Normal psychiatric evaluation. Limitations: no limitations Course Vital Signs 12/11/22 12/11/22 12:07 14:26 Temperature 98 F Pulse Rate 118 H 98 Respiratory 16 18 Rate Blood Pressure 123/79 130/72 O2 Sat by Pulse 100 97 Oximetry Medical Decision Making - Medical Decision Making EKG shows sinus tachycardia with occasional PVC at 106 bpm OK interval 228 QRSs 87 Q-T intervals 353 QTC is 4:15. Patient's EKG shows occasional PVC is no ST segment elevation or depression Was pt. sent in by a medical professional or institution (VANESSA Morris, [employer], urgent care, hospital, or intermediate...) When possible be specific @ -Patient's oncologist sent the patient to the emergency department. Did you speak to anyone other than the patient for history (EMS, parent, family, police, friend...)? What history was obtained from this source @ -No Did you review nursing and triage notes (agree or disagree)? Why? @ -I reviewed and agree with nursing and triage notes Were old charts reviewed (outside hosp., previous admission, EMS record, old EKG, old radiological studies, urgent care reports/EKG's, intermediate records)? Report findings @ -I compared laboratory results prior lab results Differential Diagnosis (chest pain, altered mental status, abdominal pain women, abdominal pain men, vaginal bleeding, weakness, fever, dyspnea, syncope, headache, dizziness, GI bleed, back pain, seizure, CVA, palpatations, mental health, musculoskeletal)? @ -Differential Dyspnea: Coronary syndrome, arrhythmia, tamponade, asthma, COPD, pulmonary embolism, pneumonia, pneumothorax, pulmonary effusion, anaphylaxis, diabetic ketoacidosis, flailed chest, pulmonary contusion, diaphragmatic rupture, anemia, neuromuscular, this is not meant to be an all-inclusive list. EKG interpreted by me (3pts min.). @ -As above X-rays interpreted by me (1pt min.). @ -None done CT interpreted by me (1pt min.). @ -None done U/S interpreted by me (1pt. min.). @ -None done What testing was considered but not performed or refused? (CT, X-rays, U/S, labs)? Why? @ -None What meds were considered but not given or refused? Why? @ -None Did you discuss the management of the patient with other professionals (professionals i.e. VANESSA Morris, [employer]ER, lab, RT, psych nurse, older adult social work specialist, prenatal teacher, teacher, air intelligence officer, lead case manager)? Give summary @ -Spoke with the [facility] agreed to admit the patient to the patient wrote admitting orders Was smoking cessation discussed for >3mins.? @ -No Was critical care preformed (if so, how long)? @ -35 minutes Were there social determinants of health that impacted care today? How? (Homelessness, low income, unemployed, alcoholism, drug addiction, transportation, low edu. Level, literacy, decrease access to med. care, group home, rehab)? @ -No Was there de-escalation of care discussed even if they declined (Discuss DNR or withdrawal of care, Hospice)? DNR status @ -No What co-morbidities impacted this encounter? (DM, HTN, Smoking, COPD, CAD, Canc er, CVA, ARF, Chemo, Hep., AIDS, mental health diagnosis, sleep apnea, morbid obesity)? @ -None Was patient admitted / discharged? Hospital course, mention meds given and route, prescriptions, significant lab abnormalities, going to OR and other pertinent info. @ -Remained had blood drawn because of potential low hemoglobin. Patient's hemoglobin was 5.4. I ordered 2 units of packed red blood cells. I spoke with [facility] agreed to admit the patient admitted the patient I consulted hematology oncology Undiagnosed new problem with uncertain prognosis? @ -No Drug Therapy requiring intensive monitoring for toxicity (Heparin, Nitro, Insulin, Cardizem)? @ -Packed red blood cells Were any procedures done? @ -No Diagnosis/symptom? @ -Anemia Acute, or Chronic, or Acute on Chronic? @ -Acute Uncomplicated (without systemic symptoms) or Complicated (systemic symptoms)? @ -Complicated Side effects of treatment? @ -No Exacerbation, Progression, or Severe Exacerbation? @ -No Poses a threat to life or bodily function? How? (Chest pain, USA, SD, pneumonia, PE, COPD, DKA, ARF, appy, cholecystitis, CVA, Diverticulitis, Homicidal, Suicidal, threat to staff... and all critical care pts) @ -Yes this could be due to hypoxia and end organ dysfunction - Lab Data Result diagrams: 12/11/22 14:25 Lab Results 12/11/22 12/11/22 12/11/22 Range/Units 13:25 14:25 14:25 WBC 3.0 L (3.8-10.6) k/uL RBC 1.52 L (3.80-5.40) m/uL Hgb 5.4 L* (11.4-16.0) gm/dL Hct 16.1 L* (34.0-46.0) % MCV 106.2 H (80.0-100.0) fL MCH 35.4 H (25.0-35.0) pg MCHC 33.4 (31.0-37.0) g/dL RDW 22.3 H (11.5-15.5) % Plt Count 307 (150-450) k/uL MPV 7.5 Neutrophils % 48 % Lymphocytes % 43 % Monocytes % 3 % Eosinophils % 1 % Basophils % 1 % Neutrophils # 1.4 (1.3-7.7) k/uL Lymphocytes # 1.3 (1.0-4.8) k/uL Monocytes # 0.1 (0-1.0) k/uL Eosinophils # 0.0 (0-0.7) k/uL Basophils # 0.0 (0-0.2) k/uL Manual Slide Review Performed Hypochromasia Slight Poikilocytosis (manual Present Anisocytosis Moderate Macrocytosis Marked A PT 11.0 (9.0-12.0) sec INR 1.0 (<1.2) APTT 43.8 H (22.0-30.0) sec Troponin I (0.000-0.034) ng/mL Stool Occult Blood Negative (Negative) Blood Type Blood Type Recheck Bld Type Recheck Status Antibody Screen Crossmatch Spec Expiration Date 12/11/22 12/11/22 Range/Units 14:25 14:25 WBC (3.8-10.6) k/uL RBC (3.80-5.40) m/uL Hgb (11.4-16.0) gm/dL Hct (34.0-46.0) % MCV (80.0-100.0) fL MCH (25.0-35.0) pg MCHC (31.0-37.0) g/dL RDW (11.5-15.5) % Plt Count (150-450) k/uL MPV Neutrophils % % Lymphocytes % % Monocytes % % Eosinophils % % Basophils % % Neutrophils # (1.3-7.7) k/uL Lymphocytes # (1.0-4.8) k/uL Monocytes # (0-1.0) k/uL Eosinophils # (0-0.7) k/uL Basophils # (0-0.2) k/uL Manual Slide Review Hypochromasia Poikilocytosis (manual Anisocytosis Macrocytosis PT (9.0-12.0) sec INR (<1.2) APTT (22.0-30.0) sec Troponin I <0.012 (0.000-0.034) ng/mL Stool Occult Blood (Negative) Blood Type O Positive Blood Type Recheck No Previous Record Bld Type Recheck Status CABO Indicated Antibody Screen NEGATIVE Crossmatch See Detail Spec Expiration Date 12/14/20222324 Critical Care Time Critical Care Time: Yes Total Critical Care Time: 35 Disposition Clinical Impression: Anemia, History of ovarian cancer Disposition: ADMITTED IP TO THIS HOSP Referrals: Margareth Mays MD [Primary Care Provider] - 1-2 days Time of Disposition: 15:49
[2022-12-11] MEDS ORDERED: SODIUM CHLORIDE 0.9% 500 ML 500 ML IV STA (13:30)
[2022-12-11 14:52] LABS: Anisocytosis Moderate; Basophils % (A) 1 %; Eosinophils % (A) 1 %; Hypochromasia Slight; Lymphocytes # (A) 1.3 k/uL (1.0-4.8); Lymphocytes % (A) 43 %; MCH 35.4 pg (25.0-35.0); MCHC 33.4 g/dL (31.0-37.0); MCV 106.2 fL (80.0-100.0); Macrocytosis Marked; Mean Platelet Volume 7.5; Monocytes # (A) 0.1 k/uL (0-1.0); Monocytes % (A) 3 %; Neutrophils # (A) 1.4 k/uL (1.3-7.7); Neutrophils % (A) 48 %; Platelet Count 307 k/uL (150-450); RBC 1.52 m/uL (3.80-5.40); RDW 22.3 % (11.5-15.5)
[2022-12-11 15:01] LABS: HCT 16.1 % (34.0-46.0); HGB 5.4 gm/dL (11.4-16.0)
[2022-12-11 15:16] LABS: Partial Thromboplastin Time 43.8 sec (22.0-30.0)
[2022-12-11 15:39] LABS: Poikilocytosis (M) Present
[2022-12-11] MEDS ORDERED: SODIUM CHLORIDE 0.9% 1,000 ML IV ONE (15:50)
[2022-12-11 15:51] LABS: ALT 36 U/L (4-34); AST 44 U/L (14-36); African American GFR (CKD) >90 (>60 ml/min/1.73 sqM); Albumin 3.5 g/dL (3.5-5.0); Alkaline Phosphatase 168 U/L (38-126); Anion Gap 7 mmol/L; Blood Urea Nitrogen 15 mg/dL (7-17); Calcium 10.3 mg/dL (8.4-10.2); Carbon Dioxide 31 mmol/L (22-30); Chloride 101 mmol/L (98-107); Glucose 120 mg/dL (74-99); Non-African American GFR(CKD) >90 (>60 ml/min/1.73 sqM); Potassium 4.7 mmol/L (3.5-5.1); Sodium 139 mmol/L (137-145); Total Bilirubin 0.3 mg/dL (0.2-1.3); Total Protein 6.3 g/dL (6.3-8.2)
[2022-12-11] MEDS ORDERED: ACETAMINOPHEN TAB 325 MG TAB PO PRN (19:40)
[2022-12-12 06:06] LABS: Anisocytosis Marked; Basophils % (A) 1 %; Eosinophils # (A) 0.1 k/uL (0-0.7); Eosinophils % (A) 2 %; HCT 23.7 % (34.0-46.0); Lymphocytes # (A) 1.2 k/uL (1.0-4.8); Lymphocytes % (A) 38 %; MCH 32.9 pg (25.0-35.0); MCHC 33.5 g/dL (31.0-37.0); Macrocytosis Marked; Mean Platelet Volume 7.6; Monocytes # (A) 0.1 k/uL (0-1.0); Monocytes % (A) 4 %; Neutrophils # (A) 1.6 k/uL (1.3-7.7); Neutrophils % (A) 52 %; Platelet Count 276 k/uL (150-450); RBC 2.41 m/uL (3.80-5.40); RDW 24.8 % (11.5-15.5)
[2022-12-12 06:08] LABS: HGB 7.9 gm/dL (11.4-16.0); MCV 98.3 fL (80.0-100.0)
[2022-12-12 09:17] VITALS: BP 124/75; PULSE 104; RESP 16; TEMP 98.3
--- NOTE | 2022-12-13 08:41 | P.HPIM ---
History of Present Illness H&P Date: 12/11/22 Chief Complaint: Severe anemia 56-year-old female who presents emergency Department stating that she has a history of ovarian cancer for the last 2 years and she got chemotherapy today. Patient states when she was there they kayli blood and noticed she was anemic and sent the emergency department. Patient states she is on a blood thinner but she has not noted any black or bloody stools. Patient denies any chest pain palpitations or shortness of breath. Patient states she has noted that her skin looks whiter than normal and she has a little bit more tired than normal. Patient denies any swelling to the legs or calf tenderness. Patient denies headache patient with numbness weakness. Workup completed in ED reveals a hemoglobin of 5.4; patient received 2 units of packed RBCs in ED and is being admitted for hematology consult Review of Systems REVIEW OF SYSTEMS: CONSTITUTIONAL: No fever, no malaise, no fatigue. HEENT: No recent visual problems or hearing problems. Denied any sore throat. CARDIOVASCULAR: No chest pain, orthopnea, PND, no palpitations, no syncope. PULMONARY: No shortness of breath, no cough, no hemoptysis. GASTROINTESTINAL: No diarrhea, no nausea, no vomiting, no abdominal pain. NEUROLOGICAL: No headaches, no weakness, no numbness. HEMATOLOGICAL: Denies any bleeding or petechiae. GENITOURINARY: Denies any burning micturition, frequency, or urgency. MUSCULOSKELETAL/RHEUMATOLOGICAL: Denies any joint pain, swelling, or any muscle pain. ENDOCRINE: Denies any polyuria or polydipsia. The rest of the 14-point review of systems is negative. Past Medical History Past Medical History: Asthma, Cancer Additional Past Medical History / Comment(s): Bronchitis, chronic low back pain/mild scoliosis, sinus problems/seasonal allergies. ovarian cancer-recently diagnosed in past 3 weeks f/u with Katie and now surgeon in [place] for 11/15/20. Maligant ascites. Chemo started November 2020 OVARIAN CA History of Any Multi-Drug Resistant Organisms: None Reported Past Surgical History: Hernia Repair Additional Past Surgical History / Comment(s): Umbilical hernia, D&Cs, wisdom teeth extractions. multi Paracentesis, current chemotherapy. RADICAL OVARIAN SURGERY (HYSTERECTOMY, FALLOPIAN TUBE, OVARIAN AND OTHER EXPLORATORY PROCEDURES) Mediport Additional Past Anesthesia/Blood Transfusion Reaction / Comment(s): Hypotensive with hernia surgery Past Psychological History: Anxiety Smoking Status: Former smoker Past Alcohol Use History: None Reported Past Drug Use History: None Reported - Past Family History Mother Family Medical History: Coronary Artery Disease (CAD) Additional Family Medical History / Comment(s): Mother is healthy Father Family Medical History: Cancer Additional Family Medical History / Comment(s): Father is at 85 yrs. He had colon cancer in age 50s Medications and Allergies Home Medications Medication Instructions Recorded Confirmed Type Metoprolol Tartrate [Lopressor] 25 mg PO BID #60 tab 11/18/20 12/11/22 Rx Ondansetron [Zofran] 4 mg PO Q8HR PRN #20 tab 11/18/20 12/11/22 Rx Apixaban [Eliquis] 5 mg PO BID 10/16/21 12/11/22 History Losartan Potassium [Cozaar] 12.5 mg PO DAILY 10/16/21 12/11/22 History Lidocaine-Prilocaine Cream [Emla 1 applic TOPICAL DIRECTED PRN 12/11/22 12/11/22 History Cream 2.5%/2.5%] metFORMIN HCL 500 mg PO DAILY 12/11/22 12/11/22 History Allergies Allergy/AdvReac Type Severity Reaction Status Date / Time No Known Allergies Allergy Verified 12/11/22 12:55 Physical Exam Vitals: Vital Signs Temp Pulse Resp BP Pulse Ox 12/11/22 14:26 98 18 130/72 97 12/11/22 12:07 98 F 118 H 16 123/79 100 Intake and Output 12/11/22 12/11/22 12/11/22 06:59 14:59 22:59 Other: Weight 61.235 kg PHYSICAL EXAMINATION: GENERAL: The patient is alert and oriented x3, not in any acute distress. Well developed, well nourished. HEENT: Pupils are round and equally reacting to light. EOMI. No scleral icterus. No conjunctival pallor. Normocephalic, atraumatic. No pharyngeal erythema. No thyromegaly. CARDIOVASCULAR: S1 and S2 present. No murmurs, rubs, or gallops. PULMONARY: Chest is clear to auscultation, no wheezing or crackles. ABDOMEN: Soft, nontender, nondistended, normoactive bowel sounds. No palpable organomegaly. MUSCULOSKELETAL: No joint swelling or deformity. EXTREMITIES: No cyanosis, clubbing, or pedal edema. NEUROLOGICAL: Gross neurological examination did not reveal any focal deficits. SKIN: No rashes. Results CBC & Chem 7: 12/12/22 05:14 12/11/22 14:25 Labs: Abnormal Lab Results - Last 24 Hours (Table) 12/11/22 12/11/22 12/11/22 Range/Units 14:25 14:25 14:25 WBC 3.0 L (3.8-10.6) k/uL RBC 1.52 L (3.80-5.40) m/uL Hgb 5.4 L* (11.4-16.0) gm/dL Hct 16.1 L* (34.0-46.0) % MCV 106.2 H (80.0-100.0) fL MCH 35.4 H (25.0-35.0) pg RDW 22.3 H (11.5-15.5) % Macrocytosis Marked A APTT 43.8 H (22.0-30.0) sec Carbon Dioxide 31 H (22-30) mmol/L Glucose 120 H (74-99) mg/dL Calcium 10.3 H (8.4-10.2) mg/dL AST 44 H (14-36) U/L ALT 36 H (4-34) U/L Alkaline Phosphatase 168 H (38-126) U/L Crossmatch 12/11/22 Range/Units 14:25 WBC (3.8-10.6) k/uL RBC (3.80-5.40) m/uL Hgb (11.4-16.0) gm/dL Hct (34.0-46.0) % MCV (80.0-100.0) fL MCH (25.0-35.0) pg RDW (11.5-15.5) % Macrocytosis APTT (22.0-30.0) sec Carbon Dioxide (22-30) mmol/L Glucose (74-99) mg/dL Calcium (8.4-10.2) mg/dL AST (14-36) U/L ALT (4-34) U/L Alkaline Phosphatase (38-126) U/L Crossmatch See Detail Assessment and Plan Assessment: 1. Severe anemia - Patient is currently receiving chemotherapy for ovarian cancer; last chemo was done this morning - Patient received 2 units of packed RBCs in ED; we will monitor H&H closely and transfuse as needed 2. Ovarian cancer; patient follows up with oncology at [facility]; hematology oncology is consulted and recommendations are pending 3. Hypertension; Cozaar 12.5 mg daily 4. Diabetes mellitus type 2; metformin 500 mg daily 5. History of asthma; continue with home therapy
== END 2022-12-12 09:45 | disposition home or self-care (01) ==
LOC: EC 12:04 → 6NMEDSUR 16:05
PROVIDERS: ADMIT Hospitalist; ATTEND Hospitalist
DX: D64.9 Anemia, unspecified (principal); C56.9 Malignant neoplasm of unspecified ovary; F41.9 Anxiety disorder, unspecified; J45.909 Unspecified asthma, uncomplicated; E11.9 Type 2 diabetes mellitus without complications; I10 Essential (primary) hypertension; M41.9 Scoliosis, unspecified; G89.29 Other chronic pain; M54.50 Low back pain, unspecified; Z79.01 Long term (current) use of anticoagulants; Z79.84 Long term (current) use of oral hypoglycemic drugs; Z79.899 Other long term (current) drug therapy; Z90.710 Acquired absence of both cervix and uterus; Z98.818 Other dental procedure status; Z92.21 Personal history of antineoplastic chemotherapy; Z98.890 Other specified postprocedural states; Z82.49 Family history of ischemic heart disease and other diseases of the circulatory system; Z80.0 Family history of malignant neoplasm of digestive organs
CPT/HCPCS: 36430; 96374; 96361; 99285; 99291; 36415; 86900; 86901; 80053; 84484; 85025 ×2; 85610; 85730; 86850; 86920; 82272; G0378 ×2; P9016; J1642

== ENCOUNTER → 2022-12-30 | Outpatient (CLI) | payer OTHER | END | disposition home or self-care (01) | LOC: LABWHC1 09:33 | PROVIDERS: ATTEND Nurse Practitioner Family | DX: C56.2 Malignant neoplasm of left ovary (principal) ==

== ENCOUNTER → 2023-03-03 | Outpatient (CLI) | payer OTHER ==
--- NOTE | 2023-03-03 18:14 | CT ---
EXAMINATION TYPE: CT ChestAbdPelvis w con DATE OF EXAM: 03/03/2023 COMPARISON: 01/26/2022, 11/28/2021 HISTORY: 57-year-old female C56.2, C56.9, f/u ovarian ca TECHNIQUE: Contiguous axial scanning of the chest, abdomen, and pelvis performed with IV Contrast, pa tient injected with 100 mL of Isovue 300. Delayed images through the kidneys were obtained. Coronal/s agittal reconstructions performed. CT DLP: 537.5 mGycm Automated exposure control for dose reduction was used. FINDINGS: CHEST: Right anterior chest wall injection port with catheter tip seen near the region of the brachiocephali c vein confluence. Heart the limits of normal in size without pericardial effusion. Aorta normal caliber with variant direct takeoff of the nondominant left vertebral artery directly fr om the aortic arch. New axillary lymphadenopathy measuring 2.3 x 1.2 cm on the right and 1.6 x 0.7 cm on the left. Calcified right hilar lymph nodes compatible with prior granulomatous disease. Otherwise, no mediastinal or hilar lymphadenopathy seen. Normal variant azygos fissure. Mild emphysematous change. There is a new trace right pleural effusion and pleural-based soft tissue plaques posterolateral right base measuring up to 2.8 x 0.8 cm also ne w from prior. Strandy bibasilar atelectasis. Mild generalized anasarca change. ABDOMEN: Extensive omental and peritoneal masses throughout. For example: * along the left flank measuring up to 8.1 x 4.6 cm, * anterior to the pancreas measuring up to 6.0 cm, * inferior to the stomach spanning from the midabdomen to the left side measuring up to 16.5 x 5.8 c m. * Along the right lower quadrant measuring up to 5.2 cm. * Mid mesenteric mass measuring 2.1 cm. * There is also caking and thickening of the inferior most omentum * and probable serosal disease causing luminal narrowing especially at the splenic flexure of the co maura. * Associated moderate ascites throughout the upper abdomen. Some areas of ascites demonstrated locul ations such as posterior right liver margin and within the lesser sac. No dilated small bowel or free air. Moderate overall stool burden. Kidneys appear displaced posteriorly for mass effect. Suspect mild right-sided hydronephrosis likely from the extensive peritoneal disease. Adrenal glands within normal limits. Pancreas shows no gross a bnormality. Gallbladder nondistended. Multiple granulomas within the spleen. PELVIS: Peritoneal disease with soft tissue thickening and areas of effusion extend into the pelvis. Multiple pelvic phleboliths. No definite pelvic lymphadenopathy. Bladder is urine distended. BONES: Heterogeneous areas are present throughout the marrow with more focal lucent areas, for example L3 ve rtebral body. Subtle underlying osseous metastatic disease not excluded. IMPRESSION: 1. MARKED INTERVAL DISEASE PROGRESSION: 2. WITHIN THE ABDOMEN AND PELVIS WITH THE DEVELOPMENT OF MULTIPLE PERITONEAL MASSES THROUGHOUT MEASUR ING UP TO 16.5 CM AND MODERATE UPPER ABDOMINAL ASCITES CONTAINING SOME LOCULATIONS. SUSPECT SEROSAL D ISEASE ALONG THE CECUM BUT ALSO NARROWING THE SPLENIC FLEXURE OF THE COLON. CAKING AND THICKENING OF THE INFERIOR MOST OMENTUM. 3. NEW AXILLARY LYMPHADENOPATHY MEASURING UP TO 2.3 CM ON THE RIGHT. 4. NEW TRACE RIGHT PLEURAL EFFUSION AND A FEW SOFT TISSUE PLEURAL DEPOSITS POSTERIOR RIGHT LUNG BASE MEASURING UP TO 2.8 CM. 5. GIVEN THE MARROW HETEROGENEITY, SUBTLE UNDERLYING DIFFUSE OSSEOUS METASTATIC DISEASE IS DIFFICULT TO EXCLUDE. 6. SUSPECT MILD RIGHT-SIDED HYDRONEPHROSIS DUE TO MASS EFFECT ONTO THE RIGHT URETER FROM THE EXTENSIV E PERITONEAL DISEASE.
== END | disposition home or self-care (01) ==
LOC: RADPROMAIN 10:30
DX: C56.2 Malignant neoplasm of left ovary (principal); J90 Pleural effusion, not elsewhere classified; R18.8 Other ascites; R59.0 Localized enlarged lymph nodes
CPT/HCPCS: 71260; 74177; J1642; Q9967

== ENCOUNTER 2023-05-04 12:15 | Day surgery (SDC) | payer OTHER ==
[2023-05-04 13:07] LABS: Mean Platelet Volume 7.2; Platelet Count 359 k/uL (150-450)
[2023-05-04 13:13] VITALS: TEMP 98.2
[2023-05-04 13:17] LABS: African American GFR (CKD) >90 (>60 ml/min/1.73 sqM); Non-African American GFR(CKD) >90 (>60 ml/min/1.73 sqM)
[2023-05-04] MEDS: ALBUMIN HUMAN 25% 50 ML in EMPTY BAG 1 BAG IVPB SCH ×3 (13:23→14:46)
[2023-05-04 13:35] LABS: INR 1.1 (<1.2); Prothrombin Time 11.3 sec (9.0-12.0)
[2023-05-04 14:51] VITALS: BP 131/80; PULSE 79; RESP 15
--- NOTE | 2023-05-04 15:07 | US ---
Ultrasound-guided paracentesis. DATE OF EXAM: 05/04/2023 CLINICAL HISTORY: Ascites The procedure was discussed with the patient. The risks, complications, benefits, and alternatives we re discussed and any questions were answered. Informed consent was obtained. The patient was placed s upine on the ultrasound table and prepped and draped in the usual sterile fashion. All elements of maximal barrier technique were utilized. Under ultrasound guidance, access into the left lower quadrant was obtained, via the paracentesis catheter system and direct ultrasound guidance . Approximately 0.7 liters of straw-colored fluid was removed. The patient was stable throughout the pr ocedure and remained stable upon discharge from Department of Radiology. IMPRESSION: Successful paracentesis under ultrasound guidance.
== END 2023-05-04 14:30 | disposition home or self-care (01) ==
LOC: RADPROMAIN 12:15
DX: R18.8 Other ascites (principal)
CPT/HCPCS: 82565; 85049; 85610; 36415; 49083; J1642

== ENCOUNTER → 2023-05-05 | Outpatient (CLI) | payer OTHER ==
--- NOTE | 2023-05-06 10:41 | MM ---
Reason for Exam: Screening (asymptomatic). Last mammogram was performed 1 year(s) and 8 month(s) ago. Patient History: Menarche at age 10. First Full-Term at age 23. Left ovary removed at age 54. Right ovary removed at age 54. Hysterectomy at age 54. Postmenopausal. Patient has history of breast feeding. Ovarian cancer, age 54. Maternal grandmother had breast cancer, age 90. Maternal aunt had breast cancer, age 70. Risk Values: Keely 5 year model risk: 1.5%. NCI Lifetime model risk: 8.3%. Prior Study Comparison: 04/12/2014 Bilateral Screening Mammogram, [facility]. 04/17/2014 Right Diagnostic Mammogram, [facility]. 08/13/2021 Bilateral Screening Mammogram, [facility]. Tissue Density: The breast tissue is extremely dense which could obscure a lesion on mammography. Findings: Analyzed By CAD. There is no suspicious group of microcalcifications or new suspicious mass in either breast. Overall Assessment: Benign, BI-RAD 2 Management: Screening Mammogram of both breasts in 1 year. . Patient should continue monthly self-breast exams. A clinical breast exam by your physician is recommended on an annual basis. This exam should not preclude additional follow-up of suspicious palpable abnormalities. Note on Keely scores and lifetime risk: 1. A Keely score greater than 3% is considered moderate risk. If this is the case, consider specialist referral to assess eligibility for a risk reducing agent. 2. If overall lifetime risk for the development of breast cancer is 20% or higher, the patient may qualify for future screening with alternating mammogram and breast MRI. Electronically signed and approved by: Victor M Gonzalez M.D. Radiologis
== END | disposition home or self-care (01) ==
LOC: RADMAMWWP 07:58
PROVIDERS: ATTEND Family Medicine
DX: Z12.31 Encounter for screening mammogram for malignant neoplasm of breast (principal); Z78.0 Asymptomatic menopausal state; Z80.3 Family history of malignant neoplasm of breast
CPT/HCPCS: 77067

== ENCOUNTER → 2024-06-01 | Outpatient (CLI) | payer OTHER ==
--- NOTE | 2024-06-12 09:43 | MM ---
Reason for Exam: Screening (asymptomatic). Last mammogram was performed 1 year(s) and 1 month(s) ago. Patient History: Menarche at age 10. First Full-Term at age 23. Left ovary removed at age 54. Right ovary removed at age 54. Hysterectomy at age 54. Postmenopausal. Patient has history of breast feeding. Ovarian cancer, age 54. Previous chemotherapy at age 55. Maternal grandmother had breast cancer, age 90. Maternal aunt had breast cancer, age 70. Risk Values: Keely 5 year model risk: 1.6%. NCI Lifetime model risk: 8.1%. Prior Study Comparison: 06/11/2011 Bilateral Screening Mammogram, [facility]. 04/12/2014 Bilateral Screening Mammogram, [facility]. 04/17/2014 Right Diagnostic Mammogram, [facility]. 08/13/2021 Bilateral Screening Mammogram, [facility]. 05/05/2023 Bilateral MG screening mammo w CAD, [facility]. Tissue Density: The breasts are heterogeneously dense, which may obscure small masses. Findings: Analyzed By CAD. Right breast: There is no suspicious group of microcalcifications or new suspicious mass. Left breast: There is no suspicious group of microcalcifications or new suspicious mass. Overall Assessment: Negative, BI-RAD 1 Management: Screening Mammogram of both breasts in [address] [facility] will attempt to contact patient to return for supplemental views and ultrasound if indicated. Patient should continue monthly self-breast exams. A clinical breast exam by your physician is recommended on an annual basis. This exam should not preclude additional follow-up of suspicious palpable abnormalities. Note on Keely scores and lifetime risk: 1. A Keely score greater than 3% is considered moderate risk. If this is the case, consider specialist referral to assess eligibility for a risk reducing agent. 2. If overall lifetime risk for the development of breast cancer is 20% or higher, the patient may qualify for future screening with alternating mammogram and breast MRI. [facility], , 06/12/2024 9:40 AM. Electronically signed and approved by: Raffy Blake DO
== END | disposition home or self-care (01) ==
LOC: RADMAMWWP 13:02
PROVIDERS: ATTEND Family Medicine
CPT/HCPCS: 77063; 77067

== ENCOUNTER 2024-06-08 20:53 | Observation (INO) | payer OTHER ==
--- NOTE | 2024-06-08 21:23 | ED ---
Abdominal Pain HPI - General Chief Complaint: Abdominal Pain Stated Complaint: NVD Time Seen by Provider: 06/08/24 21:09 Source: patient, EMS Mode of arrival: EMS Limitations: no limitations - History of Present Illness Initial Comments: Patient is a 58-year-old woman who presents to have evaluation of abdominal pain, nausea and vomiting. The patient states that she has history of ovarian cancer. She states that it was found in 2020 and she had hysterectomy and BSO performed. The patient states that she did initially have some chemotherapy and then it was stopped and then she started chemotherapy again. She took a round of that last week. She is now having nausea vomiting and right-sided abdominal pain. Pain is mild to moderate, constant, aching. She has not scar worsening or relieving factors. The patient did try taking ondansetron at home without relief of symptoms. She had 2 rounds of vomiting no hematemesis. No change in bowel movements or urination. No fever or chills. MD Complaint: abdominal pain -: hour(s) Location: RUQ, RLQ Radiation: none Severity: moderate Quality: dull Consistency: constant Improves With: nothing Worsens With: nothing Associated Symptoms: nausea, vomiting - Related Data Home Medications Medication Instructions Recorded Confirmed Apixaban [Eliquis] 5 mg PO BID 10/16/21 06/09/24 Losartan Potassium [Cozaar] 12.5 mg PO DAILY 10/16/21 06/09/24 ALPRAZolam [Xanax] 0.25 mg PO DAILY PRN 06/09/24 06/09/24 Albuterol Sulfate [Ventolin HFA] 2 puff INHALATION RT-Q4H PRN 06/09/24 06/09/24 Ondansetron [Zofran] 4 mg PO Q6H PRN 06/09/24 06/09/24 predniSONE [Deltasone] 20 mg PO DAILY 06/09/24 06/09/24 Previous Rx's Medication Instructions Recorded Metoprolol Tartrate [Lopressor] 25 mg PO BID #60 tab 11/18/20 Allergies Allergy/AdvReac Type Severity Reaction Status Date / Time carboplatin Allergy Anaphylaxis Verified 06/09/24 07:16 Review of Systems ROS Statement: Those systems with pertinent positive or pertinent negative responses have been documented in the HPI. ROS Other: All systems not noted in ROS Statement are negative. Constitutional: Denies: fever, chills, weakness Respiratory: Denies: cough, dyspnea Cardiovascular: Denies: chest pain, palpitations, edema Gastrointestinal: Reports: abdominal pain, nausea, vomiting. Denies: diarrhea, constipation, hematemesis, melena, hematochezia Genitourinary: Denies: dysuria, frequency, hematuria Musculoskeletal: Denies: back pain Skin: Denies: rash Neurological: Denies: headache, weakness Past Medical History Past Medical History: Asthma, Cancer Additional Past Medical History / Comment(s): Bronchitis, chronic low back pain/mild scoliosis, sinus problems/seasonal allergies. ovarian cancer-recently diagnosed in past 3 weeks f/u with Katie and now surgeon in [place] for 11/15/20. Maligant ascites. Chemo started November 2020 OVARIAN CA History of Any Multi-Drug Resistant Organisms: None Reported Past Surgical History: Hernia Repair Additional Past Surgical History / Comment(s): Umbilical hernia, D&Cs, wisdom teeth extractions. multi Paracentesis, current chemotherapy. RADICAL OVARIAN SURGERY (HYSTERECTOMY, FALLOPIAN TUBE, OVARIAN AND OTHER EXPLORATORY PROCEDURES) Mediport Additional Past Anesthesia/Blood Transfusion Reaction / Comment(s): Hypotensive with hernia surgery Past Psychological History: Anxiety Smoking Status: Never smoker - Past Family History Mother Family Medical History: Coronary Artery Disease (CAD) Additional Family Medical History / Comment(s): Mother is healthy Father Family Medical History: Cancer Additional Family Medical History / Comment(s): Father is at 85 yrs. He had colon cancer in age 50s General Exam Limitations: no limitations General appearance: alert, in no apparent distress Head exam: Present: atraumatic, normocephalic Eye exam: Present: normal appearance. Absent: scleral icterus, conjunctival injection ENT exam: Present: normal oropharynx Neck exam: Present: normal inspection Respiratory exam: Present: normal lung sounds bilaterally. Absent: respiratory distress, wheezes, rales, rhonchi, stridor, accessory muscle use Cardiovascular Exam: Present: regular rate, normal rhythm, normal heart sounds. Absent: systolic murmur, diastolic murmur, rubs, gallop GI/Abdominal exam: Present: distended, tenderness (Mild right sided tenderness without rebound or guarding). Absent: guarding, rebound, rigid, mass, hernia Extremities exam: Present: normal inspection, normal capillary refill. Absent: pedal edema, calf tenderness Back exam: Present: normal inspection. Absent: CVA tenderness (R), CVA ten derness (L) Neurological exam: Present: alert Skin exam: Present: warm, dry, intact, normal color. Absent: rash Course Vital Signs 06/08/24 06/08/24 06/09/24 21:01 23:05 03:03 Temperature 98.1 F Pulse Rate 80 86 105 H Respiratory 18 18 18 Rate Blood Pressure 106/67 110/70 108/79 O2 Sat by Pulse 99 97 97 Oximetry 06/09/24 06/09/24 06/09/24 03:42 06:46 08:10 Temperature 97.2 F L 97.9 F 98.1 F Pulse Rate 92 84 99 Respiratory 16 16 16 Rate Blood Pressure 122/81 129/89 122/88 O2 Sat by Pulse 96 98 98 Oximetry Medical Decision Making - Medical Decision Making Was pt. sent in by a medical professional or institution (, PA, JUVENILE COUNSELOR, urgent care, hospital, or halfway...) When possible be specific @ -[No] Did you speak to anyone other than the patient for history (EMS, parent, family, police, friend...)? What history was obtained from this source @ -[No] Did you review nursing and triage notes (agree or disagree)? Why? @ -[I reviewed and agree with nursing and triage notes] Were old charts reviewed (outside hosp., previous admission, EMS record, old EKG, old radiological studies, urgent care reports/EKG's, halfway records)? Report findings @ -[No old charts were reviewed] Differential Diagnosis (chest pain, altered mental status, abdominal pain women, abdominal pain men, vaginal bleeding, weakness, fever, dyspnea, syncope, headache, dizziness, GI bleed, back pain, seizure, CVA, palpatations, mental health, musculoskeletal)? @ -[Differential Abdominal Pain Women: Appendicitis, Cholecystitis, diverticulosis, ischemic bowel, pancreatitis, hepatitis, UTI, gastroenteritis, AAA, incarcerated hernia, bowel obstruction, constipation, inflammatory bowel, hepatitis, peptic ulcer disease, splenic infarction, perforated viscus, vulvitis, ovarian torsion, PID, kidney stone, placenta abruption, this is not meant to be an all-inclusive list EKG interpreted by me (3pts min.). @ -[As above] X-rays interpreted by me (1pt min.). @ -[None done] CT interpreted by me (1pt min.). @ -[None done] U/S interpreted by me (1pt. min.). @ -[None done] What testing was considered but not performed or refused? (CT, X-rays, U/S, labs)? Why? @ -[None] What meds were considered but not given or refused? Why? @ -[None] Did you discuss the management of the patient with other professionals (professionals i.e. , PA, JUVENILE COUNSELOR, lab, RT, psych nurse, hospital social worker, powerhouse electrician apprentice, teacher, planned giving officer, manager rn case)? Give summary @ -[Case discussed with admitting physician and treatment recommendations incorporated Was smoking cessation discussed for >3mins.? @ -[No] Was critical care preformed (if so, how long)? @ -[No] Were there social determinants of health that impacted care today? How? (Homelessness, low income, unemployed, alcoholism, drug addiction, transportation, low edu. Level, literacy, decrease access to med. care, correction, rehab)? @ -[No] Was there de-escalation of care discussed even if they declined (Discuss DNR or withdrawal of care, Hospice)? DNR status @ -[No] What co-morbidities impacted this encounter? (DM, HTN, Smoking, COPD, CAD, Cancer, CVA, ARF, Chemo, Hep., AIDS, mental health diagnosis, sleep apnea, morbid obesity)? @ -[History of metastatic cancer Was patient admitted / discharged? Hospital course, mention meds given and route, prescriptions, significant lab abnormalities, going to OR and other pertinent info. @ -[Patient is a 58-year-old woman here with intractable abdominal pain as well as nausea and vomiting. She did not have adequate response to medication and therefore I will be admitted to have fluid administration and additional medication. Undiagnosed new problem with uncertain prognosis? @ -[No] Drug Therapy requiring intensive monitoring for toxicity (Heparin, Nitro, Insulin, Cardizem)? @ -[No] Were any procedures done? @ -[No] Diagnosis/symptom? @ -[Intractable abdominal pain Intractable nausea and vomiting Metastatic ovarian cancer Acute, or Chronic, or Acute on Chronic? @ -[Acute Uncomplicated (without systemic symptoms) or Complicated (systemic symptoms)? @ -[Uncomplicated Side effects of treatment? @ -[No] Exacerbation, Progression, or Severe Exacerbation? @ -[No] Poses a threat to life or bodily function? How? (Chest pain, USA, GA, pneumonia, PE, COPD, DKA, ARF, appy, cholecystitis, CVA, Diverticulitis, Homicidal, Suicidal, threat to staff... and all critical care pts) @ -[Yes patient has metastatic cancer - Lab Data Result diagrams: 06/10/24 06:23 06/10/24 06:23 Lab Results 06/08/24 06/08/24 06/08/24 Range/Units 21:50 21:50 21:50 WBC 9.3 (3.8-10.6) k/uL RBC 3.81 (3.80-5.40) m/uL Hgb 12.2 (11.4-16.0) gm/dL Hct 38.0 (34.0-46.0) % MCV 99.8 (80.0-100.0) fL MCH 32.0 (25.0-35.0) pg MCHC 32.1 (31.0-37.0) g/dL RDW 14.9 (11.5-15.5) % Plt Count 356 (150-450) k/uL MPV 7.5 Neutrophils % 89 % Lymphocytes % 6 % Monocytes % 3 % Eosinophils % 1 % Basophils % 0 % Neutrophils # 8.3 H (1.3-7.7) k/uL Lymphocytes # 0.6 L (1.0-4.8) k/uL Monocytes # 0.3 (0-1.0) k/uL Eosinophils # 0.1 (0-0.7) k/uL Basophils # 0.0 (0-0.2) k/uL Hypochromasia Slight Macrocytosis Slight Sodium 135 L (137-145) mmol/L Potassium 3.6 (3.5-5.1) mmol/L Chloride 102 (98-107) mmol/L Carbon Dioxide 24 (22-30) mmol/L Anion Gap 9 mmol/L BUN 21 H (7-17) mg/dL Creatinine 0.58 (0.52-1.04) mg/dL Est GFR (CKD-EPI)AfAm >90 (>60 ml/min/1.73 sqM) Est GFR (CKD-EPI)NonAf >90 (>60 ml/min/1.73 sqM) Glucose 131 H (74-99) mg/dL Plasma Lactic Acid Yasmani 1.4 (0.7-2.0) mmol/L Calcium 9.6 (8.4-10.2) mg/dL Total Bilirubin 0.9 (0.2-1.3) mg/dL AST 42 H (14-36) U/L ALT 19 (4-34) U/L Alkaline Phosphatase 119 (38-126) U/L Total Protein 6.8 (6.3-8.2) g/dL Albumin 4.2 (3.5-5.0) g/dL Amylase 55 (30-110) U/L Lipase 47 (23-300) U/L Disposition Clinical Impression: Abdominal pain, Nausea and vomiting Disposition: ADMITTED IP TO THIS [facility] Condition: Good Is patient prescribed a controlled substance at d/c from ED?: No
[2024-06-08] MEDS: ONDANSETRON 4 MG/2 ML VIAL IVP STA (21:50)
[2024-06-08] MEDS: SODIUM CHLORIDE 0.9% 500 ML 500 ML IV STA (21:51)
[2024-06-08 22:04] LABS: Basophils % (A) 0 %; Eosinophils # (A) 0.1 k/uL (0-0.7); Eosinophils % (A) 1 %; HGB 12.2 gm/dL (11.4-16.0); Hypochromasia Slight; Lymphocytes # (A) 0.6 k/uL (1.0-4.8); Lymphocytes % (A) 6 %; MCHC 32.1 g/dL (31.0-37.0); MCV 99.8 fL (80.0-100.0); Macrocytosis Slight; Mean Platelet Volume 7.5; Monocytes # (A) 0.3 k/uL (0-1.0); Monocytes % (A) 3 %; Neutrophils # (A) 8.3 k/uL (1.3-7.7); Neutrophils % (A) 89 %; Platelet Count 356 k/uL (150-450); RBC 3.81 m/uL (3.80-5.40); RDW 14.9 % (11.5-15.5); WBC 9.3 k/uL (3.8-10.6)
[2024-06-08 23:39] LABS: ALT 19 U/L (4-34); AST 42 U/L (14-36); African American GFR (CKD) >90 (>60 ml/min/1.73 sqM); Albumin 4.2 g/dL (3.5-5.0); Alkaline Phosphatase 119 U/L (38-126); Amylase 55 U/L (30-110); Anion Gap 9 mmol/L; Blood Urea Nitrogen 21 mg/dL (7-17); Calcium 9.6 mg/dL (8.4-10.2); Carbon Dioxide 24 mmol/L (22-30); Chloride 102 mmol/L (98-107); Glucose 131 mg/dL (74-99); Lipase 47 U/L (23-300); Non-African American GFR(CKD) >90 (>60 ml/min/1.73 sqM); Potassium 3.6 mmol/L (3.5-5.1); Sodium 135 mmol/L (137-145); Total Bilirubin 0.9 mg/dL (0.2-1.3); Total Protein 6.8 g/dL (6.3-8.2)
[2024-06-09] MEDS: SODIUM CHLORIDE 0.9% 1,000 ML IV ONE (00:25)
[2024-06-09] MEDS: ONDANSETRON 4 MG/2 ML VIAL IVP STA ×2 (02:53→06:17)
[2024-06-09] MEDS ORDERED: MORPHINE SULFATE 4 MG/ML SYRINGE IV PRN (06:26)
[2024-06-09] MEDS ORDERED: NALOXONE 0.4 MG/ML 1 ML VIAL IV PRN (06:26)
[2024-06-09] MEDS: SODIUM CHLORIDE 0.9% 1,000 ML IV SCH (06:49)
[2024-06-09] MEDS: LOSARTAN 25 MG TAB PO SCH (09:59)
[2024-06-09] MEDS: FAMOTIDINE 20 MG TAB PO SCH (10:00)
[2024-06-09] MEDS: METOPROLOL TARTRATE 25 MG TAB PO SCH (10:00)
[2024-06-09] MEDS: APIXABAN 5 MG TAB PO SCH (10:00)
[2024-06-09] MEDS: ONDANSETRON 4 MG/2 ML VIAL IVP PRN (10:02)
--- NOTE | 2024-06-09 10:15 | US ---
EXAMINATION TYPE: US renals and bladder DATE OF EXAM: 06/09/2024 COMPARISON: NONE CLINICAL INDICATION: Female, 58 years old with history of Hydronephrosis; h/o ovarian ca, r/o hydro, no symptoms EXAM MEASUREMENTS: Right Kidney: 11.6 x 4.6 x 5.5 cm Left Kidney: 11.3 x 4.3 x 5.7 cm Right Kidney: mild to moderate hydronephrosis Left Kidney: No hydronephrosis or masses seen Bladder: not distended IMPRESSION: 1. Mild to moderate right hydronephrosis. No obstructing etiology is identified. [facility], , 06/09/2024 10:12 AM
[2024-06-09 10:16] LABS: Appearance,Urine Cloudy (Clear); Bacteria,Urine Rare /hpf; Bilirubin,Urine Negative (Negative); Blood,Urine Trace (Negative); Color,Urine Yellow; Glucose,Urine (UA) Negative (Negative); Hyaline Casts,Urine 2 /lpf (0-2); Ketones,Urine 1+ (Negative); Leukocyte Esterase,Urine Moderate (Negative); Mucus,Urine Moderate /hpf; Nitrite,Urine Negative (Negative); PH, Urine 5.5 (5.0-8.0); Protein,Urine 1+ (Negative); RBC,Urine 2 /hpf (0-5); Specific Gravity,Urine 1.027 (1.001-1.035); Squamous Epithelial Cell,Urine 2 /hpf (0-4); Urobilinogen,Urine <2.0 mg/dL (<2.0); WBC,Urine 42 /hpf (0-5)
--- NOTE | 2024-06-09 10:40 | P.HPIM ---
History of Present Illness H&P Date: 06/09/24 HISTORY OF PRESENT ILLNESS: 58-year-old with active medical history of ovarian cancer was diagnosed over 2 years ago been treated at [facility] had few rounds of chemotherapy in the past she had 2020 total hysterectomy and bilateral oophorectomy has been seen oncology in town Dr. Diogo Diggs at [facility] on a regular basis with looks like patient started another round of treatment which most likely immunotherapy more than mostly Taxol and Avastin received the last dose this last Wednesday. She become sick with nausea vomiting and abdominal pain on apparently she becomes sick in the past after chemotherapy normally presented to the emergency department this morning with increased abdominal discomfort with intractable nausea and vomiting could not keep any food or fluid down become quite bit dehydrated going back in her history it looks like she had same thing a year ago after 1 round of her chemotherapy was in the hospital for 48 hours for severe dehydration with intractable nausea and vomiting. She was assessed and evaluated by the emergency department no CAT scan done laboratory value shows mild dehydration only she was started on Zofran IV hydration could not keep anything down for few hours decided to admit patient to the hospital for symptoms control. Patient is having distended abdomen with mild discomfort in the right side apparently had no bowel obstruction in the past and only surgery and abdominal area was her total hysterectomy and oophorectomy for her cancer back in . Also patient is survival of cardiomyopathy nonischemic type back from 2020 still on medical management for it seeing cardiology regularly. She had a history of pulmonary embolism has been on anticoagulation for the last 2 years. UA done shortly after her admission came back positive also ultrasound of the kidney shows hydronephrosis of the right side which exist from an older CAT scan in which will consult nephrology for to make sure part of the discomfort she has in the right side is not consistent with it but another CAT scan will be ordered at this point. REVIEW OF SYSTEMS: CONSTITUTIONAL: Well-developed no acute respiratory distress. EYES: No icterus sclerae, no conjunctivitis. EARS, NOSE, MOUTH, THROAT, and FACE: No sore throat, lymphadenopathy, carotid bruits or deformity. RESPIRATORY: No SOB cough or wheezes. CARDIOVASCULAR: No CP, Palpitation, PND, Orthopnea, or angina. GASTROINTESTINAL: Increased abdominal pain with nausea and vomiting. GENITOURINARY: Negative for Hematuria or UTI, no kidney stones. Decreased urine output. History of breast cancer post bilateral hysterectomy and oophorectomy still on chemotherapy. INTEGUMENT/BREAST: Negative for any muscular injury with mild osteoarthritis.. HEMATOLOGIC/LYMPHATIC: Negative for bleed or purpura. MUSCULOSKELTAL: Negative for Myalgia or arthralgia. NEURLOGICAL: No LOC, Sz or syncope, blurred vision dizziness or abnormality.. BEHAVIORAL/PSYCH: Negative. ENDOCRINE: Negative. PHYSICAL EXAMINATION: General Appearance: Alert, cooperative, no distress, appears stated age. Neck HEENT: Supple, no lymphadenopathy, no thyroid enlargement, no carotid bruits. Lungs: Clear to auscultation without crackles or wheezes no rhonchi, no deformity. Chest Wall: Chest wall normal expansion with deep inspiration no tenderness and no deformity was found on exam, no costochondral pain or discomfort. Heart: Regular rate and rhythm, S1, S2 normal, no murmur, rub or gallop. Back: Symmetric, no curvature, ROM normal, no CVA tenderness. Abdomen: Soft with significant discomfort with slight tenderness in the right side and mid abdominal region area no rebound or rigidity not able to feel any mass. Extremities: Extremities normal, atraumatic, no cyanosis or edema. Pulses: 2+ and symmetric. Skin: Skin color, texture, tugor normal, no rashes or lesions. Neurologic: Alert oriented x3 cranial nerves II through XII intact, no motor deficit, no abnormal balance or gait. ASSESSMENT AND PLAN: _Recurrent abdominal pain: Could become relation of complication related to chemotherapy along with her hydronephrosis of the right side to be partial bowel obstruction and severe gastritis, patient be hospitalized continue IV hydration PPI IV Zofran will consult nephrology for hydronephrosis and treat her urinary tract infection as well and if this is complication related to chemotherapy hopefully will be better in 48 hours. _Intractable nausea and vomiting: Continue Zofran along with hydration. _History of ovarian cancer post total hysterectomy and oophorectomy has been doing chemotherapy and follow-up with TUTOR COORDINATOR oncology at [facility] sin ce 2020. _Moderate dehydration with BUN/creatinine ratio over 40 continue hydration with antiemetic medication and symptoms controlled. _Mild hyperglycemia: Accu-Chek with sliding scales coverage switch IV to 0.9 or 0.45. _History of cardiomyopathy with Takotsubo syndrome has been on metoprolol along with furosemide and losartan. _Right-sided hydronephrosis: Will consult urology CAT scan of the abdomen will be done to exclude any possibility of scar tissue causing problem partially the discomfort she has is more consistent with a right side. _Urinary tract infection with positive UA we will start patient on Rocephin 1 g daily waiting for the final culture. _Hypertension: Remain on losartan and metoprolol. _Tachycardia: Obviously patient has been on metoprolol with pulse rate has been well-controlled. _History of asthma: With no flareup lately will resume rescue inhaler on as-need ed basis. _History of pulmonary embolism has been on anticoagulation with Eliquis 5 mg twice a day continue vacation. _History of recurrent malignant ascites post paracentesis many times she still f ollow with oncology but this could create probably partial obstruction. Patient apparently had a CAT scan with her oncologist in May 22 with no sign of ascites at this point. _GI prophylaxis: Will be on pantoprazole IV. _DVT prophylaxis: Remain on anticoagulation. CODE STATUS: Full code. Admit patient to the inpatient service for 1-2 night stay. Past Medical History Past Medical History: Asthma, Cancer Additional Past Medical History / Comment(s): Bronchitis, chronic low back pain/mild scoliosis, sinus problems/seasonal allergies. ovarian cancer-recently diagnosed in past 3 weeks f/u with Katie and now surgeon in [place] for 11/15/20. Maligant ascites. Chemo started November 2020 OVARIAN CA History of Any Multi-Drug Resistant Organisms: None Reported Past Surgical History: Hernia Repair Additional Past Surgical History / Comment(s): Umbilical hernia, D&Cs, wisdom teeth extractions. multi Paracentesis, current chemotherapy. RADICAL OVARIAN SURGERY (HYSTERECTOMY, FALLOPIAN TUBE, OVARIAN AND OTHER EXPLORATORY PROCEDURES) Mediport Additional Past Anesthesia/Blood Transfusion Reaction / Comment(s): Hypotensive with hernia surgery Past Psychological History: Anxiety Smoking Status: Never smoker - Past Family History Mother Family Medical History: Coronary Artery Disease (CAD) Additional Family Medical History / Comment(s): Mother is healthy Father Family Medical History: Cancer Additional Family Medical History / Comment(s): Father is at 85 yrs. He had colon cancer in age 50s Medications and Allergies Home Medications Medication Instructions Recorded Confirmed Type Metoprolol Tartrate [Lopressor] 25 mg PO BID #60 tab 11/18/20 06/09/24 Rx Apixaban [Eliquis] 5 mg PO BID 10/16/21 06/09/24 History Losartan Potassium [Cozaar] 12.5 mg PO DAILY 10/16/21 06/09/24 History ALPRAZolam [Xanax] 0.25 mg PO DAILY PRN 06/09/24 06/09/24 History Albuterol Sulfate [Ventolin HFA] 2 puff INHALATION RT-Q4H PRN 06/09/24 06/09/24 History Ondansetron [Zofran] 4 mg PO Q6H PRN 06/09/24 06/09/24 History predniSONE [Deltasone] 20 mg PO DAILY 06/09/24 06/09/24 History Allergies Allergy/AdvReac Type Severity Reaction Status Date / Time carboplatin Allergy Anaphylaxis Verified 06/09/24 07:16 Physical Exam Vitals: Vital Signs Temp Pulse Resp BP Pulse Ox 06/09/24 06:46 97.9 F 84 16 129/89 98 06/09/24 03:42 97.2 F L 92 16 122/81 96 06/09/24 03:03 105 H 18 108/79 97 06/08/24 23:05 86 18 110/70 97 06/08/24 21:01 98.1 F 80 18 106/67 99 Intake and Output 06/08/24 06/09/24 06/09/24 22:59 06:59 14:59 Other: Weight 62.596 kg Results CBC & Chem 7: 06/08/24 21:50 06/08/24 21:50 Labs: Abnormal Lab Results - Last 24 Hours (Table) 06/08/24 06/08/24 Range/Units 21:50 21:50 Neutrophils # 8.3 H (1.3-7.7) k/uL Lymphocytes # 0.6 L (1.0-4.8) k/uL Sodium 135 L (137-145) mmol/L BUN 21 H (7-17) mg/dL Glucose 131 H (74-99) mg/dL AST 42 H (14-36) U/L
[2024-06-09] MEDS: DOCUSATE 100 MG CAP PO SCH (15:22)
--- NOTE | 2024-06-09 17:08 | P.GSCN ---
History of Present Illness Consult date: 06/09/24 Reason for Consult: Hydronephrosis History of present illness: This is a 58-year-old female with history of metastatic ovarian cancer currently on chemotherapy. Urology is consulted for hydronephrosis. Patient underwent a renal bladder ultrasound on admission which showed evidence of mild right-sided hydronephrosis. She does have history of right ureteral compression secondary to her ovarian cancer. Of note she did have a CT from February 2023 which showed evidence of right-sided hydronephrosis. This time she denies any flank pain, gross hematuria or dysuria. Her creatinine is stable at 0.5. Denies any previous history of kidney stones or any previous interventions for her right kidney. Review of Systems - Constitutional Denies fever, Denies weight loss - Cardiovascular Denies chest pain, Denies shortness of breath - Respiratory Denies cough, Denies 7 - Gastrointestinal Reports nausea, Reports vomiting - Integumentary Denies rash, Denies unusual bruising - Neurological Denies headaches, Denies syncope Past Medical History Past Medical History: Asthma, Cancer Additional Past Medical History / Comment(s): Bronchitis, chronic low back pain/mild scoliosis, sinus problems/seasonal allergies. ovarian cancer-recently diagnosed in past 3 weeks f/u with Katie and now surgeon in [place] for 11/15/20. Maligant ascites. Chemo started November 2020 OVARIAN CA History of Any Multi-Drug Resistant Organisms: None Reported Past Surgical History: Hernia Repair Additional Past Surgical History / Comment(s): Umbilical hernia, D&Cs, wisdom teeth extractions. multi Paracentesis, current chemotherapy. RADICAL OVARIAN SURGERY (HYSTERECTOMY, FALLOPIAN TUBE, OVARIAN AND OTHER EXPLORATORY PROCEDURES) Mediport Additional Past Anesthesia/Blood Transfusion Reaction / Comm: Hypotensive with hernia surgery Past Psychological History: Anxiety Smoking Status: Never smoker - Past Family History Mother Family Medical History: Coronary Artery Disease (CAD) Additional Family Medical History / Comment(s): Mother is healthy Father Family Medical History: Cancer Additional Family Medical History / Comment(s): Father is at 85 yrs. He had colon cancer in age 50s Medications and Allergies Home Medications Medication Instructions Recorded Confirmed Type Metoprolol Tartrate [Lopressor] 25 mg PO BID #60 tab 11/18/20 06/09/24 Rx Apixaban [Eliquis] 5 mg PO BID 10/16/21 06/09/24 History Losartan Potassium [Cozaar] 12.5 mg PO DAILY 10/16/21 06/09/24 History ALPRAZolam [Xanax] 0.25 mg PO DAILY PRN 06/09/24 06/09/24 History Albuterol Sulfate [Ventolin HFA] 2 puff INHALATION RT-Q4H PRN 06/09/24 06/09/24 History Ondansetron [Zofran] 4 mg PO Q6H PRN 06/09/24 06/09/24 History predniSONE [Deltasone] 20 mg PO DAILY 06/09/24 06/09/24 History Allergies Allergy/AdvReac Type Severity Reaction Status Date / Time carboplatin Allergy Anaphylaxis Verified 06/09/24 07:16 Surgical - Exam Vital Signs Temp Pulse Resp BP Pulse Ox 98.1 F 80 18 106/67 99 06/08/24 21:01 06/08/24 21:01 06/08/24 21:01 06/08/24 21:01 06/08/24 21:01 - General no distress, no pain - Eyes normal ocular movement, no pale - ENT normal nares, normal mucosa - Respiratory normal expansion, normal respiratory effort - Abdomen Abdomen: soft, non tender, no distended - Psychiatric oriented to time, oriented to person, oriented to place Results - Labs 06/08/24 21:50 06/08/24 21:50 Abnormal Lab Results - Last 24 Hours (Table) 06/08/24 06/08/24 06/09/24 Range/Units 21:50 21:50 09:50 Neutrophils # 8.3 H (1.3-7.7) k/uL Lymphocytes # 0.6 L (1.0-4.8) k/uL Sodium 135 L (137-145) mmol/L BUN 21 H (7-17) mg/dL Glucose 131 H (74-99) mg/dL AST 42 H (14-36) U/L Urine Appearance Cloudy H (Clear) Urine Protein 1+ H (Negative) Urine Ketones 1+ H (Negative) Urine Blood Trace H (Negative) Ur Leukocyte Esterase Moderate H (Negative) Urine WBC 42 H (0-5) /hpf Urine Bacteria Rare H (None) /hpf Urine Mucus Moderate H (None) /hpf Diabetes panel 06/08/24 Range/Units 21:50 Sodium 135 L (137-145) mmol/L Potassium 3.6 (3.5-5.1) mmol/L Chloride 102 (98-107) mmol/L Carbon Dioxide 24 (22-30) mmol/L BUN 21 H (7-17) mg/dL Creatinine 0.58 (0.52-1.04) mg/dL Glucose 131 H (74-99) mg/dL Calcium 9.6 (8.4-10.2) mg/dL AST 42 H (14-36) U/L ALT 19 (4-34) U/L Alkaline Phosphatase 119 (38-126) U/L Total Protein 6.8 (6.3-8.2) g/dL Albumin 4.2 (3.5-5.0) g/dL Calcium panel 06/08/24 Range/Units 21:50 Calcium 9.6 (8.4-10.2) mg/dL Albumin 4.2 (3.5-5.0) g/dL Pituitary panel 06/08/24 Range/Units 21:50 Sodium 135 L (137-145) mmol/L Potassium 3.6 (3.5-5.1) mmol/L Chloride 102 (98-107) mmol/L Carbon Dioxide 24 (22-30) mmol/L BUN 21 H (7-17) mg/dL Creatinine 0.58 (0.52-1.04) mg/dL Glucose 131 H (74-99) mg/dL Calcium 9.6 (8.4-10.2) mg/dL Adrenal panel 06/08/24 Range/Units 21:50 Sodium 135 L (137-145) mmol/L Potassium 3.6 (3.5-5.1) mmol/L Chloride 102 (98-107) mmol/L Carbon Dioxide 24 (22-30) mmol/L BUN 21 H (7-17) mg/dL Creatinine 0.58 (0.52-1.04) mg/dL Glucose 131 H (74-99) mg/dL Calcium 9.6 (8.4-10.2) mg/dL Total Bilirubin 0.9 (0.2-1.3) mg/dL AST 42 H (14-36) U/L ALT 19 (4-34) U/L Alkaline Phosphatase 119 (38-126) U/L Total Protein 6.8 (6.3-8.2) g/dL Albumin 4.2 (3.5-5.0) g/dL Assessment and Plan Assessment: 58-year-old female history of metastatic ovarian cancer, chronic right-sided hydronephrosis dating back at least to February 2023. Hydronephrosis is stable she is asymptomatic from it and her kidney function is stable. Given the lack of symptoms and stability of kidney function no indication for stents at this time. If her clinical status changes we can be contacted back otherwise she should continue to follow-up with her oncologist and no further intervention is needed from our end
[2024-06-09] MEDS: SCOPOLAMINE 1 MG/72 HR PATCH TRANSDERM SCH (19:48)
[2024-06-09] MEDS: PROCHLORPERAZINE INJ 10 MG/2 ML VIAL IVP PRN (19:48)
[2024-06-09] MEDS ORDERED: DOCUSATE 100 MG CAP PO SCH (21:00)
--- NOTE | 2024-06-09 21:52 | P.CONS ---
History of Present Illness - Reason for Consult Consult date: 06/09/24 hx ovarian cancer Requesting physician: Donell Dubon - Chief Complaint n/v, abd pain - History of Present Illness Patient is a 58 year old female with a significant history of ovarian cancer. She had followd up with Dr. Wilson in the past, but is priya beckford under the care of Dr. Dsouza at [facility]. She was initially seen in consult at [facility] on 10/31/20. The patient had presented with progressive abdominal distention over 1-2 weeks causing tightness and discomfort. She had a CT of the abdomen and pelvis on presentation revealing significant ascites, and probable omental caking. 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 Baseline CA-125 was greater than 12,000. Case was discussed with Dr. Steen on the phone, who indicated it would be reasonable to start the patient on neoadjuvant carboplatin and Taxol. The pt received 3 cycles neoadjuvant chemo. Treatment was then held, as per discussion with [facility]. The patient then proceeded to surgery on 02/06/21. She resumed chemo on 03/14/21. she is status post 3 cycles (total 6), completing those on 04/25/21. Case was discussed at [facility] after completion of 6 cycles of chemotherapy. They recommended maintenance bevacizumab + PARP inhibitor, if the patient had HBOC related mutations. NGS was ordered for the same. In the meantime she started maintenance bevacizumab on 06/17/21. Her NGS revealed a BRCA2 mutation which was a VUS. This was discussed with [facility]. They felt that it be reasonable to treat her with Lynnparza based on the above and she started that 300 mg twice a day in early 08/03. However she stopped it after about 2 weeks because of progressive side effects. She was therefore changed to Niraparib ( Zejula) 200 mg per day. Due to disease progr ession, her regimen was changed to carboplatin and Gemzar. The patient started the same on 03/06/22, but decided to discontinue treatment after day 1 cycle 1. She agreed to resume treatment when repeat labs in late 05/04 showed an increase in CA-125. She completed 3 cycles of Gemzar/carboplatin on 06/24/22, but stopped treatment after cycle 3 and was subsequenlty lost to f/u and has since been following with [facility]. Currently on treatment with Taxol and Avastin, completing cycle 4 on 06/07/24. Per pt, she had had repeat CT CAP on 05/22/24 at [place], which showed positive treatment response. Patient presented to the emergency room with complaints of nausea vomiting and abdominal pain. Patient states after her previous cycle of chemo she began to experience nausea vomiting which was similar to current symptoms. Patient states symptoms again presented after receiving most recent chemotherapy. She states that she has not been taking her antiemetics as she should and by the time her symptoms start progressing "it is too late". She also reports issues with constipation, last BM was last night but states BM was small. At today's visit patient reports nausea vomiting has improved and the abdominal pain has resolved. UA suspicious for UTI, urine culture pending. Rocephin has been started. Renal ultrasound showed mild to moderate right hydronephrosis was no obstruction noted. CT AP has been ordered. Count stable, WBC 9.3, hemoglobin 12.2, platelets 356,000. Creatinine 0.58, GFR greater than 90. Review of Systems 10 point ROS is negative except as stated in the HPI Past Medical History Past Medical History: Asthma, Cancer Additional Past Medical History / Comment(s): Bronchitis, chronic low back pain/mild scoliosis, sinus problems/seasonal allergies. ovarian cancer-recently diagnosed in past 3 weeks f/u with Katie and now surgeon in [place] for 11/15/20. Maligant ascites. Chemo started November 2020 OVARIAN CA History of Any Multi-Drug Resistant Organisms: None Reported Past Surgical History: Hernia Repair Additional Past Surgical History / Comment(s): Umbilical hernia, D&Cs, wisdom teeth extractions. multi Paracentesis, current chemotherapy. RADICAL OVARIAN SURGERY (HYSTERECTOMY, FALLOPIAN TUBE, OVARIAN AND OTHER EXPLORATORY PROCEDURES) Mediport Additional Past Anesthesia/Blood Transfusion Reaction / Comm: Hypotensive with hernia surgery Past Psychological History: Anxiety Smoking Status: Never smoker - Past Family History Mother Family Medical History: Coronary Artery Disease (CAD) Additional Family Medical History / Comment(s): Mother is healthy Father Family Medical History: Cancer Additional Family Medical History / Comment(s): Father is at 85 yrs. He had colon cancer in age 50s Medications and Allergies Home Medications Medication Instructions Recorded Confirmed Type Metoprolol Tartrate [Lopressor] 25 mg PO BID #60 tab 11/18/20 06/09/24 Rx Apixaban [Eliquis] 5 mg PO BID 10/16/21 06/09/24 History Losartan Potassium [Cozaar] 12.5 mg PO DAILY 10/16/21 06/09/24 History ALPRAZolam [Xanax] 0.25 mg PO DAILY PRN 06/09/24 06/09/24 History Albuterol Sulfate [Ventolin HFA] 2 puff INHALATION RT-Q4H PRN 06/09/24 06/09/24 History Ondansetron [Zofran] 4 mg PO Q6H PRN 06/09/24 06/09/24 History predniSONE [Deltasone] 20 mg PO DAILY 06/09/24 06/09/24 History Allergies Allergy/AdvReac Type Severity Reaction Status Date / Time carboplatin Allergy Anaphylaxis Verified 06/09/24 07:16 Physical Exam Vitals: Vital Signs Temp Pulse Pulse Resp BP BP Pulse Ox 06/09/24 08:33 98.2 F 109 H 18 122/76 96 06/09/24 08:10 98.1 F 99 16 122/88 98 06/09/24 06:46 97.9 F 84 16 129/89 98 06/09/24 03:42 97.2 F L 92 16 122/81 96 06/09/24 03:03 105 H 18 108/79 97 06/08/24 23:05 86 18 110/70 97 06/08/24 21:01 98.1 F 80 18 106/67 99 Intake and Output 06/08/24 06/09/24 06/09/24 22:59 06:59 14:59 Other: # Voids 1 Weight 62.596 kg 62.596 kg - Constitutional General appearance: average body habitus, no acute distress - EENT Eyes: anicteric sclerae, EOMI ENT: hearing grossly normal - Respiratory Respiratory: bilateral: CTA - Cardiovascular Rhythm: regular - Gastrointestinal abd distended and firm, no tenderness - Integumentary Integumentary: no cyanotic, no jaundiced - Neurologic Neurologic: CNII-XII intact - Musculoskeletal Musculoskeletal: strength equal bilaterally - Psychiatric Psychiatric: A&O x's 3 Results CBC & Chem 7: 06/08/24 21:50 06/08/24 21:50 Labs: Abnormal Lab Results - Last 24 Hours (Table) 06/08/24 06/08/24 06/09/24 Range/Units 21:50 21:50 09:50 Neutrophils # 8.3 H (1.3-7.7) k/uL Lymphocytes # 0.6 L (1.0-4.8) k/uL Sodium 135 L (137-145) mmol/L BUN 21 H (7-17) mg/dL Glucose 131 H (74-99) mg/dL AST 42 H (14-36) U/L Urine Appearance Cloudy H (Clear) Urine Protein 1+ H (Negative) Urine Ketones 1+ H (Negative) Urine Blood Trace H (Negative) Ur Leukocyte Esterase Moderate H (Negative) Urine WBC 42 H (0-5) /hpf Urine Bacteria Rare H (None) /hpf Urine Mucus Moderate H (None) /hpf US - abdomen: report reviewed Assessment and Plan (1) Abdominal pain Current Visit: Yes Status: Acute Priority: High Code(s): R10.9 - UNSPECIFIED ABDOMINAL PAIN SNOMED Code(s): 93584361 (2) History of ovarian cancer Current Visit: Yes Status: Acute Priority: High Code(s): Z85.43 - PERSONAL HISTORY OF MALIGNANT NEOPLASM OF OVARY SNOMED Code(s): 350815726 (3) Nausea and vomiting Current Visit: Yes Status: Acute Priority: High Code(s): R11.2 - NAUSEA WITH VOMITING, UNSPECIFIED SNOMED Code(s): 29810827 Plan: N/V, abd pain Patient presented to the emergency room with complaints of nausea vomiting and abdominal pain. Patient reports similar symptoms with last 2 cycles of treatment. Also reporting issues with constipation, last BM was last night but states BM was small. -UA suspicious for UTI, urine culture pending. Rocephin has been started. -Renal ultrasound showed mild to moderate right hydronephrosis, no obstruction noted. -CT AP has been ordered for further evaluation -IV fluids and antiemetics ordered. Colace added for constipation Ovarian cancer: -Oncology history as dictated in HPI -Patient follows with Dr. Dsouza at [facility]. Currently on treatment with Taxol and Avastin, completing cycle 4 on 06/07/24. Per pt, she had had repeat CT CAP on 05/22/24 at [place], which showed positive treatment response. -Counts stable, hgb 12.2, WBC 9.3, plt 356 -Continue f/u and management with primary oncologist attests: I have seen and examined patient, performed H&P, developed impression and plan of care. Discussed with dictator. Agree with documentation, dictated as a scribe
--- NOTE | 2024-06-10 08:10 | CT ---
EXAMINATION TYPE: CT abdomen pelvis wo con DATE OF EXAM: 06/10/2024 HISTORY: Ovarian CA. Abdominal pain, r/o obstruction. CT DLP: 697 mGycm. Automated Exposure Control for Dose Reduction was Utilized. TECHNIQUE: CT scan of the abdomen and pelvis is performed without oral or IV contrast. COMPARISON: 03/03/2023 FINDINGS: Within the limitations of a non-contrast study, the following observations are made. There is a large left pleural effusion. There is left lung opacification likely compressive atelectas is secondary to the large effusion. The right lung is clear. Gallbladder is normal and there is no gallstone, wall thickening, pericholecystic fluid or distention . There is no biliary ductal dilatation. There is no organomegaly of the liver, pancreas, spleen or adrenal glands. There are no renal calcifications. There is persistent mild hydronephrosis of the right kidney. The caliber of the abdominal aorta is normal and there is no retroperitoneal adenopathy or hemorrhage . There is diffuse progressive multifocal calcification of the peritoneal surface throughout the abdome n also involving omental masses and portions of the small bowel serosa consistent with the history of ovarian cancer with metastatic disease. There is a loculated fluid collection in the left upper quadrant. There are multiple dilated fluid fi lled bowel loops with intraluminal gas consistent with a distal bowel obstruction although the transi tion point cannot be definitively determined. There is no pelvic mass or adenopathy.. There is surgical absence of the uterus. No destructive osseous lesions are seen. IMPRESSION: 1. Interval development of a large left pleural effusion and left lower lobe compressive atelectasis. 2. [id number] loculated ascites in the left upper quadrant. 3. Markedly dilated small bowel loops consistent with small bowel obstruction as described above. 4. Diffuse calcified peritoneal implants, omental implants and bowel serosal implants, significantly increased compared to the prior study. 5. Stable mild right-sided hydronephrosis. [facility], , 06/10/2024 8:08 AM
[2024-06-10 09:56] LABS: HCT 33.9 % (37.2-46.3); HGB 11.1 g/dL (12.0-15.0); MCH 31.7 pg (27.0-32.0); MCHC 32.7 g/dL (32.0-37.0); MCV 96.9 FL (80.0-97.0); Mean Platelet Volume 10.3 FL (9.5-12.2); NRBC Per 100 WBC 0 X 10*3/uL (0.00-0.01); Platelet Count 292 X 10*3/uL (140-440); RDW 14.8 % (11.5-14.5); WBC 3.16 X 10*3/uL (4.50-10.00)
[2024-06-10 11:16] LABS: ALT 14 U/L (8-44); AST 28 U/L (13-35); Albumin 3.7 g/dL (3.8-4.9); Albumin/Globulin Ratio 1.68 Ratio (1.60-3.17); Alkaline Phosphatase 91 U/L (41-126); Blood Urea Nitrogen 19.3 mg/dL (9.0-27.0); Calcium 9.1 mg/dL (8.7-10.3); Carbon Dioxide 21.3 mmol/L (21.6-31.8); Chloride 104 mmol/L (96-109); Globulin 2.2 g/dL (1.6-3.3); Glucose 104 mg/dL (70-110); Potassium 3.7 mmol/L (3.5-5.5); Sodium 139 mmol/L (135-145); Total Bilirubin 0.6 mg/dL (0.3-1.2); Total Protein 5.9 g/dL (6.2-8.2)
[2024-06-10 14:29] VITALS: BP 128/83; PULSE 94; RESP 16; TEMP 98
--- NOTE | 2024-06-10 16:12 | P.GSCN ---
History of Present Illness History of present illness: This is a 58-year-old female with history of metastatic ovarian cancer currently on chemotherapy. She had followd up with Dr. Wilson in the past, but is monchoe shakeel under the care of Dr. Dsouza at [facility]. She was initially seen in consult at [facility] on 10/31/20. The patient had presented with progressive abdominal distention over 1-2 weeks causing tightness and disco mfort. She had a CT of the abdomen and pelvis on presentation revealing significant ascites, and probable omental caking. 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 Baseline CA-125 was greater than 12,000. This current visit consisted of persistent nausea and vomiting 36- 48hrs after chemotherapy infusion. She currently denies nausea or vomiting and would like to go home. She currently denies abdominal pain and admits to recent flatus. Denies fevers, chills, shortness of breath and chest pain. Review of Systems - Constitutional Reports as per HPI Past Medical History Past Medical History: Asthma, Cancer Additional Past Medical History / Comment(s): Bronchitis, chronic low back pain/mild scoliosis, sinus problems/seasonal allergies. ovarian cancer-recently diagnosed in past 3 weeks f/u with Katie and now surgeon in [place] for 11/15/20. Maligant ascites. Chemo started November 2020 OVARIAN CA History of Any Multi-Drug Resistant Organisms: None Reported Past Surgical History: Hernia Repair Additional Past Surgical History / Comment(s): Umbilical hernia, D&Cs, wisdom teeth extractions. multi Paracentesis, current chemotherapy. RADICAL OVARIAN SURGERY (HYSTERECTOMY, FALLOPIAN TUBE, OVARIAN AND OTHER EXPLORATORY PROCEDURES) Mediport Additional Past Anesthesia/Blood Transfusion Reaction / Comm: Hypotensive with hernia surgery Past Psychological History: Anxiety Smoking Status: Never smoker - Past Family History Mother Family Medical History: Coronary Artery Disease (CAD) Additional Family Medical History / Comment(s): Mother is healthy Father Family Medical History: Cancer Additional Family Medical History / Comment(s): Father is at 85 yrs. He had colon cancer in age 50s Medications and Allergies Home Medications Medication Instructions Recorded Confirmed Type Metoprolol Tartrate [Lopressor] 25 mg PO BID #60 tab 11/18/20 06/09/24 Rx Apixaban [Eliquis] 5 mg PO BID 10/16/21 06/09/24 History Losartan Potassium [Cozaar] 12.5 mg PO DAILY 10/16/21 06/09/24 History ALPRAZolam [Xanax] 0.25 mg PO DAILY PRN 06/09/24 06/09/24 History Albuterol Sulfate [Ventolin HFA] 2 puff INHALATION RT-Q4H PRN 06/09/24 06/09/24 History Ondansetron [Zofran] 4 mg PO Q6H PRN 06/09/24 06/09/24 History predniSONE [Deltasone] 20 mg PO DAILY 06/09/24 06/09/24 History Allergies Allergy/AdvReac Type Severity Reaction Status Date / Time carboplatin Allergy Anaphylaxis Verified 06/09/24 07:16 Surgical - Exam Osteopathic Statement: *. No significant issues noted on an osteopathic structural exam other than those noted in the History and Physical/Consult. Vital Signs Temp Pulse Resp BP Pulse Ox 98.1 F 80 18 106/67 99 06/08/24 21:01 06/08/24 21:01 06/08/24 21:01 06/08/24 21:01 06/08/24 21:01 gen: nad heent: atraumatic, normocephalic, eyes perrla oral mucosa dry cv: rrr pul: non labored breathing abd: soft/firm, min distention, non tender, no guarding or rebound tenderness Results - Labs 06/10/24 06:23 06/10/24 06:23 Abnormal Lab Results - Last 24 Hours (Table) 06/10/24 06/10/24 Range/Units 06:23 06:23 WBC 3.16 L (4.50-10.00) X 10*3/uL RBC 3.50 L (4.10-5.20) X 10*6/uL Hgb 11.1 L (12.0-15.0) g/dL Hct 33.9 L (37.2-46.3) % RDW 14.8 H (11.5-14.5) % Carbon Dioxide 21.3 L (21.6-31.8) mmol/L Anion Gap 13.70 H (4.00-12.00) mmol/L Creatinine 0.5 L (0.6-1.5) mg/dL BUN/Creatinine Ratio 38.60 H (12.00-20.00) Ratio Total Protein 5.9 L (6.2-8.2) g/dL Albumin 3.7 L (3.8-4.9) g/dL Microbiology - Last 24 Hours (Table) 06/09/24 09:50 Urine Culture - Final Urine,Voided Diabetes panel 06/10/24 Range/Units 06:23 Sodium 139 (135-145) mmol/L Potassium 3.7 (3.5-5.5) mmol/L Chloride 104 (96-109) mmol/L Carbon Dioxide 21.3 L (21.6-31.8) mmol/L BUN 19.3 (9.0-27.0) mg/dL Creatinine 0.5 L (0.6-1.5) mg/dL Glucose 104 (70-110) mg/dL Calcium 9.1 (8.7-10.3) mg/dL AST 28 (13-35) U/L ALT 14 (8-44) U/L Alkaline Phosphatase 91 (41-126) U/L Total Protein 5.9 L (6.2-8.2) g/dL Albumin 3.7 L (3.8-4.9) g/dL Calcium panel 06/10/24 Range/Units 06:23 Calcium 9.1 (8.7-10.3) mg/dL Albumin 3.7 L (3.8-4.9) g/dL Pituitary panel 06/10/24 Range/Units 06:23 Sodium 139 (135-145) mmol/L Potassium 3.7 (3.5-5.5) mmol/L Chloride 104 (96-109) mmol/L Carbon Dioxide 21.3 L (21.6-31.8) mmol/L BUN 19.3 (9.0-27.0) mg/dL Creatinine 0.5 L (0.6-1.5) mg/dL Glucose 104 (70-110) mg/dL Calcium 9.1 (8.7-10.3) mg/dL Adrenal panel 06/10/24 Range/Units 06:23 Sodium 139 (135-145) mmol/L Potassium 3.7 (3.5-5.5) mmol/L Chloride 104 (96-109) mmol/L Carbon Dioxide 21.3 L (21.6-31.8) mmol/L BUN 19.3 (9.0-27.0) mg/dL Creatinine 0.5 L (0.6-1.5) mg/dL Glucose 104 (70-110) mg/dL Calcium 9.1 (8.7-10.3) mg/dL Total Bilirubin 0.6 (0.3-1.2) mg/dL AST 28 (13-35) U/L ALT 14 (8-44) U/L Alkaline Phosphatase 91 (41-126) U/L Total Protein 5.9 L (6.2-8.2) g/dL Albumin 3.7 L (3.8-4.9) g/dL Assessment and Plan Assessment: 58 yo female s/p b/l salpingoophorectomy with omental caking on chemo regimen ctap reviewed demonstrated mild-moderate loops of bowel with large volume ascites and extensive omental caking -patient denies abdominal pain, nausea and vomiting and would like to go home, patient admits to previous episodes 48 hrs after chemotherapy -she does not have a surgical abdomen at this time however she can quickly convert given her disease process -discuss w/ about discharge but patient must return to the ER if symtpoms persist Time with Patient: Greater than 30
--- NOTE | 2024-06-10 17:00 | P.DS ---
Providers Date of admission: 06/09/24 06:28 Expected date of discharge: 06/10/24 Attending physician: Donell Dubon Consults: 06/09/24 07:42 Consult Physician Routine Consulting Provider: Pantera Wilson Consult Reason/Comments: Ovarian CA with Mets Do you want consulting provider notified?: Yes 06/09/24 10:30 Consult Physician Routine Consulting Provider: Bryan Jesus Consult Reason/Comments: R Hydronephrosis Do you want consulting provider notified?: Yes 06/10/24 14:33 Consult Physician Routine Consulting Provider: Karson Lu Consult Reason/Comments: small bowel obstruction Do you want consulting provider notified?: Yes Primary care physician: [facility] Course: 58-year-old with active medical history of ovarian cancer was diagnosed over 2 years ago been treated at [facility] had few rounds of chemotherapy in the past she had 2020 total hysterectomy and bilateral oophorectomy has been seen oncology in town Dr. Diogo Diggs at [facility] on a regular basis with looks like patient started another round of treatment which most likely immunotherapy more than mostly Taxol and Avastin received the last dose this last Wednesday. She become sick with nausea vomiting and abdominal pain on apparently she becomes sick in the past after chemotherapy normally presented to the emergency department this morning with increased abdominal discomfort with intractable nausea and vomiting could not keep any food or fluid down become quite bit dehydrated going back in her history it looks like she had same thing a year ago after 1 round of her chemotherapy was in the hospital for 48 hours for severe dehydration with intractable nausea and vomiting. She was assessed and evaluated by the emergency department no CAT scan done laboratory value shows mild dehydration only she was started on Zofran IV hydration could not keep anything down for few hours decided to admit patient to the hospital for symptoms control. Patient is having distended abdomen with mild discomfort in the right side apparently had no bowel obstruction in the past and only surgery and abdominal area was her total hysterectomy and oophorectomy for her cancer back in . Also patient is survival of cardiomyopathy nonischemic type back from 2020 still on medical management for it seeing cardiology regularly. She had a history of pulmonary embolism has been on anticoagulation for the last 2 years. UA done shortly after her admission came back positive also ultrasound of the kidney shows hydronephrosis of the right side which exist from an older CAT scan in which will consult nephrology for to make sure part of the discomfort she has in the right side is not consistent with it but another CAT scan will be ordered at this point. _Recurrent abdominal pain: Could become relation of complication related to chemotherapy along with her hydronephrosis of the right side to be partial bowel obstruction and severe gastritis, patient be hospitalized continue IV hydration PPI IV Zofran will consult nephrology for hydronephrosis and treat her urinary tract infection as well and if this is complication related to chemotherapy hopefully will be better in 48 hours. _Intractable nausea and vomiting: Continue Zofran along with hydration. _History of ovarian cancer post total hysterectomy and oophorectomy has been doing chemotherapy and follow-up with [facility] oncology at [facility] since 2020. _Moderate dehydration with BUN/creatinine ratio over 40 continue hydration with antiemetic medication and symptoms controlled. _Mild hyperglycemia: Accu-Chek with sliding scales coverage switch IV to 0.9 or 0.45. _History of cardiomyopathy with Takotsubo syndrome has been on metoprolol along with furosemide and losartan. _Right-sided hydronephrosis: Will consult urology CAT scan of the abdomen will be done to exclude any possibility of scar tissue causing problem partially the discomfort she has is more consistent with a right side. _Urinary tract infection with positive UA we will start patient on Rocephin 1 g daily waiting for the final culture. _Hypertension: Remain on losartan and metoprolol. _Tachycardia: Obviously patient has been on metoprolol with pulse rate has been well-controlled. _History of asthma: With no flareup lately will resume rescue inhaler on as- needed basis. _History of pulmonary embolism has been on anticoagulation with Eliquis 5 mg twice a day continue vacation. Patient had repeat CT of the abdomen completed which revealed mild to moderate loops of bowel with large volume ascites and extensive omental caking; general surgery was consulted; patient insisted on being discharged; given lack of abdominal pain or nausea or vomiting, and reviewing CT of the abdomen, surgical service did not recommend any immediate surgical intervention; patient promises to return to the emergency room if symptoms worsen Plan - Discharge Summary New Discharge Prescriptions: Continue Metoprolol Tartrate [Lopressor] 25 mg PO BID #60 tab Apixaban [Eliquis] 5 mg PO BID ALPRAZolam [Xanax] 0.25 mg PO DAILY PRN PRN Reason: Anxiety Ondansetron [Zofran] 4 mg PO Q6H PRN PRN Reason: Nausea Losartan Potassium [Cozaar] 12.5 mg PO DAILY predniSONE [Deltasone] 20 mg PO DAILY Albuterol Sulfate [Ventolin HFA] 2 puff INHALATION RT-Q4H PRN PRN Reason: Shortness Of Breath Discharge Medication List Metoprolol Tartrate [Lopressor] 25 mg PO BID #60 tab 11/18/20 [Rx] Apixaban [Eliquis] 5 mg PO BID 10/16/21 [History] Losartan Potassium [Cozaar] 12.5 mg PO DAILY 10/16/21 [History] ALPRAZolam [Xanax] 0.25 mg PO DAILY PRN 06/09/24 [History] Albuterol Sulfate [Ventolin HFA] 2 puff INHALATION RT-Q4H PRN 06/09/24 [History] Ondansetron [Zofran] 4 mg PO Q6H PRN 06/09/24 [History] predniSONE [Deltasone] 20 mg PO DAILY 06/09/24 [History] Follow up Appointment(s)/Referral(s): Margareth Mays MD [Primary Care Provider] - 1-2 days Discharge Disposition: HOME SELF-CARE
[2024-06-16 15:06] LABS: Glucose,Whole Blood 92 mg/dL (70-110)
[2024-06-16 15:06] LABS: Glucose,Whole Blood 95 mg/dL (70-110)
[2024-06-16 15:06] LABS: Glucose,Whole Blood 104 mg/dL (70-110)
[2024-06-16 15:07] LABS: Glucose,Whole Blood 98 mg/dL (70-110)
[2024-06-16 15:07] LABS: Glucose,Whole Blood 100 mg/dL (70-110)
[2024-06-16 15:07] LABS: Glucose,Whole Blood 99 mg/dL (70-110)
== END 2024-06-10 18:13 | disposition home or self-care (01) ==
LOC: EC 20:53 → INTOOBSV 06-09 06:28 → 5NMEDONC 06-09 06:28 → UNDODISOB 06-10 18:13 → UNDODISIN 06-10 18:13
PROVIDERS: ADMIT Internal Medicine Geriatric Medicine; ATTEND Internal Medicine Geriatric Medicine
DX: R10.9 Unspecified abdominal pain (principal); R11.2 Nausea with vomiting, unspecified; E86.0 Dehydration; R18.8 Other ascites; R73.9 Hyperglycemia, unspecified; I42.8 Other cardiomyopathies; I51.81 Takotsubo syndrome; N13.6 Pyonephrosis; F41.9 Anxiety disorder, unspecified; I10 Essential (primary) hypertension; J45.909 Unspecified asthma, uncomplicated; Z92.21 Personal history of antineoplastic chemotherapy; Z90.710 Acquired absence of both cervix and uterus; Z86.711 Personal history of pulmonary embolism; Z85.43 Personal history of malignant neoplasm of ovary; Z79.899 Other long term (current) drug therapy; Z79.01 Long term (current) use of anticoagulants; Z80.0 Family history of malignant neoplasm of digestive organs
CPT/HCPCS: 96376 ×3; 96361 ×4; 96365; 96366 ×2; 96372; 96375 ×2; 99284; 36415; 80053 ×2; 82150; 83605; 83690; 85025; 85027; 81001; 87086; 76770; 74176; G0378 ×2; J0780 ×2; J2405 ×3; J0696 ×2; J1642

== ENCOUNTER → 2024-08-23 | Outpatient (CLI) | payer OTHER ==
--- NOTE | 2024-08-24 09:41 | US ---
EXAMINATION TYPE: US carotid duplex BILAT DATE OF EXAM: 08/23/2024 COMPARISON: NONE CLINICAL INDICATION: Female, 58 years old with history of G459 TIA; TIA per order- pt states she had an episode of burning/tingling/numbness in her left hand. Prior smoker. Additional History: G45.9 Transient Ischemic Attack (TIA) various Most positive vascular findings of extracranial vessels; specified laterality eye & ear disorders TECHNIQUE: Grayscale, color Doppler and spectral Doppler evaluation of the bilateral carotid systems and vertebral arteries. Indirect Doppler criteria was utilized. FINDINGS: EXAM MEASUREMENTS: RIGHT: Peak Systolic Velocity (PSV) cm/sec ----- Right CCA: 95.8 ----- Right ICA: 93.0 ----- Right ECA: 68.8 ICA/CCA ratio: 1.0 RIGHT: End Diastole cm/sec ----- Right CCA: 26.0 ----- Right ICA: 32.5 ----- Right ECA: 13.9 LEFT: Peak Systolic Velocity (PSV) cm/sec ----- Left CCA: 84.2 ----- Left ICA: 76.4 ----- Left ECA: 52.6 ICA/CCA ratio: 0.9 LEFT: End Diastole cm/sec ----- Left CCA: 21.5 ----- Left ICA: 24.1 ----- Left ECA: 11.3 VERTEBRALS (direction of flow): Right Vertebral: Antegrade Left Vertebral: Antegrade Rhythm: Normal HOTEL ROOM ATTENDANT NOTES: *Some plaque seen right ICA. No elevated velocities. ?Question possible abnormal l eft vertebral waveform- Appearance of loss of end diastolic flow. Intimal thickening is evident. Color Doppler imaging shows patency with blood flow throughout the carotid artery. IMPRESSION: 1. Atheromatous plaquing right internal carotid origin without significant flow-limiting stenosis. Criteria for Assigning % of Stenosis / Diameter reduction (Estimation based on the indirect measurements of the internal carotid artery velocities (ICA PSV). 1. Normal (no stenosis)=ICA PSV < 125 cm/s: ratio < 2.0: ICA EDV<40 cm/s. 2. Less than 50% stenosis=ICA PSV < 125 cm/s: ratio < 2.0: ICA EDV<40 cm/s. 3. 50 to 69% stenosis=ICA PSV of 125 to 230 cm/s: ration 2.0 ? 4.0: ICA EDV 40-100 cm/s. 4. Greater than 70% stenosis to near occlusion= ICA PSV > 230 cm/s: ratio > 4.0: ICA EDV > 100 cm/s. 5. Near occlusion= ICA PSV velocities may be low or undetectable: variable ratio and ICA EDV. 6. Total occlusion=unable to detect flow. [facility], , 08/24/2024 9:39 AM
--- NOTE | 2024-09-02 05:22 | EM ---
EVENT MONITOR 7-day monitor. INDICATION: TIA. This 7-day event monitor showed sinus rhythm with runs of nonsustained VT. The longest of which was about 8 beats. There were no episodes of atrial fibrillation or flutter. There was 1 short self-limited run of SVT noted. CONCLUSIONS: 7-day event monitor shows sinus rhythm with nonsustained ventricular tachycardia and paroxysmal supraventricular tachycardia. MMODL / IJN: [id number] /
== END | disposition home or self-care (01) ==
LOC: RADECHMAIN 08:12
PROVIDERS: ATTEND Family Medicine
DX: I65.21 Occlusion and stenosis of right carotid artery (principal); I47.10 Supraventricular tachycardia, unspecified; Z86.73 Personal history of transient ischemic attack (TIA), and cerebral infarction without residual deficits
CPT/HCPCS: 93270; 93880

== ENCOUNTER → 2024-10-12 | Outpatient (CLI) | payer OTHER ==
--- NOTE | 2024-10-12 17:49 | CA ---
Transthoracic Echo Report Name: Lexii Nagel Age: 58 Gender: F : 1965 Exam Date: 10/12/2024 15:01 Exam Location: [facility] Ht (in): 65 Wt (lb): 125 Ordering Physician: Donell Dubon MD Attending/Referring Phys: Josep Heath [facility] Chief Orthoptist Laura Hernández RDCS Procedure CPT: Indications: G45.9 TIA Cardiac Hx: Technical Quality: Fair Contrast 1: Total Dose (mL): Contrast 2: Total Dose (mL): MEASUREMENTS (Male / Female) Normal Values 2D ECHO LV Diastolic Diameter PLAX 6.2 cm 4.2 - 5.9 / 3.9 - 5.3 cm LV Systolic Diameter PLAX 5.5 cm IVS Diastolic Thickness 0.6 cm 0.6 - 1.0 / 0.6 - 0.9 cm LVPW Diastolic Thickness 0.6 cm 0.6 - 1.0 / 0.6 - 0.9 cm LV Relative Wall Thickness 0.2 LVOT Diameter 2.6 cm LV Diastolic Volume MOD BP 198.3 cm??? 67 - 155 / 56 - 104 cm??? LV Systolic Volume MOD BP 159.1 cm??? 22 - 58 / 19 - 49 cm??? LV Ejection Fraction MOD BP 19.8 % >= 55 % LV Cardiac Index MOD BP 2336.5 cm???/min???m??? LV Diastolic Volume MOD 4C 192.1 cm??? LV Systolic Volume MOD 4C 155.2 cm??? LV Ejection Fraction MOD 4C 19.2 % LV Cardiac Index MOD 4C 2201.4 cm???/min???m??? LV Diastolic Length 4C 8.9 cm LV Systolic Length 4C 8.4 cm LV Diastolic Volume MOD 2C 202.4 cm??? LV Systolic Volume MOD 2C 160.1 cm??? LV Ejection Fraction MOD 2C 20.9 % LV Cardiac Index MOD 2C 2515.9 cm???/min???m??? LV Diastolic Length 2C 9.1 cm LV Systolic Length 2C 8.6 cm LA Volume 81.2 cm??? 18 - 58 / 22 - 52 cm??? LA Volume Index 50.4 cm???/m??? 16 - 28 cm???/m??? DOPPLER AV Peak Velocity 98.3 cm/s AV Peak Gradient 3.9 mmHg AV Mean Velocity 66.8 cm/s AV Mean Gradient 2.0 mmHg AV Velocity Time Integral 15.3 cm LVOT Peak Velocity 62.3 cm/s LVOT Peak Gradient 1.6 mmHg LVOT Velocity Time Integral 9.6 cm LVOT Stroke Volume 51.9 cm??? LVOT Stroke Volume Index 32.0 ml/m??? LVOT Cardiac Index 3092.2 cm???/min???m??? AV Area Cont Eq vti 3.4 cm??? AV Area Cont Eq pk 3.4 cm??? MV Area PHT 16.1 cm??? Mitral E Point Velocity 56.0 cm/s Mitral A Point Velocity 80.4 cm/s Mitral E to A Ratio 0.7 MV Deceleration Time 47.2 ms TR Peak Velocity 210.6 cm/s TR Peak Gradient 17.7 mmHg Right Atrial Pressure 5.0 mmHg Pulmonary Artery Systolic Pressu 22.7 mmHg Right Ventricular Systolic Press 22.7 mmHg PV Peak Velocity 56.0 cm/s PV Peak Gradient 1.3 mmHg FINDINGS Left Ventricle Left ventricular ejection fraction is estimated at 15-20 %. Moderately increased left ventricular diastolic diameter. Severely increased left ventricular diastolic volume. Severely increased left ventricular systolic volume. Severely decreased left ventricular ejection fraction. Cannot exclude left ventricular thrombus. Right Ventricle Normal right ventricular size. Reduced right ventricular global systolic function. Right ventricular systolic pressure within normal limits. Right Atrium Normal right atrial size. Left Atrium Severely increased left atrial volume. Mildly increased left atrial area. Mitral Valve Structurally normal mitral valve. No evidence for mitral valve prolapse. No mitral stenosis. Mild mitral regurgitation. Aortic Valve Aortic valve not well visualized. No aortic valve stenosis or regurgitation. Tricuspid Valve Structurally normal tricuspid valve. No tricuspid stenosis. Mild tricuspid regurgitation. Pulmonic Valve Pulmonic valve not well visualized. No pulmonic stenosis. No pulmonic regurgitation. Pericardium No pericardial effusion. Pleural effusion. Aorta Aortic annulus normal. CONCLUSIONS Indication: TIA, cardiomyopathy LVEF 15 to 20%. Severely reduced global LV systolic function Moderate LV cavity dilatation. Cannot rule out LV thrombus. Patient refused Definity Severe left atrial dilatation Mild mitral regurgitation Normal RV size with reduced systolic function. No pericardial effusion. Left pleural effusion noted No prior echo to compare with in database. Previewed by: Dr Kevon Hernandez (Electronically Signed) Final Date: 12 October 2024 17:48
== END | disposition home or self-care (01) ==
LOC: RADECHMAIN 14:45
PROVIDERS: ATTEND Internal Medicine Geriatric Medicine
DX: I34.0 Nonrheumatic mitral (valve) insufficiency (principal); G45.9 Transient cerebral ischemic attack, unspecified; I42.9 Cardiomyopathy, unspecified; I51.7 Cardiomegaly; J90 Pleural effusion, not elsewhere classified
CPT/HCPCS: 93306